=== PATIENT | female | born 1960 | race Caucasian/White ===

== ENCOUNTER 2019-07-12 13:52 | Emergency (ER) | payer MEDICARE, MEDICAID, SELFPAY ==
--- NOTE | ~2019-07-12 | XR_ITS ---
EXAMINATION: XR wrist LT min 3V DATE: 07/12/2019 14:36 INDICATION: Left wrist pain, initial encounter TECHNIQUE: Posteroanterior, ulnar deviation, oblique, and lateral views of the left wrist were obtain ed. COMPARISON: 07/19/2018 FINDINGS: There is no fracture, dislocation, or subluxation. There is advanced osteoarthritis at the triscaphe and first carpometacarpal joints. The soft tissues are normal. IMPRESSION: 1. Osteoarthritis without acute osseous abnormality. Reviewed, dictated and finalized at location A.
[2019-07-12 14:10] VITALS: BP 146/90; PULSE 98; RESP 20; TEMP 36.7; O2SAT 97
--- NOTE | 2019-07-12 14:22 | ED.GENADULT ---
HPI - General Adult General Chief complaint: Extremity Injury, Upper Stated complaint: Wrist pain History of Present Illness HPI narrative: Mercy vance a 59 presented to the ED with pain in her left wrist. She was pulling the starter string on a piece of gardening equipment. After pulling the string back her hand jerked back forward. She had immediate pain at the base of her left thumb and in her wirst. She is not sure if she hit it on anything. She had no other injuries during the incident. Related Data Home Medications Medication Instructions Recorded Confirmed albuterol sulfate 2.5 mg INHALATION PRN PRN ml 03/31/19 07/12/19 fluticasone furoate 200 1 inhalation INHALATION DAILY 03/31/19 07/12/19 mcg-vilanterol 25 mcg/dose inhalation powder tiotropium bromide 2.5 2 puff INHALATION DAILY 03/31/19 07/12/19 mcg/actuation mist for inhalation Allergies Allergy/AdvReac Type Severity Reaction Status Date / Time No Known Allergies Allergy Verified 06/26/19 15:03 Review of Systems Constitutional: Constitutional: Reports no additional constitutional complaints Cardiovascular: Cardiovascular: Reports no additional cardiovascular complaints Respiratory: Respiratory: Reports no additional respiratory complaints Gastrointestinal: Gastrointestinal: Reports no additional gastrointestinal complaints Genitourinary: Genitourinary: Reports no additional female genitourinary complaints Musculoskeletal: Musculoskeletal: Reports no additional musculoskeletal complaints Neurologic: Reports system reviewed and no additional complaints, except as documented [facility] Past Medical History Medical History Tobacco dependence Surgical History Surgical History History of carpal tunnel release History of hysterectomy Hx of cholecystectomy Status post right rotator cuff repair Social History Social History Smoking status: Former smoker Alcohol intake: never Substance use: never Substance use type: does not use Additional occupation/education comments: Disabled Gender identity (if verbalized by the patient): Female Exam Const: General: no acute distress and alert Orientation/consciousness: patient oriented x3 Limitations: No altered mental status HENMT: Other: Normocephalic, atraumatic Eyes: Conjunctivae: conjunctivae normal Neck: Neck: normal visual inspection Resp: Other: Speaks in complete sentences, non-labored respirations Cardio: Rate: regular rate Skin: General skin exam: normal color Rashes: no rashes Neuro: General: patient oriented x3 and moves all extremities Extrem: Other: Left hand has no deformity or discoloration. Sensation intact in all dermatomes and all digits. Radial pulse strong and palpable. Cap refill <1 sec in all digits 5/5 personnel research psychologist strength bilaterally. TTP at the base of the right thumb, anatomic snuff box, and radial side of the left. +Grind test on the left thumb. pain with resisted extension of the left thumb. Psych: Mental Status: mental status grossly normal Course Course Emergency Course: Mercy was seen and evaluated. Given 30mg of Toradol IM for pain. Ordered radiographs of the wrist and scaphoid. EXAMINATION: XR wrist LT min 3V DATE: 07/12/2019 14:36 INDICATION: Left wrist pain, initial encounter TECHNIQUE: Posteroanterior, ulnar deviation, oblique, and lateral views of the left wrist were obtained. COMPARISON: 07/19/2018 FINDINGS: There is no fracture, dislocation, or subluxation. There is advanced osteoarthritis at the triscaphe and first carpometacarpal joints. The soft tissues are normal. IMPRESSION: 1. Osteoarthritis without acute osseous abnormality. Vital Signs Vital signs: Vital Signs Temperature 36.7 C 07/12/19 14:10 Pulse Rate 98 07/12/19 14:10 Respiratory Rate 20 04
[2019-07-12] MEDS: KETOROLAC 30 MG/ML VIAL (*BKC) IM (14:27)
[2019-07-12 15:10] VITALS: RESP 15; O2SAT 100
--- NOTE | 2019-07-12 15:17 | PC.NURSE ---
WRIST SPLINT PLACED ON BY ERP
== END 2019-07-12 15:14 | disposition home or self-care (01) ==
PROVIDERS: Emergency Provider Family Medicine; PCP Family Medicine
DX: M25.532 Pain in left wrist (principal)
CPT/HCPCS: 73110; 96372; 99282; 99283; J1885; L3908

== ENCOUNTER 2019-09-20 08:08 | Emergency (ER) | payer MEDICARE, MEDICAID, SELFPAY ==
--- NOTE | ~2019-09-20 | XR_ITS ---
EXAMINATION: XR abdomen/kub 1V DATE: 09/20/2019 08:59 INDICATION: Abdominal cramping and constipation TECHNIQUE: A supine view of the abdomen on 2 radiographs was obtained. COMPARISON: 08/03/2013 FINDINGS: Small amount of gas and moderate amount of stool scattered throughout the colon. No dilated gas-fille d loops of bowel to suggest obstruction. Cholecystectomy clips in the right upper quadrant. IMPRESSION: 1. Moderate amount of colonic stool consistent with given history of constipation. Reviewed, dictated and finalized at location A. IMPRESSION: 1. Moderate amount of colonic stool consistent with given history of constipati on.
[2019-09-20 08:27] VITALS: BP 135/77; PULSE 86; RESP 20; TEMP 36.6; O2SAT 95
--- NOTE | 2019-09-20 08:27 | ED.ABDPAIN ---
HPI - Abdominal Pain General Chief Complaint: Urogenital-Female Stated Complaint: ABD PAIN Time Seen by Provider: 09/20/19 08:27 Source: patient and RN notes reviewed Mode of arrival: ambulatory Limitations: no limitations History of Present Illness HPI narrative: Patient states she has been having problems since Wednesday now 5 days ago. She has been having problems with constipation. She tried Metamucil Ex-Lax. She began cramping when she took the Ex-Lax last night. She only had a small amount of stool yesterday. She denies any urinary symptoms. She denies any fever chills nausea vomiting. Pain is generalized throughout her entire abdomen. MD elicited complaint: abdominal pain Pertinent past history: constipation Onset (ago): day(s) (5) Pain Consistency: intermittent and colicky Location: diffuse Severity: moderate Quality: cramping Radiation: none Migration to: no migration Exacerbating factors: eating Relieving factors: nothing Associated symptoms: denies other symptoms Treatments prior to arrival: other (Exlax, Metamucil) Related Data Home Medications Medication Instructions Recorded Confirmed albuterol sulfate 2.5 mg INHALATION PRN PRN ml 03/31/19 09/20/19 tiotropium bromide 2.5 2 puff INHALATION DAILY 03/31/19 09/20/19 mcg/actuation mist for inhalation Allergies Allergy/AdvReac Type Severity Reaction Status Date / Time No Known Allergies Allergy Verified 09/04/19 09:35 Review of Systems Review of Systems: All systems reviewed & are unremarkable except as noted in HPI and below PMFSH Past Medical History Medical History Tobacco dependence Surgical History Surgical History History of carpal tunnel release History of hysterectomy Hx of cholecystectomy Status post right rotator cuff repair Social History Social History Smoking status: Current some day smoker Alcohol intake: never Substance use: never Substance use type: does not use Additional occupation/education comments: Disabled Gender identity (if verbalized by the patient): Female Exam Const: General: healthy appearing, no acute distress and alert Nutritional Appearance: well nourished and obese centrally obese Orientation/consciousness: patient oriented x3 HENMT: Head: normal to inspection Ears: external ears normal General nose exam: Normal external nose present Face and sinus: normal facial exam Mouth: Yes lip normal and Yes moist mucous membranes Eyes: Conjunctivae: conjunctivae normal Pupils: Equal, round and reactive pupils present EOM: EOMs intact bilaterally Neck: Neck: normal visual inspection Resp: Effort & Inspection: normal respiratory effort Auscultation: clear to auscultation bilaterally Cardio: Rate: regular rate Rhythm: regular rhythm GI: GI Palp: Yes Soft to palpation, Yes Tenderness to palpation present (GI) (LLQ and difusley ), Yes Guarding due to palpation present (GI) and No Rebound tenderness present Auscultation: normal bowel sounds Back/Spine/Pelvis: Cervical Spine: cervical ROM normal Thoracic/Lumbar Spine: thoraco-lumbar ROM normal Skin: General skin exam: normal color Rashes: no rashes Neuro: General: patient oriented x3, moves all extremities and no focal motor deficits Speech: normal speech Gait exam (Neuro): Normal gait present Extrem: General: normal to inspection and no clubbing, cyanosis or edema Psych: Appearance: grossly normal and well kempt Mental Status: mental status grossly normal Affect: normal affect Attitude: cooperative Thought content: Yes Normal thought content present Course Course Emergency Course: patient had 2 rounds of enemas for her constipation. She feels significantly improved. Advised to use Mag citrate. Follow up with her primary care if significantly improved. Discharge Plan D
--- NOTE | 2019-09-20 08:57 | PC.NURSE ---
pt to xray per wheelchair
--- NOTE | 2019-09-20 09:01 | PC.NURSE ---
pt returned to room
[2019-09-20 09:05] LABS: Add Urine Microscopic? YES; Appearance Urine Clear (Clear); Bilirubin Urine 1+ (Negative); Blood Urine Negative (Negative); Color Urine Yellow (Yellow); Glucose Urine UA Negative (Negative); Ketones Urine Trace (Negative); Leukocyte Esterase Ur Negative (Negative); Nitrate Urine Positive (Negative); Protein Urine 1+ (Negative); Specific Grav Ur >= 1.030 (1.010-1.020)
[2019-09-20 09:09] LABS: Bacteria Urine 1+ /hpf; Mucus Urine Moderate /lpf; RBC Urine 0-2 /hpf (0-2); Squamous Epithelial Cell Urine Few /hpf (Few); WBC Urine 0-3 /hpf (0-3)
--- NOTE | 2019-09-20 09:34 | PC.NURSE ---
pt resting per commode, feels pressure in rectum. no stool noted on tubing when inserted
[2019-09-20 10:10] VITALS: BP 163/96; PULSE 78; RESP 20; TEMP 36.6; O2SAT 98
== END 2019-09-20 10:14 | disposition home or self-care (01) ==
PROVIDERS: Emergency Provider Emergency Medicine; PCP Nurse Practitioner Family
DX: K59.00 Constipation, unspecified (principal); F17.200 Nicotine dependence, unspecified, uncomplicated
CPT/HCPCS: 74018; 81001; 99282; 99283

== ENCOUNTER 2019-10-05 14:14 | Outpatient (CLI) | payer MEDICARE, MEDICAID, SELFPAY ==
--- NOTE | ~2019-10-05 | DEXA_ITS ---
BMD(1) Young-Adult(2) Age-Matched(3) Region (g/cm2) T-score Z-score WHO Classification L1 0.927 -1.7 -1.0 Osteopenia L2 1.022 -1.6 -0.8 Osteopenia L3 0.979 -1.9 -1.2 Osteopenia L4 1.046 -1.3 -0.6 Osteopenia L1-L4 0.996 -1.6 -0.9 Osteopenia Trend: L1-L4 Change vs Change vs Measured Age BMD(1) Baseline Previous Date [age]) (g/cm2) (%) (%) [birth year][age]05[birth year]2019 59.3 0[age]996 0.0 0.0 06/04/2017 57.0 0.996 0.0 6.2* 02/21/2016 55.7 0.938 -5.8* -5.8* 07/21/2013 53.1 0.996 baseline - * - Indicates significant change based on 95% confidence interval. 1 - Statistically 68% of repeat scans fall within 1SD (+- 0.010 g/cm2 for AP Spine L1-L4) 2 - [place] (Combined NHANES (ages 20-30) / Red e App (ages 20-40)) AP Spine Reference Population (v112) 3 - Matched for Age, Weight (females 25-100 kg), Ethnic 11 - World Health Organization - Definition of Osteoporosis and Osteopenia for Women: Normal = T-score at or above -1.0 SD; Osteopenia = T-score between -1.0 and -2.5 SD; Osteoporosis = T-score at or below -2.5 SD; (WHO definitions only apply when a young healthy Women reference database is used to determine T-scores.) Printed: 10/05/2019 2:55:06 PM (13.60)76:3.00:50.00:12.0 0.00:10.44 0.60x1.05 25.7:%Fat=37.8% 0.00:0.00 0.00:0.00 Filename: [id number] Scan Mode: Standard;OneScan 37.0 Bonegrafix [id number] BMD(1) Young-Adult(2,7) Age-Matched(3) Region (g/cm2) T-score Z-score WHO Classification Neck Left 0.985 -0.4 0.6 Normal Right 1.033 0.0 0.9 Normal Mean 1.009 -0.2 0.7 Normal Difference 0.048 0.3 0.3 - Total Left 1.057 0.4 1.0 Normal Right 1.073 0.5 1.1 Normal Mean 1.065 0.5 1.0 Normal Difference 0.016 0.1 0.1 - Hip [place] Length Comparison (mm) (Right = 95.8 mm) (Mean = 102.3 mm) (Left = 93.9 mm) Trend: Total Mean Change vs Change vs Measured Age BMD(1) Baseline Previous Date (years) (g/cm2) (%) (%) [birth year]05/2019 59.3 1.065 1.8 1.8 07/21/2013 53.1 1.046 baseline - 1 - Statistically 68% of repeat scans fall within 1SD (+- 0.010 g/cm2 for DualFemur Total) 2 - [place] (Combined NHANES (ages 20-30) / Red e App (ages 20-40)) Femur Reference Population (v112) 3 - Matched for Age, Weight (females 25-100 kg), Ethnic 7 - DualFemur Total T-score difference is 0.1. Asymmetry is None. 11 - World Health Organization - Definition of Osteoporosis and Osteopenia for Women: Normal = T-score at or above -1.0 SD; Osteopenia = T-score between -1.0 and -2.5 SD; Osteoporosis = T-score at or below -2.5 SD; (WHO definitions only apply when a young healthy Women reference database is used to determine T-scores.) Printed: 10/05/2019 2:55:06 PM (13.60); Filename: [id number]; Right Femur; 19.0:%Fat=38.1%; Neck Angle (deg)= 66; Scan Mode: Standard 37.0 uGy; Left Femur; 19.1:%Fat=36.9%; Neck Angle (deg)= 67; Scan Mode: Standard 37.0 uGy Cintric [id number] Dear Meggan Wang, Your patient Mercy Martinez completed a BMD test on 10/05/2019 using the Cintric DXA System (analysis version: 13.60) manufactured by [employer]. The following summarizes the results of our evaluation. PATIENT BIOGRAPHICAL: Name: Mercy Martinez
== END 2019-10-05 14:15 | disposition home or self-care (01) ==
LOC: CHSIMG 14:16
PROVIDERS: PCP Nurse Practitioner Family; Visit Provider Nurse Practitioner Family
DX: M85.80 Other specified disorders of bone density and structure, unspecified site (principal); Z78.0 Asymptomatic menopausal state; F17.200 Nicotine dependence, unspecified, uncomplicated; Z92.29 Personal history of other drug therapy
CPT/HCPCS: 77080

== ENCOUNTER 2020-02-14 15:12 | Outpatient (CLI) | payer MEDICARE, SELFPAY ==
[2020-02-14 16:13] LABS: SARS-CoV-2 Ag Negative (Negative)
== END 2020-02-14 15:13 | disposition home or self-care (01) ==
LOC: CHSLAB 15:14
PROVIDERS: PCP Nurse Practitioner Family; Visit Provider Nurse Practitioner Family
DX: Z20.828 Contact with and (suspected) exposure to other viral communicable diseases (principal)
CPT/HCPCS: 87426

== ENCOUNTER 2020-04-01 14:14 | Outpatient (CLI) | payer MEDICARE, MEDICAID, SELFPAY ==
[2020-04-01 22:17] LABS: SARS-CoV-2 RNA PCR Positive
== END 2020-04-01 14:15 | disposition home or self-care (01) ==
LOC: CHSLAB 14:21
PROVIDERS: PCP Nurse Practitioner Family; Visit Provider Nurse Practitioner Family
DX: U07.1 COVID-19 (principal); R05 Cough
CPT/HCPCS: C9803; U0003

== ENCOUNTER 2020-05-21 13:39 | Outpatient (CLI) | payer MEDICARE, MEDICAID, SELFPAY ==
--- NOTE | ~2020-05-21 | XR_ITS ---
XR chest 2V DATE: 05/21/2020 14:10 INDICATION: Shortness of breath, right chest pain TECHNIQUE: PA and lateral views COMPARISON: 10/25/2018 2 view chest FINDINGS: Normal heart size. There is aortic tortuosity. The lungs are hyperinflated, suggesting COPD. No pulmonary infiltrate or consolidation, pleural effus ion or pulmonary vascular congestion or pneumothorax is detected. Surgical clips, right upper quadrant, consistent with cholecystectomy. Suture anchors noted at the right humeral head. Diffuse osteopenia. IMPRESSION: Bilateral hyperinflation; no active cardiopulmonary disease Reviewed, dictated and finalized at location A. STANT MANAGER [employer]
[2020-05-21 13:53] LABS: Basophils Absolute Auto 0.04 K/mm3 (0.00-0.10); Basophils Percent Auto 0.8 % (0.0-1.0); Eosinophils Absolute Auto 0.16 K/mm3 (0.02-0.50); Eosinophils Percent Auto 3.2 % (1.0-6.0); Hematocrit 33.2 % (35.0-49.0); Hemoglobin 10.8 g/dL (12.0-15.0); Immature Granulocyte Absolute 0.01 K/mm3 (0.00-0.00); Immature Granulocyte Percent A 0.2 % (0.0-0.0); Lymphocytes Absolute Auto 1.72 K/mm3 (1.10-4.50); Mean Corpuscular HGB Conc 32.5 g/dL (32.0-36.0); Mean Corpuscular Hemoglobin 28.1 pg (27.0-31.0); Mean Corpuscular Volume 86.2 fL (78.0-102.0); Mean Platelet Volume 9.7 fl (9.2-11.8); Monocytes Percent Auto 11.9 % (2.0-11.0); Neutrophils Absolute Auto 2.5 K/mm3 (1.7-7.2); Neutrophils Percent Auto 49.9 % (50.0-70.0); Platelet Count Result 193 K/mm3 (150-420); Red Blood Count 3.85 M/mm3 (4.20-5.40); Red Cell Distribution Width 12.3 % (11.6-14.4); White Blood Count 5.1 K/mm3 (4.8-10.8)
[2020-05-21 15:16] LABS: Alanine Aminotransferase 21 U/L (14-59); Alkaline Phosphatase 53 U/L (46-116); Anion Gap 9 mmol/L (8-16); Aspartate Amino Transferase 16 U/L (15-37); Bilirubin,Total 0.3 mg/dL (0.00-1.00); Blood Urea Nitrogen 18 mg/dL (7-18); Calcium 8.8 mg/dL (8.5-10.1); Carbon Dioxide 27 mmol/L (21-32); Chloride 106 mmol/L (98-108); Cholesterol 117 mg/dL (0-200); Estimated Glomerular Filt Rate > 60; Folic Acid 17.3 ng/mL (8.6->20); Glucose 166 mg/dL (70-99); HDL Direct 49 mg/dL (40-60); LDL Cholesterol Calculated 41 mg/dL (<130); Magnesium 1.8 mg/dL (1.8-2.4); Osmolality Calculated 299 mOsm/kg (285-295); Potassium 3.5 mmol/L (3.5-5.1); Sodium 142 mmol/L (136-145); Total Protein 6.2 g/dL (6.4-8.2); Triglycerides 135 mg/dL (0-150); Vitamin B12 153 pg/mL (193-986)
[2020-05-21 16:11] LABS: Hemoglobin A1C 5.8 % (<5.7)
[2020-05-23 11:55] LABS: Vitamin D 25 Hydroxy 51 ng/mL (30-100)
== END 2020-05-21 13:40 | disposition home or self-care (01) ==
LOC: CHSLAB 13:43
PROVIDERS: PCP Family Medicine; Visit Provider Nurse Practitioner Family
DX: B94.8 Sequelae of other specified infectious and parasitic diseases (principal); R06.02 Shortness of breath; E83.42 Hypomagnesemia; I10 Essential (primary) hypertension; R73.01 Impaired fasting glucose; Z79.899 Other long term (current) drug therapy
CPT/HCPCS: 36415; 71046; 80053; 80061; 82306; 82607; 82746; 83036; 83735; 85025

== ENCOUNTER 2020-06-04 14:03 | Emergency (ER) | payer MEDICARE, MEDICAID, SELFPAY ==
[2020-06-04] VITALS (11 sets, daily range): BP systolic 135–156; BP diastolic 63–94; PULSE 98–123; RESP 20–24; TEMP 36.8; O2SAT 92–100
--- NOTE | ~2020-06-04 | XR_ITS ---
EXAMINATION: XR chest 1V portable EXAM DATE: 06/04/2020 15:02 INDICATION: Cough and shortness of breath. TECHNIQUE: Portable AP frontal chest x-ray was obtained. Comparison is made to prior examination from 05/21/2020. FINDINGS: The lungs are clear. There are no pleural effusions. The cardiomediastinal silhouette is within normal limits. There is no pneumothorax suspected. The bones and soft tissues are unremarkab le. IMPRESSION: No acute cardiopulmonary findings. Reviewed, dictated and finalized at location B. FRAME ARCHITECT
--- NOTE | 2020-06-04 14:21 | ECG_ITS ---
Measurements Intervals [place] Rate: 90 P: 74 MI: 131 QRS: 41 QRSD: 86 T: 63 QT: 366 QTc: 449 Interpretive Statements SINUS RHYTHM VOLTAGE CRITERIA FOR LVH BORDERLINE ECG Electronically Signed On 06-04-2020 16:37:36 HEAD OF ETHICS AND COMPLIANCE by Brandon Weinstein D.O.
[2020-06-04] MEDS: IPRATROPIUM 0.5 MG/ALBUTEROL SULFATE 2.5 MG AMPUL.NEB 3 ML INHALATION (14:39)
[2020-06-04 14:41] LABS: Base Excess ABG 2.3 mmol/L (0-2); Carboxyhemoglobin 0.4 % (0-1.5); Methemoglobin ABG 0 % (0-1.5); Oxygen Content ABG 16.5 %vol (16.0-22.0); Oxygen Saturation ABG 96.7 % (95-97); Oxyhemoglobin 96.3 % (94-100); PCO2 ABG 47.7 mmHg (35-45); PO2 ABG 93.1 mmHg (80-90); Reduced Hemoglobin 3.3 % (0-1.5); Total Hemoglobin 12.1 g/dL; pH ABG 7.39 (7.35-7.45)
[2020-06-04 14:44] LABS: Modified Allen's Test Pass; Site Drawn RIGHT RADIAL
[2020-06-04 14:45] LABS: Device NASAL CANNULA
[2020-06-04 14:48] LABS: Basophils Absolute Auto 0.03 K/mm3 (0.00-0.10); Basophils Percent Auto 0.5 % (0.0-1.0); Eosinophils Absolute Auto 0.21 K/mm3 (0.02-0.50); Eosinophils Percent Auto 3.8 % (1.0-6.0); Hematocrit 35.3 % (35.0-49.0); Hemoglobin 11.4 g/dL (12.0-15.0); Immature Granulocyte Absolute 0.02 K/mm3 (0.00-0.00); Immature Granulocyte Percent A 0.4 % (0.0-0.0); Lymphocytes Absolute Auto 0.59 K/mm3 (1.10-4.50); Lymphocytes Percent Auto 10.6 % (18.0-42.0); Mean Corpuscular HGB Conc 32.3 g/dL (32.0-36.0); Mean Corpuscular Hemoglobin 27.5 pg (27.0-31.0); Mean Corpuscular Volume 85.1 fL (78.0-102.0); Mean Platelet Volume 10.4 fl (9.2-11.8); Monocytes Percent Auto 1.8 % (2.0-11.0); Neutrophils Absolute Auto 4.6 K/mm3 (1.7-7.2); Neutrophils Percent Auto 82.9 % (50.0-70.0); Platelet Count Result 204 K/mm3 (150-420); Red Blood Count 4.15 M/mm3 (4.20-5.40); Red Cell Distribution Width 12.2 % (11.6-14.4); White Blood Count 5.6 K/mm3 (4.8-10.8)
[2020-06-04 14:52] LABS: Anion Gap 9 mmol/L (8-16); Blood Urea Nitrogen 14 mg/dL (7-18); Calcium 9.8 mg/dL (8.5-10.1); Carbon Dioxide 25 mmol/L (21-32); Chloride 104 mmol/L (98-108); Estimated CRCL calculation 69 ml/min; Estimated Glomerular Filt Rate > 60; Glucose 168 mg/dL (70-99); Osmolality Calculated 290 mOsm/kg (285-295); Sodium 138 mmol/L (136-145)
[2020-06-04] MEDS: ALBUTEROL SULFATE NEB 2.5 MG/3 ML INH 10 MG INHALATION (15:00)
[2020-06-04 15:01] LABS: D Dimer 0.55 mg/L (0.19-0.50)
[2020-06-04 15:06] LABS: BNP 546 pg/mL (0-100)
[2020-06-04] MEDS: DEXAMETHASONE SOD PHOS INJ 4 MG/ML VIAL 10 MG IV PUSH (15:06)
--- NOTE | 2020-06-04 15:38 | ED.SOB ---
HPI - SOB/Dyspnea General Chief Complaint: Shortness of Breath/Dyspnea Stated Complaint: cough sob sore throat Source: patient Mode of arrival: EMS Limitations: no limitations History of Present Illness HPI Narrative: Pt was brought to ED with SOB. Had been using her nebulizers at home, but just cant break the SOB. no fevers, but does have nausea and vomiting. MD elicited complaint: shortness of breath Pertinent past history: COPD Onset (ago): hour(s) Timing: constant Severity: moderate Exacerbating factors: exertion Relieving factors: nothing Known history of: COPD Associated symptoms: denies other symptoms, cough, wheezing and nausea/vomiting Treatment prior to arrival: bronchodilator Related Data Home Medications Medication Instructions Recorded Confirmed tiotropium bromide 2.5 2 puff INHALATION DAILY 03/31/19 06/04/20 mcg/actuation mist for inhalation Allergies Allergy/AdvReac Type Severity Reaction Status Date / Time No Known Allergies Allergy Verified 06/04/20 13:24 Review of Systems Constitutional: Constitutional: Denies chills, Reports fatigue, Denies fever(s) and Reports weakness Eyes: Eyes: Reports no additional eye complaints ENT: Denies dysphagia, Denies dizziness, Denies epistaxis, Denies nasal congestion and Reports sore throat Cardiovascular: Cardiovascular: Reports no additional cardiovascular complaints Respiratory: Respiratory: Reports no additional respiratory complaints Gastrointestinal: Gastrointestinal: Denies abdominal pain, Denies bloating, Denies constipation, Reports heartburn, Denies diarrhea, Reports nausea and Reports vomiting Genitourinary: Genitourinary: Reports no additional female genitourinary complaints Musculoskeletal: Musculoskeletal: Reports no additional musculoskeletal complaints Integumentary/Breasts: Skin/Breast: Reports system reviewed and no additional complaints, except as docu Neurologic: Reports system reviewed and no additional complaints, except as documented Psychiatric: Psychiatric: Reports no additional psychiatric complaints Endocrine: Endocrine: Reports no additional endocrine complaints Hematologic/Lymphatic: Hematologic/Lymphatic: Reports no additional hematologic/lymphatic complaints Allergic/Immunologic: Allergic/Immunologic: Reports no additional allergic/immunologic complaints PMFSH Past Medical History Medical History Cough Elevated glucose level Exposure to COVID-19 virus Positive depression screening Shortness of breath Tobacco dependence Surgical History Surgical History History of carpal tunnel release History of hysterectomy Hx of cholecystectomy Status post right rotator cuff repair Social History Social History Smoking status: Current every day smoker Alcohol intake: never Substance use: never Substance use type: does not use Additional occupation/education comments: Disabled Gender identity (if verbalized by the patient): Female Exam Const: General: no acute distress and alert Orientation/consciousness: patient oriented x3 HENMT: Head: normal to inspection Eyes: Conjunctivae: conjunctivae normal Pupils: Equal, round and reactive pupils present Neck: Neck: normal visual inspection Chest: Chest palpation & inspection: normal inspection of the chest Resp: Effort & Inspection: normal respiratory effort and uses accessory muscles Auscultation: diminished lung sounds Cardio: Rate: tachycardic Rhythm: regular rhythm GI: Inspection: non-distended GI Palp: Yes Soft to palpation and No Tenderness to palpation present (GI) Back/Spine/Pelvis: Back: no CVA tenderness Skin: General skin exam: normal color Rashes: no rashes Neuro: General: patient oriented x3, moves all extremities, no focal motor deficits and CN's II-XI
== END 2020-06-04 18:18 | disposition home or self-care (01) ==
PROVIDERS: Nurse Practitioner; Emergency Provider Emergency Medicine; PCP Family Medicine
DX: J44.9 Chronic obstructive pulmonary disease, unspecified (principal); F17.200 Nicotine dependence, unspecified, uncomplicated
CPT/HCPCS: 36415; 36600; 71045; 80048; 82375; 82805; 83050; 83880; 85025; 85380; 93005; 94640; 96374; 99283; 99284; J1100

== ENCOUNTER 2020-08-16 16:38 | Outpatient (NON) | payer MEDICARE, MEDICAID, SELFPAY | END 2020-08-16 16:39 | disposition home or self-care (01) | LOC: CHSLAB 16:42 | PROVIDERS: PCP Nurse Practitioner Family; Visit Provider Nurse Practitioner Family | DX: Z12.4 Encounter for screening for malignant neoplasm of cervix (principal) | CPT/HCPCS: 88175; G0145 ==

== ENCOUNTER 2021-03-13 07:34 | Observation (INO) | payer MEDICARE, MEDICAID, SELFPAY ==
--- NOTE | ~2021-03-13 | XR_ITS ---
EXAMINATION: XR chest 2V EXAM DATE: 03/13/2021 09:26 INDICATION: shortness of breath, pain under RT breast, hx COPD. TECHNIQUE: Frontal and lateral projections of the chest obtained and reviewed. Comparison is made to prior examination from 06/04/2020. FINDINGS: The lungs are clear. There are no pleural effusions. The cardiomediastinal silhouette is within normal limits. There is no pneumothorax suspected. The bones and soft tissues are unremarkab le. There are cholecystectomy clips. Right shoulder rotator cuff repair anchors. IMPRESSION: No acute cardiopulmonary findings. Reviewed, dictated and finalized at location B. RIAL ASSEMBLER
--- NOTE | ~2021-03-13 | CT_ITS ---
EXAMINATION: CT abdomen pelvis w con EXAM DATE: 03/13/2021 09:04 INDICATION: Abdominal pain pain under right breast since 2am with SOB. TECHNIQUE: Spiral CT of the abdomen and pelvis was performed following intravenous injection of 100 m L Omnipaque 350. Axial, coronal and sagittal images of the abdomen and pelvis were reviewed. The do se-length product (DLP) for this examination was 367.55 mGy-cm. The exposure was tailored according to patient size (auto mA exposure control), and iterative reconstruction (ASIR) was used as additiona l dose reduction technique. Correlation is made to CT pelvis from 07/19/2018. FINDINGS: The liver, spleen, adrenal glands and pancreas are unremarkable. There are cholecystectomy clips. Portal and splenic veins are patent. Kidneys enhance symmetrically. There is no hydronephr osis. Atrophic uterus The bladder is unremarkable. There is no retroperitoneal or pelvic lymphade nopathy. There is mild scattered arteriosclerotic disease. There is [place] supraumbilical fat-co ntaining hernia measuring 4 x 7 cm. The appendix is normal. There is moderate sigmoid predominant colonic diverticulosis. There is no ad jacent inflammatory change to suggest diverticulitis. There is a 3 x 4 cm duodenal diverticulum. The re is expected amount of colonic stool. No free intraperitoneal gas. The heart is normal in size. There are no pericardial or pleural effusions. Small amount of basilar atelectasis. There are no acute fractures identified. IMPRESSION: 1. No acute intra-abdominal findings. 2. Moderate sized supraumbilical fat-containing hernia. 3. Colonic, duodenal diverticulosis. Reviewed, dictated and finalized at location B. T MANAGER
[2021-03-13 07:35] VITALS: BP 162/71; PULSE 105; RESP 24; TEMP 36.6; O2SAT 93
--- NOTE | 2021-03-13 07:42 | ECG_ITS ---
Measurements Intervals [place] Rate: 106 P: 67 NM: 126 QRS: 33 QRSD: 92 T: 26 QT: 330 QTc: 439 Interpretive Statements SINUS TACHYCARDIA VOLTAGE CRITERIA FOR LVH MINIMAL Q WAVES- INF/LAT LEADS ABNORMAL ECG Electronically Signed On 03-13-2021 11:00:38 MANAGER [employer]AMP by Brandon Weinstein D.O.
[2021-03-13 08:00] VITALS: BP 128/61; PULSE 103; PULSE 105; RESP 22; RESP 24; TEMP 37.2; O2SAT 93; O2SAT 94
[2021-03-13 08:11] LABS: Basophils Absolute Auto 0.03 K/mm3 (0.00-0.10); Basophils Percent Auto 0.3 % (0.0-1.0); Eosinophils Absolute Auto 0.05 K/mm3 (0.02-0.50); Eosinophils Percent Auto 0.5 % (1.0-6.0); Hematocrit 32.5 % (35.0-49.0); Hemoglobin 10.8 g/dL (12.0-15.0); Immature Granulocyte Absolute 0.02 K/mm3 (0.00-0.00); Immature Granulocyte Percent A 0.2 % (0.0-0.0); Lymphocytes Absolute Auto 3.01 K/mm3 (1.10-4.50); Lymphocytes Percent Auto 30.6 % (18.0-42.0); Mean Corpuscular HGB Conc 33.2 g/dL (32.0-36.0); Mean Corpuscular Hemoglobin 26.9 pg (27.0-31.0); Mean Platelet Volume 10.2 fl (9.2-11.8); Monocytes Absolute Auto 1.47 K/mm3 (0.10-0.90); Monocytes Percent Auto 14.9 % (2.0-11.0); Neutrophils Absolute Auto 5.3 K/mm3 (1.7-7.2); Neutrophils Percent Auto 53.5 % (50.0-70.0); Platelet Count Result 163 K/mm3 (150-420); Red Blood Count 4.01 M/mm3 (4.20-5.40); Red Cell Distribution Width 13.2 % (11.6-14.4); White Blood Count 9.8 K/mm3 (4.8-10.8)
[2021-03-13 08:19] LABS: Add Urine Microscopic? NO; Appearance Urine Clear (Clear); Bilirubin Urine Negative (Negative); Blood Urine Negative (Negative); Color Urine Yellow (Yellow); Glucose Urine UA Negative (Negative); Ketones Urine Negative (Negative); Leukocyte Esterase Ur Negative (Negative); Nitrate Urine Negative (Negative); Protein Urine Negative (Negative); Specific Grav Ur >= 1.030 (1.010-1.020); Urobilinogen Urine 0.2 mg/dL (0.2-1.0)
[2021-03-13] MEDS: SODIUM CHLORIDE 0.9% IV 1,000 ML 999 ML IV CONT (08:22)
[2021-03-13] MEDS: ONDANSETRON INJ 4 MG/2 ML VIAL IV PUSH (08:24)
[2021-03-13] MEDS: MORPHINE SULFATE (*CRX) 4 MG/ML INJ IV PUSH (08:25)
[2021-03-13 08:27] LABS: INR 1.1; Partial Thromboplastin Time 22.9 SEC (23.90-30.70); Prothrombin Time 11.4 Seconds (9.50-12.10)
[2021-03-13 08:31] LABS: Lactic Acid Reflex 2.3 mmol/L (0.4-2.0)
[2021-03-13 08:37] LABS: Alanine Aminotransferase 17 U/L (14-59); Albumin Level 3.1 g/dL (3.4-5.0); Alkaline Phosphatase 91 U/L (46-116); Anion Gap 12 mmol/L (8-16); Aspartate Amino Transferase 22 U/L (15-37); Bilirubin,Total 0.4 mg/dL (0.00-1.00); Blood Urea Nitrogen 18 mg/dL (7-18); Calcium 8.8 mg/dL (8.5-10.1); Carbon Dioxide 25 mmol/L (21-32); Chloride 103 mmol/L (98-108); Estimated CRCL calculation 67 ml/min; Estimated Glomerular Filt Rate > 60; Glucose 146 mg/dL (70-99); Lipase 88 U/L (73-393); Osmolality Calculated 294 mOsm/kg (285-295); Potassium 2.8 mmol/L (3.5-5.1); Sodium 140 mmol/L (136-145); Troponin I 33.2 ng/L (0.00-60.4)
[2021-03-13 08:39] LABS: NT Pro B Type Natriuretic Pept 531 pg/mL (0-125)
[2021-03-13 08:39] LABS: CRP 1.1 mg/dL (0.0-0.9)
[2021-03-13 09:49] VITALS: BP 123/59; PULSE 105; RESP 22; TEMP 37.2; O2SAT 97
--- NOTE | 2021-03-13 09:49 | ED.SOB ---
HPI - SOB/Dyspnea General Chief Complaint: Shortness of Breath/Dyspnea Stated Complaint: pain Source: patient Mode of arrival: ambulatory Limitations: no limitations History of Present Illness HPI Narrative: this is a 60-year-old female that presents with some shortness of breath with some right upper quadrant and epigastric abdominal pain denies any chest pain currently there is no fever chills, with some mild shortness of breath with some no fever chills no cough, patient's main concern is that abdominal pain the epigastric and right upper quadrant started about 1 and 1 in the morning yesterday and has worsened over time. Patient has a history of GERD with history of COPD hypertension and pressure. Patient feels nauseated with no nausea vomiting no dysuria no flank pain and patient is status post cholecystectomy. MD elicited complaint: shortness of breath Pertinent past history: COPD Onset (ago): day(s) Context: anxiety Severity: moderate Related Data Home Medications Medication Instructions Recorded Confirmed tiotropium bromide 2.5 2 puff INHALATION DAILY 03/31/19 03/13/21 mcg/actuation mist for inhalation fluticasone furoate 200 1 ea INHALATION BID 08/09/20 03/13/21 mcg-vilanterol 25 mcg/dose inhalation powder montelukast 10 mg tablet 10 mg PO DAILY tablet 08/09/20 03/13/21 Allergies Allergy/AdvReac Type Severity Reaction Status Date / Time No Known Allergies Allergy Verified 03/07/21 07:02 Review of Systems Review of Systems: All systems reviewed & are unremarkable except as noted in HPI and below PMFSH Past Medical History Medical History Atypical chest pain Cough Elevated glucose level Exposure to COVID-19 virus Family history of other kidney diseases Positive depression screening Shortness of breath Tobacco dependence Surgical History Surgical History History of carpal tunnel release History of hysterectomy Hx of cholecystectomy Status post right rotator cuff repair Family History Family History Father Alcoholic Cancer Mother Asthma Diabetes mellitus Hypertension Depression Thyroid disorder Sibling Asthma Thyroid disorder Other Asthma Thyroid disorder Grandparent Cancer Thyroid disorder Grandparent Cancer Daughter Alports syndrome Social History Social History Smoking status: Current every day smoker Alcohol intake: never Substance use: never Substance use type: does not use Additional occupation/education comments: Disabled Gender identity (if verbalized by the patient): Female Exam Const: General: no acute distress Orientation/consciousness: patient oriented x3 HENMT: Head: normal to inspection Eyes: Conjunctivae: conjunctivae normal Pupils: Equal, round and reactive pupils present EOM: EOMs intact bilaterally Direct Ophthalmoscopy: no photophobia Neck: Neck: normal visual inspection, no lymphadenopathy and no meningeal signs Chest: Chest palpation & inspection: normal inspection of the chest Resp: Effort & Inspection: normal respiratory effort Cardio: Rate: regular rate Rhythm: regular rhythm GI: GI Palp: Yes Soft to palpation and Yes Tenderness to palpation present (GI) ( Tender right upper quadrant epigastric area) Percussion: Yes normal to percussion : General: Yes no CVA tenderness Urinary Catheter: Urinary Catheter: patent and draining Back/Spine/Pelvis: Back: no CVA tenderness Skin: General skin exam: normal color Rashes: no rashes Neuro: General: patient oriented x3 and moves all extremities Extrem: General: normal to inspection and no pedal edema Psych: Mental Status: mental status grossly normal Affect: normal affect Course Course Emergency Course: patient main concern i
[2021-03-13 09:56] VITALS: PULSE 104; RESP 22; O2SAT 94
[2021-03-13 10:53] VITALS: BMI 25.8
--- NOTE | 2021-03-13 11:01 | PC.NURSE ---
Patient admitted to room 204. Oriented to call light. C/O severe pain in R ribs. Frequent dry cough noted.
[2021-03-13 11:06] LABS: Reflex Lactic Acid Yes or No Add Lactic
[2021-03-13 11:25] VITALS: BP 146/67; PULSE 104; RESP 22; TEMP 37.3; O2SAT 94
--- NOTE | 2021-03-13 12:14 | PC.NURSE ---
Patient left AMA at 1205. Patient expressed to nurse that she was upset that MD had ordered her NPO due to nausea, and was upset because she didn't feel that her pain was managed. Patient left without signing AMA form, as she dressed and left without saying anything further.
[2021-03-13 12:22] LABS: SARS-CoV-2 Ag Negative (Negative)
--- NOTE | 2021-03-13 12:31 | PM.SD2 ---
Same Day Admit/Disch: HPI History of Present Illness Chief complaint: pain Narrative: Mercy Martinez is a 60 year old female that presented to our emergency department complaining abdominal pain. Unable to assess patient patient left AMA. I did catch patient while in her car and remove her peripheral IV to her left arm. [facility] Past Medical History Medical History Atypical chest pain Cough Elevated glucose level Exposure to COVID-19 virus Family history of other kidney diseases Positive depression screening Shortness of breath Tobacco dependence Surgical History Surgical History History of carpal tunnel release History of hysterectomy Hx of cholecystectomy Status post right rotator cuff repair Family History Family History Father Alcoholic Cancer Mother Asthma Diabetes mellitus Hypertension Depression Thyroid disorder Sibling Asthma Thyroid disorder Other Asthma Thyroid disorder Grandparent Cancer Thyroid disorder Grandparent Cancer Daughter Alports syndrome Social History Social History Smoking packs per day: 0.3 Smoking cigarettes per day: 6.0 Years smoked: 46 Smoking pack-years: 13.80 Smoking status: Current some day smoker Tobacco type: cigarettes Second hand tobacco smoke exposure: Yes Alcohol intake: former Substance use: former Substance use type: does not use Additional occupation/education comments: Disabled Gender identity (if verbalized by the patient): Female Spiritual care concerns: No Same Day Admit/Disch: Med Pre-admit Medications Home Medications Medication Instructions Recorded Confirmed Type albuterol sulfate 90 mcg/actuation 1 inhalation INHALATION Q4H PRN 03/31/19 03/13/21 Rx aerosol inhaler #8.5 gm tiotropium bromide 2.5 2 puff INHALATION DAILY 03/31/19 03/13/21 History mcg/actuation mist for inhalation albuterol sulfate 2.5 mg INHALATION Q4-6H PRN #15 ml 05/21/20 03/13/21 Rx aspirin 81 mg tablet,delayed 81 mg PO DAILY #90 tablet 08/09/20 03/13/21 Rx release diltiazem HCl 60 mg 60 mg PO BID #60 cap 08/09/20 03/13/21 Rx capsule,extended release 12 hr fluticasone furoate 200 1 ea INHALATION BID 08/09/20 03/13/21 History mcg-vilanterol 25 mcg/dose inhalation powder montelukast 10 mg tablet 10 mg PO DAILY tablet 08/09/20 03/13/21 History pantoprazole 40 mg tablet,delayed 40 mg PO DAILY #90 tablet 08/09/20 03/13/21 Rx release sertraline 50 mg tablet 50 mg PO DAILY #90 tablet 08/09/20 03/13/21 Rx losartan 100 mg tablet See Rx Instructions .ROUTE 03/04/21 03/13/21 Rx .COMPLEX #90 tablet doxycycline monohydrate 100 mg 100 mg PO BID 7 Days #14 tablet 03/07/21 03/13/21 Rx tablet tizanidine 2 mg tablet 2 mg PO TID PRN #20 tablet 03/07/21 03/13/21 Rx Exam Narrative: Unable to complete patient left AMA DS: Data Data Completed and Pending Labs on day of discharge: Labs from last 24 hours 03/13/21 03/13/21 03/13/21 10:51 08:12 08:00 WBC RBC Hgb Hct MCV MCH MCHC RDW Plt Count MPV Immature Gran % (Auto) Neut % (Auto) Lymph % (Auto) Price % (Auto) Eos % (Auto) Baso % (Auto) Lymph # (Auto) Price # (Auto) Eos # (Auto) Baso # (Auto) Abs Immat Gran (auto) Absolute Neuts (auto) Absolute Nucleated RBC Nucleated RBC % PT INR APTT Sodium Potassium Chloride Carbon Dioxide Anion Gap BUN Creatinine Estim Creat Clear Calc Estimated GFR Glucose Calculated Osmolality Lactic Acid Calcium Total Bilirubin AST ALT Alkaline Phosphatase Troponin I C-Reactive Protein 1.1 H NT-Pro-B Natriuret Pep 531 H Total Protein Albumin
--- NOTE | 2021-03-18 14:05 | PC.NURSE ---
Unable to contact for discharge call back.
== END 2021-03-13 12:10 | disposition left against medical advice (07) ==
LOC: CHSED 07:37 → CHS2ND 10:10
PROVIDERS: Nurse Practitioner; Admitting Provider Emergency Medicine; Emergency Provider Emergency Medicine; PCP Nurse Practitioner Family; Visit Provider Emergency Medicine
DX: R10.9 Unspecified abdominal pain (principal); K21.9 Gastro-esophageal reflux disease without esophagitis; K29.70 Gastritis, unspecified, without bleeding; J44.9 Chronic obstructive pulmonary disease, unspecified; I10 Essential (primary) hypertension; E05.90 Thyrotoxicosis, unspecified without thyrotoxic crisis or storm; F17.200 Nicotine dependence, unspecified, uncomplicated; Z90.49 Acquired absence of other specified parts of digestive tract; Z20.822 Contact with and (suspected) exposure to COVID-19; Z90.710 Acquired absence of both cervix and uterus
CPT/HCPCS: 36415; 71046; 74177; 80053; 81003; 83605; 83690; 83880; 84484; 85025; 85610; 85730; 86140; 87040; 87426; 93005; 96361; 96374; 96375; 99283; 99284; A9270; C9803; G0378; J2270; J2405; J7030; Q9967

== ENCOUNTER 2021-06-02 01:24 | Emergency (ER) | payer MEDICARE, MEDICAID, SELFPAY ==
--- NOTE | ~2021-06-02 | XR_ITS ---
EXAMINATION: XR chest 1V portable DATE: 06/02/2021 02:55 INDICATION: Cough. Fall. TECHNIQUE: A single frontal view of the chest was obtained. COMPARISON: Chest 2 views 03/13/2021 FINDINGS: A calcified left lung nodule and calcified left hilar lymph nodes are consistent with old g ranulomatous disease. No pleural effusion or pneumothorax. The heart size is normal. There are suture anchors in right humeral head. IMPRESSION: 1. No acute cardiopulmonary disease. Reviewed, dictated and finalized at location A. T BULB ASSEMBLER
--- NOTE | ~2021-06-02 | CT_ITS ---
EXAMINATION: CT lumbar spine wo con DATE: 06/02/2021 02:52 INDICATION: Back pain. Fall. TECHNIQUE: Computed tomography (CT) of the lumbar spine was performed without intravenous contrast. A utomated exposure control and iterative reconstruction technique were employed. The dose-length produ ct was 235.50 mGy-cm. COMPARISON: CT abdomen and pelvis 03/13/2021 FINDINGS: There are changes of cholecystectomy. There is 4 mm anterolisthesis of L4 on L5. Vertebral body heights are normal. There is mildly decreased disc height from T12-L1 through L5-S1. The followi ng disc levels are specifically discussed: L1-L2: The disc is bulging. There is severe right and moderate left facet joint osteoarthritis. There is no neural foraminal stenosis. There is mild central canal stenosis. L2-L3: The disc is bulging. There is mild left facet joint osteoarthritis. There is mild bilateral ne ural foraminal stenosis. There is mild central canal stenosis. L3-L4: The disc is bulging. There is severe right and mild left facet joint osteoarthritis. There is mild bilateral neural foraminal stenosis. There is mild central canal stenosis. L4-L5: The disc is bulging. There is severe bilateral facet joint osteoarthritis. There is mild bilat eral neural foraminal stenosis. There is mild central canal stenosis. L5-S1: The disc is bulging. There is severe bilateral facet joint osteoarthritis. There is mild bilat eral neural foraminal stenosis. There is mild central canal stenosis. IMPRESSION: 1. No fracture. 2. Mild lumbar spondylosis. Reviewed, dictated and finalized at location A. ER PARENT
--- NOTE | ~2021-06-02 | CT_ITS ---
EXAMINATION: CT brain wo con DATE: 06/02/2021 02:53 INDICATION: Head injury. TECHNIQUE: Computed tomography (CT) of the head was performed without intravenous contrast. The mA wa s adjusted according to patient size. Iterative reconstruction technique was employed. The dose-lengt h product was 529.67 mGy-cm. COMPARISON: Head CT 12/26/2011 FINDINGS: There is mild motion artifact. There is no intracranial hemorrhage, acute infarction, or ab normal intracranial mass lesion. The ventricles are normal in size. The orbits are normal. There is m inimal mucosal thickening in the paranasal sinuses. The mastoid air cells are normal. IMPRESSION: 1. Normal brain. Sensitivity is mildly decreased by motion artifact. Reviewed, dictated and finalized at location A. ER FEEDER DYED RAW STOCK
--- NOTE | ~2021-06-02 | CT_ITS ---
EXAMINATION: CT pelvis wo con DATE: 06/02/2021 02:53 INDICATION: Buttock pain. Fall. TECHNIQUE: Computed tomography (CT) of the pelvis was performed without intravenous contrast. Automat ed exposure control and iterative reconstruction technique were employed. The dose-length product was 248.87 mGy-cm. COMPARISON: CT abdomen and pelvis 03/13/2021 FINDINGS: There is an umbilical hernia containing fat. There is diverticulosis of the colon without e vidence of diverticulitis. There are no dilated loops of bowel. There are no pathologically enlarged lymph nodes. There is no free intraperitoneal fluid. There is mild osteoarthritis of the hips. There is mild lumbar spondylosis. IMPRESSION: 1. Mild osteoarthritis of the hips. 2. Umbilical hernia containing fat. Reviewed, dictated and finalized at location A. S REPRESENTATIVE GROCERIES
--- NOTE | ~2021-06-02 | CT_ITS ---
EXAMINATION: CT cervical spine wo con DATE: 06/02/2021 02:54 INDICATION: Head injury. Neck injury. TECHNIQUE: Computed tomography (CT) of the cervical spine was performed without intravenous contrast. Automated exposure control and iterative reconstruction technique were employed. The dose-length pro duct was 206.01 mGy-cm. COMPARISON: CT cervical spine 12/26/2011 FINDINGS: There is 4 degrees levocurvature of cervical spine. Vertebral body heights are normal. Ther e is mildly decreased disc height at C5-C6 and severely decreased disc height at C6-C7. The following disc levels are specifically discussed: C2-C3: There is no uncovertebral joint osteoarthritis. There is mild right and severe left facet join t osteoarthritis. There is mild left neural foraminal stenosis. There is no central canal stenosis. C3-C4: There is mild right and severe left uncovertebral joint osteoarthritis. There is moderate righ t and severe left facet joint osteoarthritis. There is moderate left neural foraminal stenosis. There is no central canal stenosis. C4-C5: There is mild right uncovertebral joint osteoarthritis. There is severe right and moderate lef t facet joint osteoarthritis. There is mild right neural foraminal stenosis. There is mild central ca nal stenosis. C5-C6: There is mild bilateral uncovertebral joint osteoarthritis. There is severe right and mild lef t facet joint osteoarthritis. There is mild right neural foraminal stenosis. There is mild central ca nal stenosis. C6-C7: There is severe bilateral uncovertebral joint osteoarthritis. There is severe bilateral facet joint osteoarthritis. There is moderate right and mild left neural foraminal stenosis. There is mild central canal stenosis. C7-T1: There is no uncovertebral joint osteoarthritis. There is severe bilateral facet joint osteoart hritis. There is mild right neural foraminal stenosis. There is no central canal stenosis. IMPRESSION: 1. No fracture. 2. Severe cervical spondylosis. Reviewed, dictated and finalized at location A. SH SANDER
--- NOTE | 2021-06-02 01:40 | ECG_ITS ---
Measurements Intervals [place] Rate: 88 P: 66 CT: 126 QRS: 47 QRSD: 90 T: 67 QT: 369 QTc: 447 Interpretive Statements SINUS RHYTHM COMPARED TO ECG 03/13/2021 07:48:05 SINUS RHYTHM NOW PRESENT Electronically Signed On 06-03-2021 12:13:57 FELT WASHING MACHINE TENDER by Henri Becker M.D.
[2021-06-02 01:45] VITALS: BP 132/71; PULSE 91; RESP 21; TEMP 36.7; O2SAT 95
[2021-06-02 02:08] LABS: Basophils Absolute Auto 0.01 K/mm3 (0.00-0.10); Basophils Percent Auto 0.1 % (0.0-1.0); Eosinophils Absolute Auto 0.09 K/mm3 (0.02-0.50); Hemoglobin 10.1 g/dL (12.0-15.0); Immature Granulocyte Absolute 0.07 K/mm3 (0.00-0.00); Immature Granulocyte Percent A 0.8 % (0.0-0.0); Lymphocytes Percent Auto 16.1 % (18.0-42.0); Mean Corpuscular HGB Conc 31.6 g/dL (32.0-36.0); Mean Corpuscular Volume 85.6 fL (78.0-102.0); Mean Platelet Volume 9.5 fl (9.2-11.8); Monocytes Percent Auto 9.7 % (2.0-11.0); Neutrophils Absolute Auto 6.7 K/mm3 (1.7-7.2); Neutrophils Percent Auto 72.3 % (50.0-70.0); Platelet Count Result 186 K/mm3 (150-420); Red Blood Count 3.74 M/mm3 (4.20-5.40); Red Cell Distribution Width 13.6 % (11.6-14.4); White Blood Count 9.3 K/mm3 (4.8-10.8)
[2021-06-02] MEDS: SODIUM CHLORIDE 0.9% IV 1,000 ML 999 ML IV CONT (02:15)
[2021-06-02] MEDS: MORPHINE SULFATE (*CRX) 2 MG/ML INJ IV PUSH (02:16)
[2021-06-02] MEDS: ONDANSETRON INJ 4 MG/2 ML VIAL IV PUSH (02:16)
[2021-06-02 02:23] LABS: Alanine Aminotransferase 30 U/L (14-59); Albumin Level 2.6 g/dL (3.4-5.0); Alkaline Phosphatase 67 U/L (46-116); Anion Gap 11 mmol/L (8-16); Aspartate Amino Transferase 14 U/L (15-37); Bilirubin,Total 0.3 mg/dL (0.00-1.00); Blood Urea Nitrogen 14 mg/dL (7-18); Calcium 8.6 mg/dL (8.5-10.1); Carbon Dioxide 25 mmol/L (21-32); Chloride 105 mmol/L (98-108); Estimated CRCL calculation 67 ml/min; Estimated Glomerular Filt Rate > 60; Glucose 139 mg/dL (70-99); Osmolality Calculated 294 mOsm/kg (285-295); Potassium 3.2 mmol/L (3.5-5.1); Sodium 141 mmol/L (136-145); Total Protein 6.4 g/dL (6.4-8.2); Troponin I 16.3 ng/L (0.00-60.4)
[2021-06-02 02:24] LABS: Ethanol < 3 mg/dL (0-6)
[2021-06-02 02:26] LABS: Lactic Acid Reflex 2.2 mmol/L (0.4-2.0)
[2021-06-02 02:50] VITALS: BP 128/67; PULSE 87; RESP 19; O2SAT 94
[2021-06-02 03:05] LABS: Add Urine Microscopic? NO; Appearance Urine Clear (Clear); Bilirubin Urine Negative (Negative); Blood Urine Negative (Negative); Color Urine Light Yellow (Yellow); Glucose Urine UA Negative (Negative); Ketones Urine Negative (Negative); Leukocyte Esterase Ur Negative (Negative); Nitrate Urine Negative (Negative); Protein Urine Negative (Negative); Specific Grav Ur 1.025 (1.010-1.020); Urobilinogen Urine 0.2 mg/dL (0.2-1.0); pH Urine 5.5 (5.0-8.0)
[2021-06-02 03:12] LABS: Amphetamine Screen Urine Positive (Negative); Barbiturate Screen Urine Negative (Negative); Benzodiazepines Screen Urine Negative (Negative); Cannabinoid Screen Urine Negative (Negative); Cocaine Screen Urine Negative (Negative); Methadone Screen Urine Negative (Negative); Opiate Screen Urine Positive (Negative); Phencyclidine Screen Urine Negative (Negative)
[2021-06-02 03:30] VITALS: BP 136/75; PULSE 88; RESP 18; O2SAT 94
--- NOTE | 2021-06-02 03:47 | ED.FALL ---
HPI - Fall General Chief Complaint: Fall Stated Complaint: PAIN Time Seen by Provider: 06/02/21 01:27 Source: patient and RN notes reviewed Mode of arrival: wheelchair Limitations: no limitations History of Present Illness complaint: fall Onset (ago): day(s) (2) Fall witnessed: yes, by family Place fall occurred: home Loss of consciousness: none Prolonged down time: no Symptoms prior to fall: none Context: tripped/slipped Location of injury: chest and back Severity: mild Severity scale (1-10): 2 Quality: dull and aching Related Data Home Medications Medication Instructions Recorded Confirmed tiotropium bromide 2.5 2 puff INHALATION DAILY 03/31/19 06/02/21 mcg/actuation mist for inhalation Allergies Allergy/AdvReac Type Severity Reaction Status Date / Time No Known Allergies Allergy Verified 06/02/21 01:38 Review of Systems Review of Systems: All systems reviewed & are unremarkable except as noted in HPI and below PMFSH Past Medical History Medical History Atypical chest pain Cough Elevated glucose level Exposure to COVID-19 virus Family history of other kidney diseases Positive depression screening Sciatica, right side Shortness of breath Tobacco dependence Surgical History Surgical History History of carpal tunnel release History of hysterectomy Hx of cholecystectomy Status post right rotator cuff repair Family History Family History Father Alcoholic Cancer Mother Asthma Diabetes mellitus Hypertension Depression Thyroid disorder Sibling Asthma Thyroid disorder Other Asthma Thyroid disorder Grandparent Cancer Thyroid disorder Grandparent Cancer Daughter Alports syndrome Social History Social History Smoking packs per day: 0.3 Smoking cigarettes per day: 6.0 Years smoked: 46 Smoking pack-years: 13.80 Smoking status: Current every day smoker Tobacco type: cigarettes Second hand tobacco smoke exposure: Yes Alcohol intake: former Substance use: former Substance use type: does not use Additional occupation/education comments: Disabled Gender identity (if verbalized by the patient): Female Spiritual care concerns: No Exam Const: General: no acute distress Nutritional Appearance: obese Orientation/consciousness: patient oriented x3 Limitations: no limitations HENMT: Head: normal to inspection Ears: external ears normal, TM's normal bilaterally and EAC's normal General nose exam: Normal external nose present and Normal nares present Mouth: Yes moist mucous membranes Eyes: Conjunctivae: conjunctivae normal Pupils: Equal, round and reactive pupils present EOM: EOMs intact bilaterally Neck: Neck: normal visual inspection and no lymphadenopathy Chest: Chest palpation & inspection: normal inspection of the chest and abnormal inspection of the chest Resp: Effort & Inspection: normal respiratory effort Auscultation: clear to auscultation bilaterally Cardio: Rate: regular rate Rhythm: regular rhythm GI: GI Palp: Yes Soft to palpation and No Tenderness to palpation present (GI) : General: Yes bladder normal to palpation and Yes no CVA tenderness Back/Spine/Pelvis: Back: no CVA tenderness Other: minimal buttock tenderness. Skin: General skin exam: normal color Rashes: no rashes Neuro: General: patient oriented x3, moves all extremities, no meningeal signs, no focal motor deficits and CN's II-XI intact bilaterally Extrem: General: normal to inspection and no pedal edema Psych: Appearance: grossly normal and well kempt Mental Status: mental status grossly normal Affect: normal affect Attitude: cooperative Thought content: Yes Normal thought content present Course Course Emergency Course: gera shi
[2021-06-02] MEDS: POTASSIUM CHLORIDE 20 MEQ TABLET 40 MEQ PO (04:01)
[2021-06-02] MEDS: KETOROLAC (*BKC) 60 MG/2 ML VIAL IM (04:01)
[2021-06-02 04:40] VITALS: BP 129/68; PULSE 90; RESP 17; TEMP 37.6; O2SAT 93
[2021-06-02 05:05] LABS: Reflex Lactic Acid Yes or No Add Lactic
== END 2021-06-02 04:40 | disposition home or self-care (01) ==
PROVIDERS: Emergency Provider Emergency Medicine; PCP Nurse Practitioner Family
DX: S30.0XXA Contusion of lower back and pelvis, initial encounter (principal); M54.50 Low back pain, unspecified; F17.200 Nicotine dependence, unspecified, uncomplicated
CPT/HCPCS: 36415; 70450; 71045; 72125; 72131; 72192; 80053; 80307; 81003; 83605; 84484; 85025; 93005; 96361; 96372; 96374; 96375; 99284; A9270; J1885; J2270; J2405; J7030

== ENCOUNTER 2021-09-12 08:19 | Outpatient (CLI) | payer MEDICARE, MEDICAID, SELFPAY ==
--- NOTE | ~2021-09-12 | CT_ITS ---
EXAMINATION:CT lung screening DATE: 09/12/2021 08:42 INDICATION: Personal history of tobacco dependence. Current smoker. TECHNIQUE: Computed tomography (CT) of the chest was performed without intravenous contrast. Automate d exposure control and iterative reconstruction technique were employed. The dose-length product (DLP ) was 57.88 mGy-cm. COMPARISON: Chest CT 06/04/2017 FINDINGS: There is mild emphysema. There is mild scarring in paraspinal right lower lobe. There is mi ld atelectasis bilaterally. Calcified left lung nodules are consistent with old granulomatous disease . No pleural effusion. There is ectasia of ascending aorta measuring 4.1 cm. The heart size is normal . There are coronary artery calcifications. No pericardial effusion. There are changes of cholecystec fabiana. There is a suture anchor in right humeral head. There is severe thoracic spondylosis. There is a chronic compression fracture of T5. IMPRESSION: 1. Lung-RADS category 2: Benign appearance or behavior. Continue annual screening with noncontrast lo w-dose chest CT in 12 months. Reviewed, dictated and finalized at location D. IMPRESSION: 1. Lung-RADS category 2: Benign appearance or behavior. Continue annual screeni ng with noncontrast low-dose chest CT in 12 months.
[2021-09-12 13:16] VITALS: PULSE 109; O2SAT 95
[2021-09-12 13:18] VITALS: PULSE 112; O2SAT 96
[2021-09-12 13:21] VITALS: PULSE 108; O2SAT 97
[2021-09-12 13:25] VITALS: PULSE 109; O2SAT 97
--- NOTE | 2021-09-12 14:04 | HOMEO2EVAL ---
Evaluation was performed [place] [facility] [place]: Home Oxygen (O2) Evaluation Start: 09/12/21 13:37 Freq: Status: Active Protocol: RPE Activity Type Activity Date Activity User E-sign Co-sign Detail Recorded Client Recorded Date Recorded By Document 09/12/21 13:16 KRM [id number] 09/12/21 14:04 KRM Document 09/12/21 13:18 KRM [id number] 09/12/21 14:04 KRM Document 09/12/21 13:21 KRM [id number] 09/12/21 14:04 KRM Document 09/12/21 13:25 KRM [id number] 09/12/21 14:04 KRM 09/12/21 09/12/21 09/12/21 13:16 13:18 13:21 Home O2 Evaluation Test Phase Resting Exercise Exercise Oxygen Delivery Room Air Room Air Room Air Pulse Oximetry (90-100 %) 95 96 97 Pulse Rate (60-100 beats/min) 109 H 112 H 108 H Activity Tolerance Good Good Rating of Perceived Dyspnea (PD) +2 Mild, Some +2 Mild, Some Difficulty, Difficulty, Noticeable to Noticeable to the Observer the Observer Ambulation Distance (feet) 1,360 Ambulation Distance (meters) 414.50 Home Oxygen Evaluation Comments no supplemental oxygen needed Treatment Charges 09/12/21 13:25 Home O2 Evaluation Test Phase Resting Oxygen Delivery Room Air Pulse Oximetry (90-100 %) 97 Pulse Rate (60-100 beats/min) 109 H Activity Tolerance Excellent Rating of Perceived Dyspnea (PD) Ambulation Distance (feet) Ambulation Distance (meters) Home Oxygen Evaluation Comments Treatment Charges O2 Evaluation - Outpatient
--- NOTE | 2021-09-24 14:49 | P.PCNPFT_ITS ---
PFT Procedure Performed PFT Procedure Performed Spirometry with Pre/Post Bronchodilator Plethysmography (Lung Vol) PFT Interpretation DOS: 09/12/2021 REQUESTING: Salvador Ahn APRN REASON FOR TESTING: COPD PULMONARY FUNCTION TESTS Results are consistent with good effort however the patient could not exhale for 6 seconds and could not hold his breath for 6 seconds so DLCO was not obtained. Flow volume loops are not reproducible. Spirometry: The pre-bronchodilator FEV1 is 1.8 L, 54% predicted, moderately decreased. The pre-bronchodilator FVC is 1.74 L, 64% predicted. The FEV1/FVC ratio is 68%, decreased consistent with airflow obstruction. After bronchodilator administration, there is a 19% increase in FVC, 2.08 L which is 77%. There is a 16% increase in FEV1, 1.37 L, 62% predicted. The FVC increases by more than 200 ml. This is a significant response. Lung volumes: Total lung capacity is normal 98% predicted, 4.40 L. The residual volume is moderately increased 157% predicted, 2 point 6 6 L. RV/TLC ratio is increased to 159% consistent with air trapping. The slow vital cap acity is 64% which is consistent with the forced vital capacity in spirometry. Increased airway resistance 573%. ERV is 0.33 L reduced. Diffusion: DLCO was not obtained because the patient could not hold breath for the required 6 seconds. Flow volume loop: Expiratory limb showed mild scooping however the flow volume loops were not consistently reproducible. IMPRESSION: This spirometry is consistent with moderate obstructive airflow obstruction with good response to bronchodilator and moderate air trapping. Susan Adhikari MD
== END 2021-09-12 08:20 | disposition home or self-care (01) ==
PROVIDERS: PCP Family Medicine; Visit Provider Nurse Practitioner Family
DX: Z12.2 Encounter for screening for malignant neoplasm of respiratory organs (principal); Z87.891 Personal history of nicotine dependence
CPT/HCPCS: 71271; 94060; 94618; 94726; 94729

== ENCOUNTER 2021-09-16 08:03 | Outpatient (CLI) | payer MEDICARE, MEDICAID, SELFPAY ==
--- NOTE | ~2021-09-16 | XR_ITS ---
MODIFIED ESOPHAGRAM HISTORY: Dysphagia. TECHNIQUE: Modified barium esophagram was performed on 09/16/2021. I administered fluoroscopy and perf ormed the exam with speech pathologist. Patient was seated for lateral fluoroscopic imaging for isidro stion of thin liquids, pudding, solids and quantified amounts, followed by thin liquids in uncontroll ed amounts. This was recorded on tape. A single fluoroscopic spot image was also recorded. The DAP fo r this procedure was 2.464 Gycm2. The amount of fluoroscopy time used during this procedure was 3.3 m inutes. FINDINGS: Oral stage: Adequate function. Pharyngeal stage: Reduced laryngeal elevation and tongue base retraction with vallecular residue with all consistencies requiring multiple swallows for clearance. Intermittent laryngeal penetration of s mall amounts of contrast with thin liquids which was not observed with chin tuck. No aspiration. Cervical/esophageal stage: Adequate function. IMPRESSION: Pharyngeal dysphagia as detailed above including intermittent mild laryngeal penetration without aspiration. Please correlate with speech pathologist findings and specific feeding recommend ations. Reviewed, dictated and finalized at location B. IMPRESSION: Pharyngeal dysphagia as detailed above including intermittent mild laryngeal penetration without aspiration. Please correlate with speech patholo gist findings and specific feeding recommendations.
--- NOTE | 2021-09-16 10:47 | STOPEVAL ---
Thank you for referring Mercy Martinez to [facility].? The patient was seen for a modified barium swallow study. Referring Physician Date Admitting Provider: Attending Provider: Salvador Ahn APRN Referring Provider: MODIFIED BARIUM SWALLOW STUDY *ST Outpatient Evaluation Start: 09/16/21 10:11 Freq: Status: Active Protocol: Document 09/16/21 08:30 MJB (Rec: 09/16/21 10:46 MJB [id number]) Therapy Assessment Status Assessment Status Assessment Status Evaluation Outpatient Past Medical History Past Medical History Source of Past Medical History Patient Neurological History Hx Neurological Disorders No Significant History Cardiovascular History Hx Hypertension Yes Respiratory History Hx Chronic Obstructive Pulmonary Disease Yes (COPD) Gastrointestinal History Hx Cholecystectomy Yes Genitourinary History Hx Genitourinary Disorders No Significant History Musculoskeletal History Hx Orthopedic Surgery Yes: right shoulder Hematological History Hx Hematological Disorders No Significant History Endocrine History Hx Endocrine Disorders No Significant History HEENT History Hx Dental Problems Yes: will be getting dentures soon Integumentary History Hx Skin Disorders No Significant History Reproductive History Hx Post Menopausal Yes Psychosocial History Hx Anxiety Yes Hx Depression Yes Pain History History of Any Previous or Ongoing No Significant History Instance of Pain Anesthesia History Hx Anesthesia Reactions No Significant History Evaluation Information Problem Subjective Information Patient reported to recently Query Text:As Reported By Patient/ start having swallowing Family difficulties with solid foods within the past 6 months. She reported that she has a cough/ choke occurrence 1x per week. She was just recently diagnosed with emphysema and has a diagnosis of COPD. Pain Assessment Timing of Pain Assessment Timing of Pain Assessment Assessment Self Report Self Report Pain Level 0 Pain Score Pain Score 0: Self Report Modified Barium Swallow Evaluation Recent Swallowing History Reports Dysphagia Yes Onset of Dysphagia 6 months ago History of Dysphagia No Other Related History COPD, shortness of breath Reported Difficult Consistencies Solids Intake Method Prior to Swallow Oral Evaluation Diet Prior to
== END 2021-09-16 08:04 | disposition home or self-care (01) ==
LOC: CHSIMG 08:04
PROVIDERS: PCP Family Medicine; Visit Provider Nurse Practitioner Family
DX: T17.308A Unspecified foreign body in larynx causing other injury, initial encounter (principal)
CPT/HCPCS: 92611

== ENCOUNTER 2021-10-09 11:33 | Outpatient (CLI) | payer MEDICARE, MEDICAID, SELFPAY ==
--- NOTE | ~2021-10-09 | XR_ITS ---
XR chest 2V 10/09/2021 11:55 Indication: Chronic obstructive pulmonary disease. Procedure: PA and lateral views of the chest Comparison: Comparison to multiple prior studies sequentially, with oldest reviewed study dated 05/21. Findings: Heart size normal. No focal air space disease, pulmonary edema, pleural effusion or suspect ed pneumothorax. Healed right seventh rib fracture. No acute osseous abnormality. Impression: 1: No acute cardiopulmonary disease. Reviewed, dictated and finalized at location A. Impression: 1: No acute cardiopulmonary disease.
[2021-10-09 11:55] LABS: Hematocrit 35.7 % (35.0-49.0); Hemoglobin 11.6 g/dL (12.0-15.0); Mean Corpuscular HGB Conc 32.5 g/dL (32.0-36.0); Mean Corpuscular Volume 83.2 fL (78.0-102.0); Platelet Count Result 149 K/mm3 (150-420); Red Blood Count 4.29 M/mm3 (4.20-5.40); Red Cell Distribution Width 13.1 % (11.6-14.4); White Blood Count 5.9 K/mm3 (4.8-10.8)
[2021-10-09 12:29] LABS: Alanine Aminotransferase 19 U/L (14-59); Albumin Level 3.3 g/dL (3.4-5.0); Alkaline Phosphatase 110 U/L (46-116); Anion Gap 11 mmol/L (8-16); Aspartate Amino Transferase 20 U/L (15-37); Bilirubin,Total 0.5 mg/dL (0.00-1.00); Blood Urea Nitrogen 10 mg/dL (7-18); Calcium 9.3 mg/dL (8.5-10.1); Carbon Dioxide 27 mmol/L (21-32); Chloride 103 mmol/L (98-108); Estimated Glomerular Filt Rate > 60; Glucose 87 mg/dL (70-99); NT Pro B Type Natriuretic Pept 5171 pg/mL (0-125); Osmolality Calculated 290 mOsm/kg (285-295); Potassium 3.7 mmol/L (3.5-5.1); Sodium 141 mmol/L (136-145); Total Protein 7.1 g/dL (6.4-8.2); Troponin I 20.6 ng/L (0.00-60.4)
== END 2021-10-09 11:34 | disposition home or self-care (01) ==
LOC: CHSLAB 11:34
PROVIDERS: PCP Family Medicine; Visit Provider Family Medicine
DX: J44.9 Chronic obstructive pulmonary disease, unspecified (principal); R06.00 Dyspnea, unspecified
CPT/HCPCS: 36415; 71046; 80053; 83880; 84484; 85027

== ENCOUNTER 2021-10-17 14:17 | Outpatient (CLI) | payer MEDICARE, MEDICAID, SELFPAY ==
--- NOTE | 2021-10-17 14:21 | ECHO_ITS ---
Patient Info Name: Mercy Martinez Age: 61 years : 1960 Gender: Female Ht: 62 in Wt: 112 lbs BSA: 1.49 m2 HR: 109 bpm BP: 157 / 73 mmHg Technical Quality: Fair Exam Date: 10/17/2021 2:14 PM Exam Location: [facility] Patient Status: Outpatient Admit Date: 10/17/2021 Staff Ordering Physician: Sunil Grey DO Dewaxer: Kye Edmond RDCS, RT Attending Provider: Sunil Grey DO Referring Physician: Matilda ROBERTSON; Exam Type: CA echo doppler color flow Study Info Indications I10 - Essential (primary) hypertension Complete two-dimensional, color flow and Doppler transthoracic echocardiogram is performed. Strain analysis performed. Summary 1. Complete two-dimensional, color flow and Doppler transthoracic echocardiogram is performed. 2. Left ventricular chamber dimension is normal. 3. Left ventricular systolic function is normal, estimated at 55-60%. 4. The left ventricular diastolic function is grade I diastolic dysfunction. 5. E/e' 8 is minimally elevated. 6. Global longitudinal strain is abnormal at -14.8%. 7. Left atrial chamber dimension is mildly enlarged. 8. Right atrial chamber dimension is mildly enlarged. 9. The mitral valve has moderately calcified annulus. 10. There is mild tricuspid valve regurgitation. 11. Mild pulmonary hypertension, estimated pulmonary arterial systolic pressure is 46 mmHg. Left Ventricle E/e' 8 is minimally elevated. Global longitudinal strain is abnormal at -14.8%. Left ventricular chamber dimension is normal. Left ventricular systolic function is normal, estimated at 55-60%. The left ventricular diastolic function is grade I diastolic dysfunction. Right Ventricle Right ventricular systolic function is normal and with normal TAPSE 2.4 cm. Right ventricular chamber dimension is normal. Left Atria Left atrial chamber dimension is mildly enlarged. Right Atria Right atrial chamber dimension is mildly enlarged. Aortic Valve The aortic valve is trileaflet. There is no aortic valve stenosis. There is no aortic valve regurgitation. Pulmonic Valve There is no pulmonic regurgitation. Mitral Valve The mitral valve has moderately calcified annulus. There is no mitral valve regurgitation. Tricuspid Valve There is mild tricuspid valve regurgitation. Mild pulmonary hypertension, estimated pulmonary arterial systolic pressure is 46 mmHg. Pericardium/Pleural There is no pericardial effusion. Inferior Vena Cava Normal inferior vena cava with >50% collapse upon inspiration consistent with normal right atrial pressure, 5 mmHg. Aorta The aortic root size at the sinus of Valsalva is normal. Left Ventricular Outflow Tract Name Value Normal LVOT 2D LVOT Diameter 2.0 cm LVOT Doppler LVOT Peak Velocity 111 cm/s LVOT Peak Gradient 5 mmHg LVOT Mean Gradient 2 mmHg LVOT VTI 17 cm LVOT VTI/AV VTI Ratio 0.7 LVOT Stroke Volume 52 ml Mitral Valve
== END 2021-10-17 14:18 | disposition home or self-care (01) ==
LOC: CHSIMG 14:18
PROVIDERS: PCP Family Medicine; Visit Provider Family Medicine
DX: R79.89 Other specified abnormal findings of blood chemistry (principal); I10 Essential (primary) hypertension
CPT/HCPCS: 93306

== ENCOUNTER 2021-11-17 16:07 | Outpatient (CLI) | payer MEDICARE, MEDICAID, SELFPAY ==
--- NOTE | ~2021-11-17 | CT_ITS ---
EXAMINATION: CT abdomen pelvis w con DATE: 11/17/2021 17:04 INDICATION: abd pain and left pelvic pain and constipation TECHNIQUE: Computed tomography (CT) of the abdomen and pelvis was performed with 100 mL Omnipaque-350 intravenous contrast. Automated exposure control and iterative reconstruction technique were employe d. The dose-length product was 192.96 mGy-cm. COMPARISON: 03/13/2021. FINDINGS: Lower thorax: Lingular and right posterior atelectasis/scar. Coronary artery calcification. Liver: Normal. Biliary/Gallbladder: Gallbladder is absent. No bile duct dilation. Pancreas: No mass or duct dilation. Spleen: Normal. Adrenals:No mass. Kidneys: Punctate left midpole nonobstructing calculus. Bilateral renal cysts and hypodensities that are too small to characterize but statistically likely represent cysts. No suspicious mass or hydrone phrosis. GI tract: No small or large bowel dilation. Normal appendix. Severe diverticulosis. Short segment wal l thickening in the distal sigmoid, with mild surrounding inflammatory change. Mesentery/Peritoneum: No ascites, mass, or free air. Retroperitoneum: No mass. Atherosclerotic abdominal aortic and/or arterial calcifications. Pelvis: Pelvic organs are within normal limits. Soft Tissues: Uncomplicated fat-containing umbilical hernia. Bones: No acute osseous finding. IMPRESSION: Acute uncomplicated distal sigmoid diverticulitis. Reviewed, dictated and finalized at location K.
[2021-11-17 16:28] LABS: Estimated Glomerular Filt Rate > 60
[2021-11-17 16:45] LABS: Basophils Absolute Auto 0.03 K/mm3 (0.00-0.10); Basophils Percent Auto 0.5 % (0.0-1.0); Eosinophils Absolute Auto 0.09 K/mm3 (0.02-0.50); Eosinophils Percent Auto 1.6 % (1.0-6.0); Hematocrit 33.9 % (35.0-49.0); Hemoglobin 10.7 g/dL (12.0-15.0); Immature Granulocyte Absolute 0.01 K/mm3 (0.00-0.00); Immature Granulocyte Percent A 0.2 % (0.0-0.0); Lymphocytes Percent Auto 32.1 % (18.0-42.0); Mean Corpuscular HGB Conc 31.6 g/dL (32.0-36.0); Mean Corpuscular Hemoglobin 26.8 pg (27.0-31.0); Mean Corpuscular Volume 84.8 fL (78.0-102.0); Mean Platelet Volume 10.4 fl (9.2-11.8); Monocytes Absolute Auto 0.63 K/mm3 (0.10-0.90); Monocytes Percent Auto 11.2 % (2.0-11.0); Neutrophils Absolute Auto 3.1 K/mm3 (1.7-7.2); Neutrophils Percent Auto 54.4 % (50.0-70.0); Platelet Count Result 178 K/mm3 (150-420); Red Cell Distribution Width 13.2 % (11.6-14.4); White Blood Count 5.6 K/mm3 (4.8-10.8)
[2021-11-17 16:55] LABS: Alanine Aminotransferase 17 U/L (14-59); Albumin Level 2.9 g/dL (3.4-5.0); Alkaline Phosphatase 107 U/L (46-116); Amylase 41 U/L (25-115); Anion Gap 8 mmol/L (8-16); Aspartate Amino Transferase 14 U/L (15-37); Bilirubin,Total 0.5 mg/dL (0.00-1.00); Blood Urea Nitrogen 13 mg/dL (7-18); Calcium 9.2 mg/dL (8.5-10.1); Carbon Dioxide 27 mmol/L (21-32); Chloride 103 mmol/L (98-108); Estimated Glomerular Filt Rate > 60; Glucose 165 mg/dL (70-99); Lipase 96 U/L (73-393); Osmolality Calculated 290 mOsm/kg (285-295); Potassium 3.4 mmol/L (3.5-5.1); Sodium 138 mmol/L (136-145); Total Protein 6.9 g/dL (6.4-8.2)
== END 2021-11-17 16:08 | disposition home or self-care (01) ==
LOC: CHSLAB 16:10
PROVIDERS: PCP Nurse Practitioner Family; Visit Provider Nurse Practitioner Family
DX: R10.9 Unspecified abdominal pain (principal); R10.2 Pelvic and perineal pain
CPT/HCPCS: 74177; 80053; 82150; 83690; 85025; Q9967

== ENCOUNTER 2022-01-05 06:46 | Emergency (ER) | payer MEDICARE, MEDICAID, SELFPAY ==
--- NOTE | ~2022-01-05 | CT_ITS ---
EXAMINATION: CT abdomen pelvis wo con DATE: 01/05/2022 07:26 INDICATION: Left flank pain. TECHNIQUE: Computed tomography (CT) of the abdomen and pelvis was performed without intravenous contr ast. Automated exposure control and iterative reconstruction technique were employed. The dose-length product was 193.68 mGy-cm. COMPARISON: CT abdomen and pelvis 11/17/2021 FINDINGS: The visualized portions of the lung bases demonstrate mild atelectasis. No pleural effusion . Cardiomegaly is noted. There are coronary artery calcifications. No pericardial effusion. The liver is normal. There are changes of cholecystectomy. The spleen, pancreas, adrenal glands, and right kid renée are normal. There is mild left hydronephrosis and hydroureter. There is a 2 mm stone at left uret erovesicular junction. There is a 2.7 cm cyst in left kidney. There is diverticulosis of the colon wi thout evidence of diverticulitis. There are no dilated loops of bowel. The appendix is normal. There are no pathologically enlarged lymph nodes. There is no free intraperitoneal fluid. There is a suprau mbilical ventral hernia containing fat. There is mild lumbar spondylosis. IMPRESSION: 1. 2 mm stone at left ureterovesicular junction with mild left hydronephrosis and hydroureter. 2. Supraumbilical ventral hernia containing fat. Reviewed, dictated and finalized at location A. IMPRESSION: 1. 2 mm stone at left ureterovesicular junction with mild left hydronephrosis a nd hydroureter. 2. Supraumbilical ventral hernia containing fat.
[2022-01-05 06:50] VITALS: BP 188/90; PULSE 88; RESP 22; TEMP 36.7; O2SAT 96
--- NOTE | 2022-01-05 06:59 | ED.ABDPAIN ---
HPI - Abdominal Pain General Chief Complaint: Abdominal Pain Stated Complaint: Lower back pain Time Seen by Provider: 01/05/22 06:53 Source: patient Mode of arrival: ambulatory History of Present Illness HPI narrative: 61-year-old female with a history of hypertension, COPD, GERD, chronic low back pain with sciatica on the right side, presents to the ER with a 3 hour history of -- left flank pain. no radiation of the pain. No exacerbating or relieving factors. -- multiple episodes of nausea and vomiting no fever MD elicited complaint: flank pain Pertinent past history: constipation Onset (ago): hour(s) ( Started 3 hours ago) Pain Consistency: constant Location: L flank Severity: severe Pain scale (0-10): 10 Quality: aching Radiation: none Migration to: no migration Exacerbating factors: nothing Relieving factors: nothing Associated symptoms: nausea and vomiting Related Data Allergies Allergy/AdvReac Type Severity Reaction Status Date / Time No Known Allergies Allergy Verified 11/17/21 13:59 Review of Systems Review of Systems: All systems reviewed & are unremarkable except as noted in HPI and below Constitutional: Constitutional: Reports as per HPI and Reports no additional constitutional complaints Eyes: Eyes: Reports as per HPI and Reports no additional eye complaints ENT: Reports system reviewed and no additional complaints, except as documented and Reports as per HPI Cardiovascular: Cardiovascular: Reports as per HPI and Reports no additional cardiovascular complaints Respiratory: Respiratory: Reports as per HPI and Reports no additional respiratory complaints Gastrointestinal: Gastrointestinal: Reports as per HPI, Reports no additional gastrointestinal complaints, Reports abdominal pain, Reports nausea and Reports vomiting Genitourinary: Genitourinary: Reports no additional female genitourinary complaints and Reports as per HPI Musculoskeletal: Musculoskeletal: Reports no additional musculoskeletal complaints and Reports as per HPI Comments: chronic low back pain Integumentary/Breasts: Skin/Breast: Reports system reviewed and no additional complaints, except as docu Neurologic: Reports system reviewed and no additional complaints, except as documented and Reports as per HPI Psychiatric: Psychiatric: Reports no additional psychiatric complaints and Reports as per HPI Endocrine: Endocrine: Reports no additional endocrine complaints and Reports as per HPI Hematologic/Lymphatic: Hematologic/Lymphatic: Reports no additional hematologic/lymphatic complaints and Reports as per HPI Allergic/Immunologic: Allergic/Immunologic: Reports no additional allergic/immunologic complaints and Reports as per HPI PMF Past Medical History Medical History Atypical chest pain Cough Elevated glucose level Exposure to COVID-19 virus Family history of other kidney diseases Positive depression screening Sciatica, right side Shortness of breath Tobacco dependence Surgical History Surgical History History of carpal tunnel release History of hysterectomy Hx of cholecystectomy Status post right rotator cuff repair Family History Family History Father Alcoholic Cancer Mother Asthma Diabetes mellitus Hypertension Depression Thyroid disorder Sibling Asthma Thyroid disorder Other Asthma Thyroid disorder Grandparent Cancer Thyroid disorder Grandparent Cancer Daughter Alports syndrome Social History Social History Smoking packs per day: 0.3 Smoking cigarettes per day: 6.0 Years smoked: 46 Smoking pack-years: 13.80 Smoking status: Current every day smoker Tobacco type: cigarettes Second hand tobacco smoke exposure: Yes Alcohol intake: former Substance use:
[2022-01-05] MEDS: SODIUM CHLORIDE 0.9% IV 1,000 ML 999 ML IV CONT (07:02)
[2022-01-05] MEDS: ONDANSETRON INJ 4 MG/2 ML VIAL IV PUSH (07:04)
[2022-01-05] MEDS: MORPHINE SULFATE (*CRX) 4 MG/ML INJ 2 MG IV PUSH (07:05)
[2022-01-05] MEDS: PANTOPRAZOLE SODIUM IV 40 MG VIAL IV PUSH (07:07)
[2022-01-05 07:10] LABS: Basophils Absolute Auto 0.04 K/mm3 (0.00-0.10); Basophils Percent Auto 0.6 % (0.0-1.0); Eosinophils Absolute Auto 0.16 K/mm3 (0.02-0.50); Eosinophils Percent Auto 2.3 % (1.0-6.0); Hematocrit 33.9 % (35.0-49.0); Hemoglobin 10.8 g/dL (12.0-15.0); Immature Granulocyte Absolute 0.02 K/mm3 (0.00-0.00); Immature Granulocyte Percent A 0.3 % (0.0-0.0); Lymphocytes Absolute Auto 2.31 K/mm3 (1.10-4.50); Lymphocytes Percent Auto 33.3 % (18.0-42.0); Mean Corpuscular HGB Conc 31.9 g/dL (32.0-36.0); Mean Corpuscular Hemoglobin 26.4 pg (27.0-31.0); Mean Corpuscular Volume 82.9 fL (78.0-102.0); Mean Platelet Volume 10.3 fl (9.2-11.8); Monocytes Absolute Auto 0.77 K/mm3 (0.10-0.90); Monocytes Percent Auto 11.1 % (2.0-11.0); Neutrophils Absolute Auto 3.6 K/mm3 (1.7-7.2); Neutrophils Percent Auto 52.4 % (50.0-70.0); Platelet Count Result 158 K/mm3 (150-420); Red Blood Count 4.09 M/mm3 (4.20-5.40); White Blood Count 6.9 K/mm3 (4.8-10.8)
[2022-01-05 07:24] LABS: Alanine Aminotransferase 17 U/L (14-59); Albumin Level 3.1 g/dL (3.4-5.0); Alkaline Phosphatase 102 U/L (46-116); Anion Gap 8 mmol/L (8-16); Aspartate Amino Transferase 10 U/L (15-37); Bilirubin,Total 0.3 mg/dL (0.00-1.00); Blood Urea Nitrogen 13 mg/dL (7-18); Calcium 9.1 mg/dL (8.5-10.1); Carbon Dioxide 27 mmol/L (21-32); Chloride 105 mmol/L (98-108); Estimated CRCL calculation 79 ml/min; Estimated Glomerular Filt Rate > 60; Glucose 130 mg/dL (70-99); Lipase 166 U/L (73-393); Osmolality Calculated 292 mOsm/kg (285-295); Potassium 3.4 mmol/L (3.5-5.1); Sodium 140 mmol/L (136-145); Total Protein 6.7 g/dL (6.4-8.2)
[2022-01-05] MEDS: KETOROLAC 15 MG/ML VIAL (*BKC) IV PUSH (07:26)
[2022-01-05 07:30] LABS: Lactic Acid Reflex 1.1 mmol/L (0.4-2.0)
[2022-01-05 08:28] LABS: Appearance Urine Clear (Clear); Bilirubin Urine Negative (Negative); Blood Urine 3+ (Negative); Glucose Urine UA Trace (Negative); Ketones Urine Negative (Negative); Leukocyte Esterase Ur Trace LEU/UL (Negative); Nitrate Urine Positive (Negative); Protein Urine 1+ (Negative)
--- NOTE | 2022-01-05 08:29 | PC.NURSE ---
rn called pharmacy to cancel prescriptions, pharmacy is not open at this time, left message.
[2022-01-05 08:34] VITALS: BP 136/74; PULSE 82; RESP 16; TEMP 37.4; O2SAT 91
[2022-01-05 08:35] LABS: Add Urine Microscopic? YES; Color Urine Dark Orange (Yellow); RBC Urine 21-50 /hpf (0-2); WBC Urine 0-3 /hpf (0-3)
[2022-01-05 08:36] LABS: Bacteria Urine Trace /hpf; Squamous Epithelial Cell Urine Few /hpf (Few)
--- NOTE | 2022-01-07 12:17 | PC.NURSE ---
URINE CULTURE FINAL RESULT, NO GROWTH
== END 2022-01-05 08:41 | disposition home or self-care (01) ==
PROVIDERS: Emergency Medicine; Emergency Provider Internal Medicine Critical Care Medicine; PCP Nurse Practitioner Family
DX: N20.0 Calculus of kidney (principal); F17.200 Nicotine dependence, unspecified, uncomplicated
CPT/HCPCS: 36415; 74176; 80053; 81001; 82365; 83605; 83690; 85025; 87086; 88300; 96361; 96374; 96375; 99284; C9113; J1885; J2270; J2405; J7030

== ENCOUNTER 2022-03-17 15:05 | Outpatient (CLI) | payer MEDICARE, MEDICAID, SELFPAY ==
[2022-03-17 15:23] LABS: Hematocrit 36.5 % (35.0-49.0); Hemoglobin 11.6 g/dL (12.0-15.0); Mean Corpuscular HGB Conc 31.8 g/dL (32.0-36.0); Mean Corpuscular Hemoglobin 26.2 pg (27.0-31.0); Mean Corpuscular Volume 82.6 fL (78.0-102.0); Platelet Count Result 189 K/mm3 (150-420); Red Blood Count 4.42 M/mm3 (4.20-5.40); Red Cell Distribution Width 12.9 % (11.6-14.4); White Blood Count 6.2 K/mm3 (4.8-10.8)
[2022-03-17 16:28] LABS: Alanine Aminotransferase 17 U/L (14-59); Albumin Level 3.2 g/dL (3.4-5.0); Alkaline Phosphatase 118 U/L (46-116); Anion Gap 6 mmol/L (8-16); Aspartate Amino Transferase 15 U/L (15-37); Bilirubin,Total 0.4 mg/dL (0.00-1.00); Blood Urea Nitrogen 11 mg/dL (7-18); Calcium 8.7 mg/dL (8.5-10.1); Carbon Dioxide 30 mmol/L (21-32); Chloride 103 mmol/L (98-108); Estimated Glomerular Filt Rate > 60; Ferritin 152 ng/mL (8-252); Folic Acid 12.1 ng/mL (8.6->20); Glucose 110 mg/dL (70-99); Osmolality Calculated 288 mOsm/kg (285-295); Potassium 4.1 mmol/L (3.5-5.1); Sodium 139 mmol/L (136-145); Vitamin B12 293 pg/mL (193-986)
[2022-03-17 16:32] LABS: Thyroid Stimulating Hormone < 0.01 uIU/mL (0.36-3.74)
[2022-03-18 13:10] LABS: Iron 66 ug/dL (50-170); Percent Iron Saturation 27 % (12-57)
== END 2022-03-17 15:06 | disposition home or self-care (01) ==
LOC: CHSLAB 15:08
PROVIDERS: PCP Nurse Practitioner Family; Visit Provider Nurse Practitioner Family
DX: D64.9 Anemia, unspecified (principal)
CPT/HCPCS: 36415; 80053; 82607; 82728; 82746; 83540; 83550; 84443; 85027

== ENCOUNTER 2022-03-25 12:17 | Outpatient (CLI) | payer MEDICARE, MEDICAID, SELFPAY ==
[2022-03-25 13:39] LABS: Free T4 Free Thyroxine 4.31 ng/dL (0.76-1.46)
[2022-03-25 13:44] LABS: Thyroid Stimulating Hormone < 0.01 uIU/mL (0.36-3.74)
[2022-03-25 13:55] LABS: HIV 1 P24 AG Negative (Negative); HIV 1/2 AB Negative (Negative)
[2022-03-27 13:00] LABS: Hepatitis C Signal to Cutoff 0.04 ratio (<1.00); Hepatitis C Virus Antibody Nonreactive (Nonreactive)
[2022-03-27 16:33] LABS: RPR Screen Non-Reactive (Non-Reactive)
[2022-03-28 21:10] LABS: HSV 1 IgM Screen Negative (Negative); HSV 2 IgM Screen Negative (Negative)
== END 2022-03-25 12:18 | disposition home or self-care (01) ==
LOC: CHSLAB 12:19
PROVIDERS: PCP Family Medicine; Visit Provider Nurse Practitioner Family
DX: E05.90 Thyrotoxicosis, unspecified without thyrotoxic crisis or storm (principal); E03.9 Hypothyroidism, unspecified; Z11.4 Encounter for screening for human immunodeficiency virus [HIV]; Z20.2 Contact with and (suspected) exposure to infections with a predominantly sexual mode of transmission
CPT/HCPCS: 36415; 84439; 84443; 84480; 86592; 86695; 86696; 86703; 86803; 87491; 87591; 87661

== ENCOUNTER 2022-03-27 20:49 | Emergency (ER) | payer MEDICARE, MEDICAID, SELFPAY ==
[2022-03-27 20:55] VITALS: BP 157/91; PULSE 114; RESP 20; TEMP 36.4; O2SAT 100
--- NOTE | 2022-03-27 20:59 | ED.ABDPAIN ---
HPI - Abdominal Pain General Chief Complaint: Abdominal Pain Stated Complaint: vomiting, weak, dry mouth Time Seen by Provider: 03/27/22 20:55 Source: patient Mode of arrival: ambulatory Limitations: no limitations History of Present Illness HPI narrative: 61-year-old female, smoker with a history of hypertension, arthritis, anxiety, coronary artery disease, kidney stone, GERD, COPD presents to the ER an 18 hour history of -- nausea with multiple episodes vomiting. vomitus is clear. patient states that she had 20-30 episodes of vomiting -- multiple episodes of diarrhea. multiple episodes of diarrhea. -- abdominal pain no fever. No recent antibiotic use. MD elicited complaint: abdominal pain Pertinent past history: gastritis and kidney stones Onset (ago): hour(s) ( Started at 3:00 a.m. this morning) Pain Consistency: constant Location: diffuse Severity: severe Quality: cramping Radiation: none Migration to: no migration Exacerbating factors: nothing Relieving factors: nothing Associated symptoms: nausea, vomiting and diarrhea Related Data Allergies Allergy/AdvReac Type Severity Reaction Status Date / Time No Known Allergies Allergy Verified 03/25/22 11:52 Review of Systems Review of Systems: All systems reviewed & are unremarkable except as noted in HPI and below Constitutional: Constitutional: Reports as per HPI and Reports no additional constitutional complaints Eyes: Eyes: Reports as per HPI and Reports no additional eye complaints ENT: Reports system reviewed and no additional complaints, except as documented and Reports as per HPI Cardiovascular: Cardiovascular: Reports as per HPI and Reports no additional cardiovascular complaints Respiratory: Respiratory: Reports as per HPI, Reports no additional respiratory complaints, Reports cough, Reports dyspnea and Reports wheezing Comments: chronic cough, wheezing and shortness of breath. Gastrointestinal: Gastrointestinal: Reports abdominal pain, Reports diarrhea, Reports nausea and Reports vomiting Genitourinary: Genitourinary: Reports no additional female genitourinary complaints and Reports as per HPI Comments: Decreased urine output Musculoskeletal: Musculoskeletal: Reports no additional musculoskeletal complaints Integumentary/Breasts: Skin/Breast: Reports system reviewed and no additional complaints, except as docu and Reports as per HPI Neurologic: Reports system reviewed and no additional complaints, except as documented and Reports as per HPI Psychiatric: Psychiatric: Reports no additional psychiatric complaints and Reports as per HPI Endocrine: Endocrine: Reports no additional endocrine complaints and Reports as per HPI Hematologic/Lymphatic: Hematologic/Lymphatic: Reports no additional hematologic/lymphatic complaints and Reports as per HPI Allergic/Immunologic: Allergic/Immunologic: Reports no additional allergic/immunologic complaints and Reports as per HPI [facility] Past Medical History Medical History Anemia Atypical chest pain Cough Elevated glucose level Exposure to COVID-19 virus Family history of other kidney diseases Positive depression screening Sciatica, right side Shortness of breath Tobacco dependence Surgical History Surgical History History of carpal tunnel release History of hysterectomy Hx of cholecystectomy Status post right rotator cuff repair Family History Family History Father Alcoholic Cancer Mother Asthma Diabetes mellitus Hypertension Depression Thyroid disorder Sibling Asthma Thyroid disorder Other Asthma Thyroid disorder Grandparent Cancer Thyroid disorder Grandparent Cancer Daughter Alports syndrome Social History Social History Smoking packs per day: 0
[2022-03-27 21:17] LABS: Basophils Absolute Auto 0.02 K/mm3 (0.00-0.10); Basophils Percent Auto 0.2 % (0.0-1.0); Eosinophils Percent Auto 1.1 % (1.0-6.0); Hematocrit 36.7 % (35.0-49.0); Hemoglobin 11.7 g/dL (12.0-15.0); Immature Granulocyte Absolute 0.02 K/mm3 (0.00-0.00); Immature Granulocyte Percent A 0.2 % (0.0-0.0); Lymphocytes Absolute Auto 1.55 K/mm3 (1.10-4.50); Lymphocytes Percent Auto 16.6 % (18.0-42.0); Mean Corpuscular HGB Conc 31.9 g/dL (32.0-36.0); Mean Corpuscular Hemoglobin 26.7 pg (27.0-31.0); Mean Corpuscular Volume 83.8 fL (78.0-102.0); Mean Platelet Volume 10.2 fl (9.2-11.8); Monocytes Absolute Auto 0.74 K/mm3 (0.10-0.90); Monocytes Percent Auto 7.9 % (2.0-11.0); Neutrophils Absolute Auto 6.9 K/mm3 (1.7-7.2); Platelet Count Result 160 K/mm3 (150-420); Red Blood Count 4.38 M/mm3 (4.20-5.40); Red Cell Distribution Width 13.3 % (11.6-14.4); White Blood Count 9.3 K/mm3 (4.8-10.8)
[2022-03-27] MEDS: LACTATED RINGERS 1,000 ML 999 ML IV CONT ×2 (21:17→21:51)
[2022-03-27] MEDS: ONDANSETRON INJ 4 MG/2 ML VIAL IV PUSH (21:17)
[2022-03-27 21:25] LABS: Add Urine Microscopic? YES; Appearance Urine Clear (Clear); Bilirubin Urine Negative (Negative); Blood Urine Trace-Intact (Negative); Color Urine Yellow (Yellow); Glucose Urine UA Negative (Negative); Ketones Urine Negative (Negative); Leukocyte Esterase Ur 1+ LEU/UL (Negative); Nitrate Urine Negative (Negative); Protein Urine Negative (Negative); Specific Grav Ur >= 1.030 (1.010-1.020); Urobilinogen Urine 0.2 mg/dL (0.2-1.0)
[2022-03-27 21:27] LABS: INR 1.1; Prothrombin Time 12.2 Seconds (9.50-12.10)
[2022-03-27 21:30] LABS: Alanine Aminotransferase 17 U/L (14-59); Albumin Level 3.2 g/dL (3.4-5.0); Alkaline Phosphatase 109 U/L (46-116); Anion Gap 7 mmol/L (8-16); Aspartate Amino Transferase 17 U/L (15-37); Bilirubin,Total 0.8 mg/dL (0.00-1.00); Blood Urea Nitrogen 16 mg/dL (7-18); Carbon Dioxide 26 mmol/L (21-32); Chloride 104 mmol/L (98-108); Estimated CRCL calculation 74 ml/min; Estimated Glomerular Filt Rate > 60; Glucose 107 mg/dL (70-99); Lipase 50 U/L (16-77); Osmolality Calculated 285 mOsm/kg (285-295); Potassium 3.8 mmol/L (3.5-5.1); Sodium 137 mmol/L (136-145); Total Protein 7.5 g/dL (6.4-8.2)
[2022-03-27 21:30] LABS: RBC Urine 0-2 /hpf (0-2); Squamous Epithelial Cell Urine Few /hpf (Few)
[2022-03-27 21:31] LABS: Bacteria Urine 1+ /hpf; Mucus Urine Few /lpf
[2022-03-27 21:35] LABS: Lactic Acid Reflex 0.9 mmol/L (0.4-2.0)
[2022-03-27 21:52] VITALS: BP 159/83; PULSE 110; RESP 20; TEMP 36.4; O2SAT 92
== END 2022-03-27 22:16 | disposition home or self-care (01) ==
PROVIDERS: Emergency Provider Internal Medicine Critical Care Medicine
DX: K52.9 Noninfective gastroenteritis and colitis, unspecified (principal); J44.9 Chronic obstructive pulmonary disease, unspecified; E86.0 Dehydration; F17.210 Nicotine dependence, cigarettes, uncomplicated; Z79.82 Long term (current) use of aspirin
CPT/HCPCS: 36415; 80053; 81001; 83605; 83690; 85025; 85610; 87077; 87086; 87088; 87186; 96374; 99284; J2405; J7120

== ENCOUNTER 2022-04-10 13:50 | Outpatient (CLI) | payer MEDICARE, MEDICAID, SELFPAY ==
--- NOTE | ~2022-04-10 | XR_ITS ---
EXAMINATION: XR chest 2V DATE: 04/10/2022 14:09 INDICATION: Cough, unspecified. TECHNIQUE: Frontal and lateral views of the chest were obtained. COMPARISON: Chest 2 views 10/09/2021 FINDINGS: A calcified left lung nodule is consistent with old granulomatous disease. No pleural effus ion or pneumothorax. The heart size is normal. Surgical clips in the right upper quadrant are likely from cholecystectomy. There are suture anchors in right humeral head. There is an old healed right ri b fracture. IMPRESSION: 1. No acute cardiopulmonary disease. Reviewed, dictated and finalized at location A. 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
== END 2022-04-10 13:51 | disposition home or self-care (01) ==
LOC: CHSIMG 13:52
PROVIDERS: PCP Family Medicine; Visit Provider Nurse Practitioner Family
DX: R05.9 Cough, unspecified (principal)
CPT/HCPCS: 71046

== ENCOUNTER 2022-04-17 02:01 | Day surgery (SDC) | payer MEDICARE, MEDICAID, SELFPAY ==
[2022-04-13 10:13] VITALS: BMI 19.7
[2022-04-17 12:20] VITALS: BP 146/75; PULSE 108; RESP 17; TEMP 36.5; O2SAT 97; BMI 18.8
[2022-04-17] MEDS: LACTATED RINGERS 1,000 ML 150 ML IV CONT (12:34)
--- NOTE | 2022-04-17 12:47 | WPDANESEPPF ---
Anes - Initial Pre Proc Eval Procedure: Operation Date: 04/17/22 13:30 Proposed Procedures p Colonoscopy - Lucas Ovalles MD Date/Time: 04/17/22 12:47 Surgeon: Lucas Ovalles MD Pre Op Diagnosis: abdominal pain, diverticulitis Patient Data Age: 61 Gender: F Height: 1.55 m Weight: 45.1 kg Last Vital Signs Temp 97.7 F 04/17/22 12:20 Pulse 108 H 04/17/22 12:20 Resp 17 04/17/22 12:20 BP 146/75 H 04/17/22 12:20 Pulse Ox 97 04/17/22 12:20 O2 Del Method Room Air 04/17/22 12:20 Allergies Allergy/AdvReac Type Severity Reaction Status Date / Time No Known Allergies Allergy Verified 04/17/22 12:18 Home Medications Medication Instructions Recorded Confirmed Type aspirin 81 mg tablet,delayed 81 mg PO DAILY #90 tabs 08/09/20 04/17/22 Rx release losartan 100 mg tablet See Rx Instructions .Route 03/25/22 04/17/22 Rx .COMPLEX #90 tabs ondansetron 4 mg disintegrating 4 mg PO QID PRN nausea and 03/27/22 04/17/22 Rx tablet vomiting #10 tabs valacyclovir 1 gram tablet 1,000 mg PO DAILY #90 tabs 04/03/22 04/17/22 Rx Breztri Aerosphere 160 2 inh inhalation BID #10.7 grams 04/10/22 04/17/22 Rx mcg-9mcg-4.8mcg/actuation HFA aerosol inhaler (zszcwmhpaj-puynhrdf-vawjsojahq) albuterol sulfate 2.5 mg/3 mL 2.5 mg (3 mL) inhalation Q6H PRN 04/10/22 04/17/22 Rx (0.083 %) solution for nebulization shortness of breath or wheezing #360 mL albuterol sulfate 90 mcg/actuation 1 - 2 inh inhalation Q4-6H PRN 04/10/22 04/17/22 Rx aerosol inhaler shortness of breath or wheezing #8.5 grams Patient hx anesthesia problems: none Family hx anesthesia problems: none Results Review: All pre-operative results and documents have been reviewed as part of the pre-operative evaluation. PMFSH Past Medical History Medical History Anemia Atypical chest pain Cough Elevated glucose level Exposure to COVID-19 virus Family history of other kidney diseases Positive depression screening Sciatica, right side Shortness of breath Tobacco dependence Surgical History Surgical History History of carpal tunnel release History of hysterectomy Hx of cholecystectomy Status post right rotator cuff repair Family History Family History Father Alcoholic Cancer Mother Asthma Diabetes mellitus Hypertension Depression Thyroid disorder Sibling Asthma Thyroid disorder Other Asthma Thyroid disorder Grandparent Cancer Thyroid disorder Grandparent Cancer Daughter Alports syndrome Social History Social History Smoking packs per day: 0.5 Smoking cigarettes per day: 10.0 Years smoked: 45 Smoking pack-years: 22.50 Smoking status: Current every day smoker Tobacco type: cigarettes Second hand tobacco smoke exposure: Yes Additional smoking assessment comments: Smoking 1/4-1/2ppd now. Alcohol intake: former Substance use: former Substance use type: does not use Lack of Transportation: No Lack of Food: Never True Current Housing: I Have Housing Concerned About Future Housing: No Difficulty Paying Gas/Electric Bills: No Difficulty Paying for Meds: No Currently Unemployed: No Education: High School Diploma/GED Difficulty w/ Childcare or Family Care: No Living arrangements: alone Occupation/Education: other Additional occupation/education comments: Disabled Gender identity (if verbalized by the patient): Female Spiritual care concerns: No Anes - Eval Final PreProcedure Day of Procedure 04/17/22 12:47 Patient weight: normal Heart: regular rate and rhythm Lungs: clear to auscultation Airway: Mallampati scale class II Neurological: alert and oriented Last oral intake: >/= 8 hours ASA c
--- NOTE | 2022-04-17 12:51 | WPDHPUPDATE1 ---
History and Physical Update Update Date/Time: 04/17/22 12:51 History and Physical has been reviewed, including an updated exam of the patient. There are NO changes in the patient's condition. Risks, benefits, and alternatives have been discussed and questions answered. Patient agrees to proceed with procedure.
[2022-04-17 13:18] VITALS: BP 133/70; PULSE 114; RESP 24; O2SAT 98
[2022-04-17 13:28] VITALS: BP 141/64; PULSE 92; RESP 22; O2SAT 97
[2022-04-17 13:38] VITALS: BP 136/62; PULSE 91; RESP 26; O2SAT 99
== END 2022-04-17 13:50 | disposition home or self-care (01) ==
PROVIDERS: PCP Family Medicine; Visit Provider Internal Medicine Gastroenterology
PROC: 0DJD8ZZ Inspection of Lower Intestinal Tract, Via Natural or Artificial Opening Endoscopic (ICD-10-PCS; CPT 45378; principal; 2022-04-17 13:30)
DX: Z12.11 Encounter for screening for malignant neoplasm of colon (principal); K57.30 Diverticulosis of large intestine without perforation or abscess without bleeding; Z87.19 Personal history of other diseases of the digestive system; Z53.8 Procedure and treatment not carried out for other reasons; Z79.51 Long term (current) use of inhaled steroids; Z79.82 Long term (current) use of aspirin; F17.210 Nicotine dependence, cigarettes, uncomplicated
CPT/HCPCS: G0121; J2704; J7120

== ENCOUNTER 2022-05-20 10:15 | Outpatient (CLI) | payer MEDICARE, MEDICAID, SELFPAY ==
[2022-05-20 11:03] LABS: Free T4 Free Thyroxine 3.93 ng/dL (0.76-1.46)
[2022-05-20 11:04] LABS: Thyroid Stimulating Hormone < 0.01 uIU/mL (0.36-3.74)
[2022-05-22 18:36] LABS: Thyrotropin Receptor Antibody 8.92 IU/L (<=2.00)
[2022-05-23 04:22] LABS: Thyroid Peroxidase Antibodies 296 IU/mL (<9)
[2022-05-25 14:02] LABS: Thyroid Stimulating Immunoglob 537 % baseline (<140)
== END 2022-05-20 10:16 | disposition home or self-care (01) ==
LOC: CHSLAB 10:16
PROVIDERS: PCP Family Medicine; Visit Provider Internal Medicine
DX: E05.90 Thyrotoxicosis, unspecified without thyrotoxic crisis or storm (principal)
CPT/HCPCS: 36415; 83519; 84439; 84443; 84445; 84481; 86376

== ENCOUNTER 2022-06-24 10:38 | Outpatient (CLI) | payer MEDICARE, SELFPAY ==
[2022-06-24 11:52] LABS: Alanine Aminotransferase 20 U/L (14-59); Alkaline Phosphatase 143 U/L (46-116); Anion Gap 9 mmol/L (8-16); Aspartate Amino Transferase 15 U/L (15-37); Bilirubin,Total 0.3 mg/dL (0.00-1.00); Blood Urea Nitrogen 15 mg/dL (7-18); Calcium 8.1 mg/dL (8.5-10.1); Carbon Dioxide 29 mmol/L (21-32); Chloride 106 mmol/L (98-108); Estimated Glomerular Filt Rate > 60; Free T4 Free Thyroxine 1.42 ng/dL (0.76-1.46); Glucose 121 mg/dL (70-99); Osmolality Calculated 299 mOsm/kg (285-295); Potassium 3.5 mmol/L (3.5-5.1); Sodium 144 mmol/L (136-145); Total Protein 6.8 g/dL (6.4-8.2)
[2022-06-28 16:56] LABS: Total Triiodothyronine (T3) 179.5 ng/dL (76-181)
== END 2022-06-24 10:39 | disposition home or self-care (01) ==
LOC: CHSLAB 10:40
PROVIDERS: PCP Family Medicine; Visit Provider Internal Medicine
DX: E05.90 Thyrotoxicosis, unspecified without thyrotoxic crisis or storm (principal)
CPT/HCPCS: 36415; 80053; 84439; 84480

== ENCOUNTER 2022-09-14 09:52 | Outpatient (CLI) | payer MEDICARE, SELFPAY ==
--- NOTE | ~2022-09-14 | CT_ITS ---
CT Scan of the Chest without Contrast: Clinical Indication: Lung cancer screening, smoking history Technique: Contiguous sections were acquired throughout the chest without intravenous contrast. Dose reduction technique was used on this scan by utilizing automated exposure control and iterative recon struction technique. The dose-length product (DLP) was 56.01 mGy-cm. COMPARISON: 09/12/2021 Findings: There is no evidence of any significant mediastinal, hilar or axillary lymphadenopathy. Coronary edwin ry calcifications are present. There is no evidence of pleural or pericardial effusion. There is calcified left basilar granuloma and linear left basilar scarring. Images through the upper abdomen reveal no abnormalities. Impression: Lung RADS 2: Benign appearance. 12 month follow-up screening CT advised. Reviewed, dictated and finalized at location . Impression: Lung RADS 2: Benign appearance. 12 month follow-up screening CT advised.
[2022-09-14 10:42] LABS: Free T3 10.08 pg/mL (2.18-3.98); Free T4 Free Thyroxine 2.29 ng/dL (0.76-1.46)
== END 2022-09-14 09:53 | disposition home or self-care (01) ==
LOC: CHSIMG 09:57
PROVIDERS: PCP Family Medicine; Visit Provider Nurse Practitioner Family
DX: E05.90 Thyrotoxicosis, unspecified without thyrotoxic crisis or storm (principal); Z12.2 Encounter for screening for malignant neoplasm of respiratory organs; Z87.891 Personal history of nicotine dependence
CPT/HCPCS: 36415; 71271; 84439; 84481

== ENCOUNTER 2022-10-23 11:42 | Outpatient (CLI) | payer MEDICARE, MEDICAID, SELFPAY ==
[2022-10-23 12:30] LABS: Free T3 5.35 pg/mL (2.18-3.98); Free T4 Free Thyroxine 1.45 ng/dL (0.76-1.46); Thyroid Stimulating Hormone < 0.01 uIU/mL (0.36-3.74)
== END 2022-10-23 11:43 | disposition home or self-care (01) ==
LOC: CHSLAB 11:44
PROVIDERS: PCP Family Medicine; Visit Provider Internal Medicine
DX: E05.90 Thyrotoxicosis, unspecified without thyrotoxic crisis or storm (principal)
CPT/HCPCS: 36415; 84439; 84443; 84481

== ENCOUNTER 2022-12-04 12:00 | Outpatient (CLI) | payer MEDICARE, SELFPAY ==
[2022-12-04 13:04] LABS: Free T4 Free Thyroxine 1.12 ng/dL (0.76-1.46)
== END 2022-12-04 12:01 | disposition home or self-care (01) ==
LOC: CHSLAB 12:02
PROVIDERS: PCP Family Medicine; Visit Provider Internal Medicine
DX: E05.90 Thyrotoxicosis, unspecified without thyrotoxic crisis or storm (principal)
CPT/HCPCS: 36415; 84439; 84481

== ENCOUNTER 2023-01-06 09:38 | Outpatient (CLI) | payer MEDICARE, MEDICAID, SELFPAY ==
--- NOTE | ~2023-01-06 | XR_ITS ---
[id number] 01/06/2023 09:56 Indication: Radiculopathy Procedure: 3 views cervical spine Comparison: No prior studies for comparison. Findings: There is degenerative anterolisthesis at C5-6. No prevertebral soft tissue swelling. Verteb ral body heights are maintained. There is disc narrowing at C5-6 and C6-7. No prevertebral soft tissue swelling. No acute fracture or traumatic malalignment. Moderate multileve l uncinate and facet hypertrophy. Impression: 1: Moderate cervical spondylosis. Reviewed, dictated and finalized at location B. Impression: 1: Moderate cervical spondylosis.
== END 2023-01-06 09:39 | disposition home or self-care (01) ==
LOC: CHSIMG 09:39
PROVIDERS: PCP Family Medicine; Visit Provider Family Medicine
DX: M54.12 Radiculopathy, cervical region (principal); M43.02 Spondylolysis, cervical region
CPT/HCPCS: 72040

== ENCOUNTER 2023-01-11 13:45 | Outpatient (RCR) | payer MEDICARE, MEDICAID, SELFPAY ==
--- NOTE | 2023-01-11 15:00 | PTOPEVAL1 ---
Assessment and note entered by Dayday Hernandez Evaluation Information Assessment Status Evaluation Diagnosis cervical radiculopathy Onset 01/05/23 Subjective Information Pt. reports that she woke with pain shooting down the left arm on 01/05. She reports that she could not move the neck initially but that has improved. She continues to notices weakness, numbbness and tingling and pain shooting into the left arm. Pt. is right hand dominant. She reports that her pain is constant. She reports her sleep is disrupted due to pain. 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 She states that she returns to work tomorrow. She reports that her goal is to be able to decrease her neck and arm pain. Reported Pain Level Pain Score 8: Self Report Assessment PT Clinical Summary Pt. is a 62 year old female who enters the clinic with neck pain. She presents with impaired postural awareness, impaired proximal u.e. strength and ball sorter strength, impaired c-spine ROM and pain on this date. Continued skilled PT is indicated in order to improve these areas to allow the pt. to achieve improved comfort with all IADL 's. Plan of Care Interventions Electrical Stimulation,Hot Pack/Cold Pack,Manual Therapy,Mechanical Traction,Neuro Re-education, Patient/Caregiver Educati,Therapeutic Activities, Therapeutic Exercise PT Services Indicated Yes Treatment Frequency and 2x/week x 10 visits Duration These treatments will address the objective and functional deficits as defined above. The patient will be advanced safely and appropriately in order for the patient to progress towards his/her prior level of function. Additional exercises will be introduced and as well as a comprehensive home exercise program upon discharge, if needed, ?to ensure carryover of functional gains achieved in the clinic. This treatment plan has been reviewed and agreement upon by the patient.
--- NOTE | 2023-01-11 15:01 | OPREHPOC ---
Outpatient Therapy Plan of Care This is a Multidisciplinary Plan of Care that may contain components documented by all disciplines (PT, OT, and ST.) PT Problem 1 PT Problem #1 Knowledge Deficit PT Goal 1 Goal Independent with a HEP addressing strength and postural awareness Target Visit 2 PT Problem 2 PT Problem #2 Impaired Range of Motion PT Goal 1 Goal Pt. will demonstrates 60 degrees or greater left c -spine rotation to improve her visual field Target Visit 10 PT Problem 3 PT Problem #3 Impaired Strength PT Goal 1 Goal Pt. will increase proximal u.e. strength and middle traepzius strength to 4+/5 or greater Target Visit 10 PT Problem 4 PT Problem #4 Impaired Functional Mobil PT Goal 1 Goal Pt. will present with 20% limitaiton or less with the NDI.
== END 2023-01-11 23:59 | disposition home or self-care (01) ==
LOC: CHSPT 13:45
PROVIDERS: PCP Family Medicine; Visit Provider Family Medicine
DX: M54.12 Radiculopathy, cervical region (principal)
CPT/HCPCS: 97014; 97110; 97161; G0283

== ENCOUNTER 2023-01-25 13:13 | Outpatient (CLI) | payer MEDICARE, MEDICAID, SELFPAY | END 2023-01-25 13:14 | disposition home or self-care (01) | LOC: CHSLAB 13:16 | PROVIDERS: PCP Nurse Practitioner Family; Visit Provider Nurse Practitioner Family | DX: N76.4 Abscess of vulva (principal) | CPT/HCPCS: 87070; 87147; 87186 ==

== ENCOUNTER 2023-05-18 13:39 | Observation (INO) | payer MEDICARE, MEDICAID, SELFPAY ==
[2023-05-18] VITALS (19 sets, daily range): BP systolic 124–152; BP diastolic 67–90; PULSE 99–120; RESP 20–36; TEMP 36.9; O2SAT 91–98; BMI 23.1
--- NOTE | ~2023-05-18 | XR_ITS ---
Portable chest x-ray Comparison: 04/10/2022 Clinical History: Cough Findings: Lungs are clear, without focal consolidation or pleural effusion. Cardiomediastinal silho uette is stable. Bones and soft tissues are unremarkable. Impression: Clear lungs. Reviewed, dictated and finalized at location . TING ESTIMATOR Impression: Clear lungs.
--- NOTE | 2023-05-18 13:49 | ECG_ITS ---
Measurements Intervals [place] Rate: 116 P: 73 CO: 128 QRS: 34 QRSD: 88 T: 61 QT: 313 QTc: 435 Interpretive Statements SINUS TACHYCARDIA MODERATE VOLTAGE CRITERIA FOR LVH, CONSIDER NORMAL VARIANT [MEETS CRITERIA IN ONE OF: R(aVL), S(V1), R(V5), R(V5/V6)+S(V1)] MINIMAL ST DEPRESSION [0.025+ mV ST DEPRESSION] ABNORMAL RHYTHM ECG COMPARED TO ECG 06/02/2021 01:56:45 SINUS TACHYCARDIA NOW PRESENT ST (T WAVE) DEVIATION NOW PRESENT Electronically Signed On 05-18-2023 15:17:08 SUPERVISOR BONDING by Elijah Palomo M.D.
--- NOTE | 2023-05-18 13:49 | ED.GENADULT ---
HPI - General Adult General Chief complaint: Upper Respiratory Infection Stated complaint: SHORTNESS OF BREATH Time Seen by Provider: 05/18/23 13:43 History of Present Illness HPI narrative: Mercy is a 62F with a PMH of hypothyroidism, anemia, chronic back pain, osteoporosis and COPD that presented to the ED with 3 days of worsening cough, congestion and dyspnea as well as pain in her upper back. It is not improved with breathing treatments at home. No chest pain, vomiting or lightheadedness reported. Related Data Allergies Allergy/AdvReac Type Severity Reaction Status Date / Time No Known Allergies Allergy Verified 05/18/23 13:44 Review of Systems Review of Systems: All systems reviewed & are unremarkable except as noted in HPI and below PMFSH Past Medical History Medical History Anemia Atypical chest pain Colon, diverticulosis Cough Elevated glucose level Exposure to COVID-19 virus Family history of other kidney diseases Positive depression screening Sciatica, right side Shortness of breath Tobacco dependence Surgical History Surgical History History of carpal tunnel release History of hysterectomy Hx of cholecystectomy Status post right rotator cuff repair Family History Family History Father Alcoholic Cancer Mother Asthma Diabetes mellitus Hypertension Depression Thyroid disorder Sibling Asthma Thyroid disorder Other Asthma Thyroid disorder Grandparent Cancer Thyroid disorder Grandparent Cancer Daughter Alports syndrome Social History Social History Smoking packs per day: 0.5 Smoking cigarettes per day: 10.0 Years smoked: 45 Smoking pack-years: 22.50 Smoking status: Current every day smoker Tobacco type: cigarettes Second hand tobacco smoke exposure: Yes Additional smoking assessment comments: Smoking 1/4-1/2ppd now. Alcohol intake: former Substance use: former Substance use type: does not use Lack of Transportation: No Lack of Food: Never True Current Housing: I Have Housing Concerned About Future Housing: No Difficulty Paying Gas/Electric Bills: No Difficulty Paying for Meds: No Currently Unemployed: No Education: High School Diploma/GED Difficulty w/ Childcare or Family Care: No Living arrangements: alone Occupation/Education: other Additional occupation/education comments: Disabled Gender identity (if verbalized by the patient): Female Spiritual care concerns: No Exam Const: General: cooperative, comfortable, no acute distress, well developed, alert, awake and Physically active Orientation/consciousness: oriented to person, oriented to place and oriented to time HENMT: Head: normal to inspection, normocephalic and atraumatic Ears: hearing grossly normal bilaterally and external ears normal Face/Nose/Sinus: Normal external nose present Eyes: General: appearance normal, both eyes and all related structures Periorbital: periorbital findings normal Sclera: sclerae normal Pupils: Equal, round and reactive pupils present Neck: Neck: normal visual inspection Chest: Chest palpation & inspection: normal inspection of the chest Resp: Effort & Inspection: able to speak in complete sentences, labored, no respiratory distress and tachypneic Other: diffuse wheezing with poor air movement. Frequent cough on exam Cardio: Jugular venous distension: no JVD Rate: regular rate Rhythm: regular rhythm GI: Inspection: normal to inspection GI Palp: Yes Soft to palpation Auscultation: normal bowel sounds Skin: General skin exam: normal color and no rashes or lesions noted Neuro: General: oriented to person, oriented to place and oriented to time Cranial nerves: Yes Equal, round and reactiv
[2023-05-18 14:02] LABS: Base Excess ABG -0.6 mmol/L (0-2); HCO3 ABG 23.4 mmol/L (23-29); Oxygen Content ABG 17.6 %vol (16.0-22.0); Oxygen Saturation ABG 93.9 % (95-97); Oxyhemoglobin 93.2 % (94-100); PCO2 ABG 36.6 mmHg (35-45); Total Hemoglobin 13.4 g/dL (12.0-18.0); pH ABG 7.42 (7.35-7.45)
[2023-05-18 14:03] LABS: Site Drawn LEFT RADIAL
[2023-05-18] MEDS: AZITHROMYCIN 250 MG TABLET 500 MG PO (14:03)
[2023-05-18 14:04] LABS: Basophils Absolute Auto 0.03 K/mm3 (0.00-0.10); Basophils Percent Auto 0.4 % (0.0-1.0); Device ROOM AIR; Eosinophils Absolute Auto 0.02 K/mm3 (0.02-0.50); Eosinophils Percent Auto 0.3 % (1.0-6.0); Hematocrit 37.6 % (35.0-49.0); Hemoglobin 12.5 g/dL (12.0-15.0); Immature Granulocyte Absolute 0.01 K/mm3 (0.00-0.00); Immature Granulocyte Percent A 0.1 % (0.0-0.0); Mean Corpuscular HGB Conc 33.2 g/dL (32.0-36.0); Mean Corpuscular Hemoglobin 27.3 pg (27.0-31.0); Mean Corpuscular Volume 82.1 fL (78.0-102.0); Mean Platelet Volume 9.6 fl (9.2-11.8); Modified Allen's Test Pass; Monocytes Absolute Auto 1.07 K/mm3 (0.10-0.90); Monocytes Percent Auto 13.4 % (2.0-11.0); Neutrophils Absolute Auto 5.7 K/mm3 (1.7-7.2); Neutrophils Percent Auto 70.8 % (50.0-70.0); Platelet Count Result 161 K/mm3 (150-420); Red Blood Count 4.58 M/mm3 (4.20-5.40); Red Cell Distribution Width 11.8 % (11.6-14.4)
[2023-05-18] MEDS: IPRATROPIUM 0.5 MG/ALBUTEROL SULFATE 2.5 MG AMPUL.NEB 3 ML INHALATION (14:05)
[2023-05-18] MEDS: SODIUM CHLORIDE 0.9% IV 1,000 ML 999 ML IV CONT (14:11)
[2023-05-18] MEDS: methylPREDNISolone SOD SUCC 125 MG VIAL IV PUSH (14:11)
--- NOTE | 2023-05-18 14:24 | PC.NURSE ---
PT COMPLETED NEB TX WITHOUT DIFFICULTY. PT IS COUGHING UP THICK YELLOW SPUTUM. PT HAS LIGHTS OFF AND IS LYING ON STRETCHER REQUESTED. PT REMAINS TACHYPNEIC, WITH LABORED RESPIRATIONS. WILL CONTINUE TO MONITOR.
[2023-05-18 14:29] LABS: Alanine Aminotransferase 11 U/L (14-59); Alkaline Phosphatase 100 U/L (46-116); Anion Gap 12 mmol/L (8-16); Aspartate Amino Transferase 13 U/L (15-37); Bilirubin,Total 0.6 mg/dL (0.00-1.00); Blood Urea Nitrogen 11 mg/dL (7-18); Calcium 8.6 mg/dL (8.5-10.1); Carbon Dioxide 24 mmol/L (21-32); Chloride 101 mmol/L (98-108); Estimated CRCL calculation 61 ml/min; Estimated Glomerular Filt Rate > 60; Glucose 143 mg/dL (70-99); Osmolality Calculated 285 mOsm/kg (285-295); Potassium 3.3 mmol/L (3.5-5.1); Sodium 137 mmol/L (136-145); Total Protein 7.4 g/dL (6.4-8.2)
[2023-05-18 14:32] LABS: Influenza A QL RT-PCR Negative (Negative); Influenza B QL RT-PCR Negative (Negative); RSV RNA, RT-PCR Negative (Negative); SARS-CoV-2 RNA PCR Negative (Negative)
[2023-05-18 14:33] LABS: Troponin I 13.1 ng/L (0.00-60.4)
[2023-05-18 14:34] LABS: NT Pro B Type Natriuretic Pept 1172 pg/mL (0-125)
[2023-05-18] MEDS: MAGNESIUM SULF 2 GM/WATER 50ML 2 GM/50 ML BAG IVPB (15:10)
[2023-05-18] MEDS: KCL 20 MEQ/SW 100 ML 100 ML 50 MEQ IVPB (15:10)
--- NOTE | 2023-05-18 16:08 | PC.NURSE ---
PT WAS ABLE TO TAKE A SMALL NAP WITHOUT COUGHING. SOON PT AWAKES, SHE CONTINUES TO HACK AND COUGH UP THICK YELLOW SPUTUM. PT BREATHES IN LOW 20'S WHILE ASLEEP, SOON SHE WAKES, TALKS, OR MOVES HER RESPIRATIONS ELEVATE INTO THE 30 RANGE. PT IS TO BE ADMITTED TO [facility], PT IS AGREEABLE TO PLAN OF CARE. WILL CONTINUE TO MONITOR.
--- NOTE | 2023-05-18 16:30 | ADMGEN ---
This patient, Mercy Martinez, was admitted to 2nd Floor Room 201-1. Patient/family oriented to hospital policies and general routines including ID bracelet, bed and alarms, visiting hours, pain management, procedures, bathroom and other care routines, personal items, smoking policy, room service/diet, and visiting hours. Information on how to activate the Rapid Response Team has been discussed. Patient/Family are encouraged to report perceived risks to care and to ask questions if they do not understand what they are told or what they should do.
[2023-05-19 00:15] VITALS: BP 162/88; PULSE 104; RESP 18; TEMP 35.9; O2SAT 95
[2023-05-19 05:17] LABS: Hemoglobin 11.4 g/dL (12.0-15.0); Immature Granulocyte Absolute 0.03 K/mm3 (0.00-0.00); Immature Granulocyte Percent A 0.5 % (0.0-0.0); Lymphocytes Absolute Auto 0.59 K/mm3 (1.10-4.50); Lymphocytes Percent Auto 10.5 % (18.0-42.0); Mean Corpuscular HGB Conc 32.6 g/dL (32.0-36.0); Mean Corpuscular Hemoglobin 26.8 pg (27.0-31.0); Mean Corpuscular Volume 82.4 fL (78.0-102.0); Mean Platelet Volume 10.3 fl (9.2-11.8); Monocytes Absolute Auto 0.12 K/mm3 (0.10-0.90); Monocytes Percent Auto 2.1 % (2.0-11.0); Neutrophils Absolute Auto 4.9 K/mm3 (1.7-7.2); Neutrophils Percent Auto 86.9 % (50.0-70.0); Platelet Count Result 155 K/mm3 (150-420); Red Blood Count 4.25 M/mm3 (4.20-5.40); Red Cell Distribution Width 11.9 % (11.6-14.4); White Blood Count 5.6 K/mm3 (4.8-10.8)
[2023-05-19 05:39] LABS: Albumin Level 2.7 g/dL (3.4-5.0); Alkaline Phosphatase 91 U/L (46-116); Anion Gap 7 mmol/L (8-16); Aspartate Amino Transferase 10 U/L (15-37); Bilirubin,Total 0.4 mg/dL (0.00-1.00); Blood Urea Nitrogen 15 mg/dL (7-18); Calcium 8.7 mg/dL (8.5-10.1); Carbon Dioxide 27 mmol/L (21-32); Chloride 105 mmol/L (98-108); Estimated CRCL calculation 84 ml/min; Estimated Glomerular Filt Rate > 60; Glucose 141 mg/dL (70-99); Osmolality Calculated 290 mOsm/kg (285-295); Potassium 4.2 mmol/L (3.5-5.1); Sodium 139 mmol/L (136-145)
[2023-05-19 05:40] LABS: Alanine Aminotransferase < 6 U/L (14-59)
[2023-05-19 08:00] VITALS: BP 180/84; PULSE 114; RESP 22; TEMP 36.3; O2SAT 93
[2023-05-19] MEDS: methiMAzole 10 MG TAB 20 MG PO (08:52)
[2023-05-19] MEDS: LOSARTAN POTASSIUM 50 MG TABLET 100 MG PO (08:53)
[2023-05-19] MEDS: ASPIRIN 81 MG ENTERIC TABLET PO (08:53)
[2023-05-19] MEDS: methylPREDNISolone SOD SUCC 40 MG VIAL IV PUSH (08:53)
--- NOTE | 2023-05-19 11:23 | PM.IMHP ---
H&P: HPI History of Present Illness Date/Time: 05/18/23 4789 Chief Complaint: shortness breath Narrative: This is a very pleasant 62-year-old female with a significant past medical history COPD, history of smoking, hypertension, hyperthyroidism , and cataracts who presented to the hospital with shortness of breath. She states that her shortness of breath and cough started about 3-4 days ago. She had family that visited that had an upper respiratory infection prior to that. She denies any fever, chills, chest pain, nausea, vomiting, diarrhea, abdominal pain, lightheadedness, or dizziness. She does endorse headache, shortness of breath, and persistent cough. She states that she has tried a breathing treatment at home which did not give her much relief and that is why she presented for further evaluation. Workup in the hospital included a chest x-ray will which was negative for any cardiopulmonary disease, consolidation, or pleural effusion. Initial labs revealed a normal white blood cell count, oxy hemoglobin 93.2, potassium 3.3, normal kidney function, normal liver function, troponin was 13.1, proBNP was 11 72, albumin 3.0, hemoglobin A1c was 5.5. Respiratory panel was also obtained and was negative for influenza a and B, RSV, and COVID. EKG was performed and showed sinus tachycardia with a rate of 116, QTC 435. She was given a DuoNeb, loading dose of Solu-Medrol 125 mg IV push, a dose of azithromycin, 1 L normal saline, 2 g of Mag, 20 mEq of potassium while in the ED. We were asked to admit for observation due to her respiratory rate being in the 30s and she still appears to be in acute respiratory distress. Review of Systems Review of Systems: All systems reviewed & are unremarkable except as noted in HPI and below Constitutional: Constitutional: Reports as per HPI and Reports no additional constitutional complaints Eyes: Eyes: Reports as per HPI and Reports no additional eye complaints ENT: Reports system reviewed and no additional complaints, except as documented and Reports as per HPI Cardiovascular: Cardiovascular: Reports as per HPI and Reports no additional cardiovascular complaints Respiratory: Respiratory: Reports as per HPI and Reports no additional respiratory complaints Gastrointestinal: Gastrointestinal: Reports as per HPI and Reports no additional gastrointestinal complaints Genitourinary: Genitourinary: Reports no additional female genitourinary complaints and Reports as per HPI Musculoskeletal: Musculoskeletal: Reports no additional musculoskeletal complaints and Reports as per HPI Integumentary/Breasts: Skin/Breast: Reports system reviewed and no additional complaints, except as docu and Reports as per HPI Neurologic: Reports system reviewed and no additional complaints, except as documented and Reports as per HPI Psychiatric: Psychiatric: Reports no additional psychiatric complaints and Reports as per HPI [facility] Past Medical History Medical History Anemia Atypical chest pain Colon, diverticulosis COPD (chronic obstructive pulmonary disease) Cough Elevated glucose level Essential (primary) hypertension Exposure to COVID-19 virus Family history of other kidney diseases GERD (gastroesophageal reflux disease) Hyperthyroidism Positive depression screening Sciatica, right side Shortness of breath Tobacco dependence Surgical History Surgical History History of carpal tunnel release History of hysterectomy Hx of cholecystectomy Status post right rotator cuff repair Family History Family History Father Alcoholic Cancer Mother Asthma Diabetes mellitus Hypertension Depression Thyroid disorder Sibling Asthma Thyroid disorder Other Asthma Thyroid disorder Grandparent Cancer Thyroid disorder Grandparent Cancer Daught
--- NOTE | 2023-05-19 13:00 | PC.NURSE ---
pt transported via wheelchair to front of hospital and ambulated self to personal vehicle.
[2023-05-19 13:22] LABS: Hemoglobin A1C 5.5 % (<5.7)
--- NOTE | 2023-05-19 14:26 | PM.DS ---
DS: Admitting Diagnosis Discharge Date 05/19/23 Admitting Diagnosis acute respiratory failure COPD exacerbation hyperthyroidism hypertension DS: Discharge Diagnosis Discharge Diagnosis (1) Acute respiratory failure: Code(s): J96.00 - Acute respiratory failure, unspecified whether with hypoxia or hypercapnia Status: Acute (2) COPD with exacerbation: Code(s): J44.1 - Chronic obstructive pulmonary disease with (acute) exacerbation Status: Acute (3) Hyperthyroidism: Code(s): E05.90 - Thyrotoxicosis, unspecified without thyrotoxic crisis or storm Status: Acute (4) Essential (primary) hypertension: Code(s): I10 - Essential (primary) hypertension Status: Chronic DS: Summary Hospital Course Reason for hospitalization: acute respiratory failure COPD exacerbation hyperthyroidism hypertension Hospital Course: ?This is a very pleasant 62-year-old female with a significant past medical history COPD, history of smoking, hypertension,? hyperthyroidism , and cataracts who presented to the hospital with shortness of breath.? She states that her shortness of breath and cough started about 3-4 days ago.? She had family that visited that had an upper respiratory infection prior to that.? She denies any fever, chills, chest pain,? nausea, vomiting, diarrhea, abdominal pain, lightheadedness, or dizziness.? She does endorse headache, shortness of breath, and persistent cough.? She states that she has tried a breathing treatment at home which did not give her much relief and that is why she presented for further evaluation.? Workup in the hospital included a chest x-ray will which was negative for any cardiopulmonary disease, consolidation, or pleural effusion.? Initial labs revealed a normal white blood cell count, oxy hemoglobin 93.2, potassium 3.3, normal kidney function, normal liver function, troponin was 13.1, proBNP was 11 72, albumin 3.0, hemoglobin A1c was 5.5.? Respiratory panel was also obtained and was negative for influenza a and B, RSV, and COVID.? EKG was performed and showed sinus tachycardia with a rate of 116, QTC 435.? She was given a DuoNeb, loading dose of Solu-Medrol 125 mg IV push, a dose of azithromycin, 1 L normal saline, 2 g of Mag, 20 mEq of potassium while in the ED. We were asked to admit for observation due to her respiratory rate being in the 30s and she still appears to be in acute respiratory distress. on examination today patient is alert oriented x4, lying in the bed. She states she is feeling much better today And is ready to go home. Labs today were essentially unremarkable. patient is currently on room air, she is afebrile, her blood pressure is elevated and ranging between 152/84 to 180/84 otherwise her vital signs are normal. Patient is stable for discharge today. She will be sent home with a Solu-Medrol Dosepak and azithromycin. She will need to follow up with her primary care physician for follow-up on her COPD exacerbation and her hypertension which is not been controlled with her regular medication. I discussed that her blood pressure has been ranging very high and they may need to make adjustments on her medication. Final diagnosis: acute respiratory failure due to COPD exacerbation, hypertension Status at Discharge Cognitive/behavioral status at discharge: alert oriented x4 Functional status at discharge: independent ambulation Overall status at discharge: patient is progressing back to baseline Time Spent with Patient Time attestation: Total time spent providing and/or coordinating discharge services: Time spent: Greater than 30 minutes Exam Narrative: General: In no acute distress, well nourished Head: atraumatic, no encephalopathy Eyes: EOMI, PERRLA, sclera clear ENT: moist mucous membranes, nasal passages clear Neck: supple, no JVD, no adenopathy, trachea midline Cardiac: Normal S1 and S2. sinus tachycardia, No murmur, gallops or fri
--- NOTE | 2023-05-20 13:43 | PC.NURSE ---
Discharge call back completed, is having some diarrhea, maybe from antibiotic, advised to check in with PMD if need to change if gets worse, understood all instructions
== END 2023-05-19 13:00 | disposition home or self-care (01) ==
LOC: CHSED 14:17 → CHS2ND 16:03
PROVIDERS: Nurse Practitioner Acute Care; Admitting Provider Internal Medicine; Emergency Provider Family Medicine; PCP Family Medicine; Visit Provider Internal Medicine
DX: J96.00 Acute respiratory failure, unspecified whether with hypoxia or hypercapnia (principal); J44.1 Chronic obstructive pulmonary disease with (acute) exacerbation; I10 Essential (primary) hypertension; E05.90 Thyrotoxicosis, unspecified without thyrotoxic crisis or storm; D64.9 Anemia, unspecified; G89.29 Other chronic pain; M54.9 Dorsalgia, unspecified; M81.0 Age-related osteoporosis without current pathological fracture; Z20.822 Contact with and (suspected) exposure to COVID-19; R94.31 Abnormal electrocardiogram [ECG] [EKG]; F17.210 Nicotine dependence, cigarettes, uncomplicated; Z79.82 Long term (current) use of aspirin; Z79.2 Long term (current) use of antibiotics; Z79.51 Long term (current) use of inhaled steroids; Z79.52 Long term (current) use of systemic steroids; Z79.899 Other long term (current) drug therapy
CPT/HCPCS: 36415; 36600; 71045; 80053; 82805; 83036; 83735; 83880; 84484; 85025; 87637; 93005; 96361; 96365; 96366; 96368; 96375; 96376; 99285; A9270; G0378; J2920; J2930; J3475; J3480; J7030

== ENCOUNTER 2023-09-16 08:32 | Outpatient (CLI) | payer MEDICARE, MEDICAID, SELFPAY ==
--- NOTE | ~2023-09-16 | CT_ITS ---
EXAMINATION:CT lung screening DATE: 09/16/2023 08:59 INDICATION: Personal history of nicotine dependence. Current smoker with 45 pack-year history. TECHNIQUE: Computed tomography (CT) of the chest was performed without intravenous contrast. Automate d exposure control and iterative reconstruction technique were employed. The dose-length product (DLP ) was 59.72 mGy-cm. COMPARISON: Chest CT 09/14/2022 FINDINGS: There is mild atelectasis bilaterally. There is mild scarring in paraspinal right lower lob e. A calcified left lung nodule is consistent with old granulomatous disease. No pleural effusion. Th e heart size is normal. There are coronary artery calcifications. No pericardial effusion. There are changes of cholecystectomy. IMPRESSION: 1. Lung-RADS category 2: Benign appearance or behavior. Continue annual screening with noncontrast lo w-dose chest CT in 12 months. Reviewed, dictated and finalized at location A. IMPRESSION: 1. Lung-RADS category 2: Benign appearance or behavior. Continue annual screeni ng with noncontrast low-dose chest CT in 12 months.
== END 2023-09-16 08:33 | disposition home or self-care (01) ==
PROVIDERS: PCP Family Medicine; Visit Provider Nurse Practitioner Family
DX: Z12.2 Encounter for screening for malignant neoplasm of respiratory organs (principal); Z87.891 Personal history of nicotine dependence
CPT/HCPCS: 71271

== ENCOUNTER 2023-11-01 11:38 | Outpatient (CLI) | payer MEDICARE, MEDICAID, SELFPAY ==
--- NOTE | 2023-11-01 11:57 | ECG_ITS ---
Test Date: 2023-11-01 12:04:21 Measurements Intervals [place] Rate: 124 P: 0 OK: 0 QRS: 79 QRSD: 84 T: 64 QT: 303 QTc: 436 Interpretive Statements ATRIAL FIBRILLATION WITH RAPID VENTRICULAR RESPONSE VOLTAGE CRITERIA FOR LVH [MEETS CRITERIA IN ONE OF: R(aVL), S(V1), R(V5), R(V5/V6)+S(V1)] No previous ECG available for comparison Electronically Signed On 11-02-2023 14:33:27 CDT by Elijah Palomo M.D.
[2023-11-01 12:00] LABS: Basophils Absolute Auto 0.03 K/mm3 (0.00-0.10); Basophils Percent Auto 0.6 % (0.0-1.0); Eosinophils Absolute Auto 0.08 K/mm3 (0.02-0.50); Eosinophils Percent Auto 1.7 % (1.0-6.0); Hematocrit 34.6 % (35.0-49.0); Immature Granulocyte Absolute 0.01 K/mm3 (0.00-0.00); Immature Granulocyte Percent A 0.2 % (0.0-0.0); Lymphocytes Absolute Auto 1.42 K/mm3 (1.10-4.50); Lymphocytes Percent Auto 29.8 % (18.0-42.0); Mean Corpuscular HGB Conc 31.8 g/dL (32-36); Mean Corpuscular Hemoglobin 26.8 pg (27.0-31.0); Mean Corpuscular Volume 84.2 fL (78.0-102.0); Mean Platelet Volume 10.4 fl (9.2-11.8); Monocytes Absolute Auto 0.63 K/mm3 (0.10-0.90); Monocytes Percent Auto 13.2 % (2.0-11.0); Neutrophils Absolute Auto 2.59 K/mm3 (1.70-7.20); Neutrophils Percent Auto 54.5 % (50.0-70.0); Platelet Count Result 161 K/mm3 (150-420); Red Blood Count 4.11 M/mm3 (4.20-5.40); Red Cell Distribution Width 13.2 % (11.6-14.4); White Blood Count 4.8 K/mm3 (4.8-10.8)
[2023-11-01 12:41] LABS: Influenza A QL RT-PCR Negative (Negative); Influenza B QL RT-PCR Negative (Negative); RSV RNA, RT-PCR Negative (Negative); SARS-CoV-2 RNA PCR Negative (Negative)
[2023-11-02 18:31] LABS: Alanine Aminotransferase 28 U/L (14-59); Albumin Level 3.1 g/dL (3.4-5.0); Alkaline Phosphatase 97 U/L (46-116); Aspartate Amino Transferase 18 U/L (15-37); Bilirubin,Total 0.6 mg/dL (0.00-1.00); Blood Urea Nitrogen 11 mg/dL (7-18); Calcium 8.5 mg/dL (8.5-10.1); Chloride 105 mmol/L (98-108); Cholesterol 105 mg/dL (0-200); Estimated Glomerular Filt Rate > 60; Glucose 85 mg/dL (70-99); HDL Direct 49 mg/dL (40-60); LDL Cholesterol Calculated 41 mg/dL (<130); Osmolality Calculated 292 mOsm/kg (285-295); Potassium 3.5 mmol/L (3.5-5.1); Sodium 142 mmol/L (136-145); Total Protein 6.6 g/dL (6.4-8.2); Triglycerides 73 mg/dL (0-150); Troponin I 12.1 ng/L (0.00-60.4)
[2023-11-02 19:33] LABS: Anion Gap 11 mmol/L (4-12); Carbon Dioxide 26 mmol/L (21-32)
[2023-11-02 19:35] LABS: Thyroid Stimulating Hormone Reflex < 0.01 u/IU/mL (0.36-3.74)
[2023-11-02 20:04] LABS: Free T4 Free Thyroxine Reflex 3.93 ng/dL (0.76-1.46)
[2023-11-04 17:18] LABS: Adenovirus DNA Not Detected (Not Detected); Chlamydophila pneumoniae Not Detected (Not Detected); Coronavirus 229E Not Detected (Not Detected); Coronavirus HKU1 Not Detected (Not Detected); Coronavirus NL63 Not Detected (Not Detected); Coronavirus OC43 Not Detected (Not Detected); Human Metapneumovirus Not Detected (Not Detected); Human Parainfluenza Virus 1 Not Detected (Not Detected); Human Parainfluenza Virus 2 Not Detected (Not Detected); Human Parainfluenza Virus 3 Not Detected (Not Detected); Human Parainfluenza Virus 4 Not Detected (Not Detected); Human RSV B Not Detected (Not Detected); Influenza A Not Detected (Not Detected); Influenza B Not Detected (Not Detected); Mycoplasma pneumoniae Not Detected (Not Detected); Rhinovirus/Enterovirus Not Detected (Not Detected)
== END 2023-11-01 11:39 | disposition home or self-care (01) ==
LOC: CHSLAB 11:41
PROVIDERS: PCP Nurse Practitioner Family; Visit Provider Nurse Practitioner Family
DX: J44.1 Chronic obstructive pulmonary disease with (acute) exacerbation (principal); E05.90 Thyrotoxicosis, unspecified without thyrotoxic crisis or storm; I10 Essential (primary) hypertension; R07.9 Chest pain, unspecified; I49.9 Cardiac arrhythmia, unspecified; I48.91 Unspecified atrial fibrillation; R94.31 Abnormal electrocardiogram [ECG] [EKG]
CPT/HCPCS: 36415; 80053; 80061; 84439; 84443; 84484; 85025; 87633; 87637; 93005

== ENCOUNTER 2023-11-01 13:48 | Emergency (ER) | payer MEDICARE, MEDICAID, SELFPAY ==
[2023-11-01] VITALS (47 sets, daily range): BP systolic 110–161; BP diastolic 65–97; PULSE 75–149; RESP 14–34; TEMP 36.6; O2SAT 82–96
--- NOTE | ~2023-11-01 | XR_ITS ---
XR chest 1V portable Ordering provider: Reggie Nielsen MD History: 63 years Female with . a fib, sob, cough, wheezing X 1 week . Comparison: May 18, 2023 FINDINGS: MEDIASTINUM: The cardiac silhouette is slightly enlarged. LUNGS: No infiltrates, effusions or pneumothorax. OTHER: No free air under the diaphragm. Degenerative changes of the spine. IMPRESSION: No acute cardiopulmonary pathology. Reviewed, dictated and finalized at location A.
--- NOTE | 2023-11-01 13:55 | ECG_ITS ---
Test Date: 2023-11-01 16:11:52 Measurements Intervals [place] Rate: 97 P: 0 TN: 0 QRS: 70 QRSD: 86 T: 64 QT: 359 QTc: 457 Interpretive Statements ATRIAL FIBRILLATION VOLTAGE CRITERIA FOR LVH [MEETS CRITERIA IN ONE OF: R(aVL), S(V1), R(V5), R(V5/V6)+S(V1)] NONSPECIFIC T-WAVE ABNORMALITY Compared to ECG 11/01/2023 12:04:21 NO LONGER IN RAPID VENTRICULAR RESPONSE Electronically Signed On 11-02-2023 14:34:29 CDT by Elijah Palomo M.D.
--- NOTE | 2023-11-01 13:55 | ED.GENADULT ---
HPI - General Adult General Chief complaint: Arrhythmia/Palpitations Stated complaint: A-fib Time Seen by Provider: 11/01/23 13:51 Source: patient History of Present Illness HPI narrative: 63 years old white female referred to the emergency room by her family physician office because of new onset AFib with RVR. Patient is telling me that she been having productive cough of colored sputum for the last 7 days, history of COPD. Not on oxygen. Lives alone. Disabled. History of hypertension, hypothyroidism and COPD and tobacco dependent. She denies alcohol or marijuana use. Patient reported that shortness of breath has been steady and getting worse on exertion lately. She denies any fever or chills. Related Data Home Medications Medication Instructions Recorded Confirmed methimazole 10 mg tablet 5 mg PO DAILY 11/01/23 11/01/23 Allergies Allergy/AdvReac Type Severity Reaction Status Date / Time No Known Allergies Allergy Verified 11/01/23 13:59 Review of Systems Review of Systems: All systems reviewed & are unremarkable except as noted in HPI and below PMFSH Past Medical History Medical History Anemia Atypical chest pain Colon, diverticulosis COPD (chronic obstructive pulmonary disease) Cough Elevated glucose level Essential (primary) hypertension Exposure to COVID-19 virus Family history of other kidney diseases GERD (gastroesophageal reflux disease) Hyperthyroidism Positive depression screening Sciatica, right side Shortness of breath Tobacco dependence Surgical History Surgical History History of carpal tunnel release History of hysterectomy Hx of cholecystectomy Status post right rotator cuff repair Family History Family History Father Alcoholic Cancer Mother Asthma Diabetes mellitus Hypertension Depression Thyroid disorder Sibling Asthma Thyroid disorder Other Asthma Thyroid disorder Grandparent Cancer Thyroid disorder Grandparent Cancer Daughter Alports syndrome Social History Social History Smoking packs per day: 0.25 Smoking cigarettes per day: 5.0 Years smoked: 45 Smoking pack-years: 11.25 Smoking status: Current every day smoker Tobacco type: cigarettes Second hand tobacco smoke exposure: Yes Additional smoking assessment comments: Smoking 1/4-1/2ppd now. Alcohol intake: former Substance use: former Substance use type: former substance user Do You Feel Safe in your Home?: Yes Lack of Transportation: No Lack of Food: Never True Current Housing: I Have Housing Concerned About Future Housing: No Difficulty Paying Gas/Electric Bills: No Difficulty Paying for Meds: No Currently Unemployed: No Education: High School Diploma/GED Difficulty w/ Childcare or Family Care: No Living arrangements: alone Occupation/Education: other Additional occupation/education comments: Disabled Gender identity (if verbalized by the patient): Female Spiritual care concerns: No Exam Narrative: General appearance: Well-developed, well-nourished Skin: Normal color Head: Normocephalic, nontraumatic Eyes: Clear conjunctiva ENT: Oropharynx normal, ears normal, nose normal Neck: Supple, nontender Chest and respiratory: Airway patent, no respiratory distress, no accessory muscle use Heart: Tachycardia, irregular irregularity Abdomen: Soft, nontender, no organomegaly, quiet bowel sounds Vascular: Normal peripheral pulses, normal capillary refill. Musculoskeletal: Normal range of motion, nontender back Neurologic: Alert and oriented ?3, GENETIC COORDINATOR is normal as tested, no gross motor deficit
[2023-11-01 14:09] LABS: Basophils Absolute Auto 0.03 K/mm3 (0.00-0.10); Basophils Percent Auto 0.6 % (0.0-1.0); Eosinophils Absolute Auto 0.09 K/mm3 (0.02-0.50); Eosinophils Percent Auto 1.9 % (1.0-6.0); Hematocrit 33.2 % (35.0-49.0); Hemoglobin 10.6 g/dL (12.0-15.0); Immature Granulocyte Absolute 0.01 K/mm3 (0.00-0.00); Immature Granulocyte Percent A 0.2 % (0.0-0.0); Lymphocytes Absolute Auto 1.55 K/mm3 (1.10-4.50); Mean Corpuscular HGB Conc 31.9 g/dL (32-36); Mean Corpuscular Hemoglobin 26.4 pg (27.0-31.0); Mean Corpuscular Volume 82.6 fL (78.0-102.0); Mean Platelet Volume 10.4 fl (9.2-11.8); Monocytes Percent Auto 12.4 % (2.0-11.0); Neutrophils Absolute Auto 2.57 K/mm3 (1.70-7.20); Neutrophils Percent Auto 52.9 % (50.0-70.0); Platelet Count Result 159 K/mm3 (150-420); Red Blood Count 4.02 M/mm3 (4.20-5.40); Red Cell Distribution Width 13.2 % (11.6-14.4); White Blood Count 4.9 K/mm3 (4.8-10.8)
[2023-11-01 14:23] LABS: Partial Thromboplastin Time 22.9 Sec (23.9-30.70); Prothrombin Time 11.3 Seconds (9.50-12.1)
[2023-11-01] MEDS: dilTIAZem HCl INJ 25 MG/5 ML VIAL 10 MG IV PUSH (14:24)
[2023-11-01] MEDS: ENOXAPARIN 60 MG/0.6 ML SYRINGE SUB-Q (14:27)
[2023-11-01] MEDS: dilTIAZem 100 MG/100 ML 100 MG/100 ML BAG IV CONT (14:28)
--- NOTE | 2023-11-01 14:52 | PC.NURSE ---
Pt aware of potential transfer due to new onset A-fib. SCOTT Trevino to room to inquire where Pt would like to be transferred. Pt will not answer until she is able to speak with her family. Hector called twice per Pt request with no answer. Message left. Pt requested her daugher be contacted, but there is no contact information in EMR and Pt does not know phone number.
--- NOTE | 2023-11-01 15:09 | PC.NURSE ---
Pt given bedside commode to use restroom. Pt still has not made decision regarding transfer. Pt informed that we did not have any contact information for her daughter and Hector has not returned phone call at this time.
[2023-11-01 15:28] LABS: Alanine Aminotransferase 20 U/L (6-35); Albumin Level 3.5 g/dL (3.5-5.1); Alkaline Phosphatase 80 U/L (38-126); Anion Gap 6 mmol/L (4-12); Aspartate Amino Transferase 27 U/L (14-36); Bilirubin,Total 0.5 mg/dL (0.2-1.3); Blood Urea Nitrogen 12 mg/dL (7-17); Calcium 8.8 mg/dL (8.4-10.2); Carbon Dioxide 30 mmol/L (22-30); Chloride 101 mmol/L (98-107); Estimated CRCL calculation 72 ml/min; Estimated Glomerular Filt Rate > 60; Glucose 130 mg/dL (65-110); Osmolality Calculated 285 mOsm/kg (285-295); Potassium 3.4 mmol/L (3.4-5.0); Sodium 137 mmol/L (137-145)
[2023-11-01 15:40] LABS: NT Pro B Type Natriuretic Pept 2600 pg/mL (19.9-100); Troponin I < 0.012 ng/mL (0.000-0.034)
--- NOTE | 2023-11-01 15:58 | PC.NURSE ---
RN able to contact pt's daughter, Elizabeth, at her place of employment. Elizabeth updated about Pt's condition and plan to transfer.
[2023-11-01 15:59] LABS: Thyroid Stimulating Hormone < 0.015 uIU/mL (0.465-4.680)
--- NOTE | 2023-11-01 16:33 | PC.NURSE ---
Pt becoming agitated about wait times and asking if she can leave and just see a agriculture laboratory technician outpatient. RN explained that the recommendation from ERP is to be admitted for cardiology consult. RN explained that if Pt wished to leave she would have to sign out AMA and explained risks of leaving vs. benefits of staying. Daughter at bedside and is encouraging Pt to wait for transfer. RN explained that we have called multiple different facilities and will transfer to the first available bed. Pt agrees to stay at this time.
--- NOTE | 2023-11-01 16:57 | PC.NURSE ---
[facility] transfer center called back. Pt has been accepted, but no room has been assigned yet. Also waiting on room assignment at [facility]. Will transfer Pt to whichever facility provides a room number first.
--- NOTE | 2023-11-01 17:04 | PC.NURSE ---
Pt's daughter to desk saying that she has just spoken to her aunt, who wants Pt to go to [place] because that is where her corner brace block machine operator is at. RN explained to daughter that both [facility] stated that they were at capacity and could not take Pt's at this time. Daughter aware that Pt can sign out AMA and drive herself to one of the ER's in [place] if she wishes, but there are serious risks to Pt stopping the cardizem drip. Daughter also informed that Pt has been accepted to [facility] too, and we will transfer her to whatever facility gives us a room assignment first. Daughter verbalized understanding and will speak with Pt to try and get her to wait here for transfer.
--- NOTE | 2023-11-01 17:50 | PC.NURSE ---
Pt has been accepted at [facility]. Awaiting callback with room assignment. Pt updated. RN called [facility] and [facility] transfer lines to update them that Pt would no longer need to be transferred to their facilities.
--- NOTE | 2023-11-01 18:18 | PC.NURSE ---
Pt aware of room assignment at [facility]. EMS paged for transfer. Pt updating her daughter via phone.
[2023-11-01 18:33] LABS: Troponin I < 0.012 ng/mL (0.000-0.034)
== END 2023-11-01 19:10 | disposition short-term general hospital (02) ==
PROVIDERS: Emergency Provider Emergency Medicine; PCP Nurse Practitioner Family
DX: I48.20 Chronic atrial fibrillation, unspecified (principal); J44.9 Chronic obstructive pulmonary disease, unspecified; E03.9 Hypothyroidism, unspecified; I10 Essential (primary) hypertension; F17.210 Nicotine dependence, cigarettes, uncomplicated
CPT/HCPCS: 36415; 71045; 80053; 83880; 84443; 84484; 85025; 85610; 85730; 93005; 96365; 96372; 99285; J1650

== ENCOUNTER 2023-11-10 12:54 | Outpatient (NON) | payer MEDICARE, SELFPAY ==
[2023-11-10 13:21] LABS: Add Urine Microscopic? YES; Appearance Urine Clear (Clear); Bilirubin Urine Negative (Negative); Blood Urine Negative (Negative); Color Urine Yellow (Yellow); Glucose Urine UA Negative (Negative); Ketones Urine Negative (Negative); Leukocyte Esterase Ur Negative LEU/UL (Negative); Nitrate Urine Negative (Negative); Protein Urine Trace (Negative)
[2023-11-10 13:30] LABS: Bacteria Urine Rare /hpf; Mucus Urine Few /lpf; RBC Urine None seen /hpf (0-2); Squamous Epithelial Cell Urine Rare /hpf (Few); WBC Urine None seen /hpf (0-3)
== END 2023-11-10 12:55 | disposition home or self-care (01) ==
LOC: CHSLAB 12:55
PROVIDERS: Visit Provider Nurse Practitioner Family
DX: R35.0 Frequency of micturition (principal)
CPT/HCPCS: 81001

== ENCOUNTER 2023-11-18 10:18 | Outpatient (CLI) | payer MEDICARE, SELFPAY ==
[2023-11-18 11:42] LABS: Thyroid Stimulating Hormone Reflex < 0.01 u/IU/mL (0.36-3.74)
[2023-11-18 11:58] LABS: Free T4 Free Thyroxine Reflex 1.62 ng/dL (0.76-1.46)
[2023-11-22 13:58] LABS: Total Triiodothyronine (T3) 235 ng/dL (76-181)
== END 2023-11-18 10:19 | disposition home or self-care (01) ==
LOC: CHSLAB 10:19
PROVIDERS: PCP Nurse Practitioner Family; Visit Provider Nurse Practitioner Family
DX: E05.00 Thyrotoxicosis with diffuse goiter without thyrotoxic crisis or storm (principal)
CPT/HCPCS: 36415; 84439; 84443; 84480

== ENCOUNTER 2023-12-25 13:02 | Outpatient (CLI) | payer MEDICARE, SELFPAY ==
[2023-12-25 14:34] LABS: Free T4 Free Thyroxine 0.51 ng/dL (0.76-1.46)
[2023-12-25 14:51] LABS: Thyroid Stimulating Hormone < 0.01 uIU/mL (0.36-3.74)
[2023-12-27 15:18] LABS: Total Triiodothyronine (T3) 74 ng/dL (76-181)
== END 2023-12-25 13:03 | disposition home or self-care (01) ==
LOC: CHSLAB 13:03
PROVIDERS: PCP Nurse Practitioner Family; Visit Provider Nurse Practitioner Family
DX: E05.90 Thyrotoxicosis, unspecified without thyrotoxic crisis or storm (principal)
CPT/HCPCS: 36415; 84439; 84443; 84480

== ENCOUNTER 2024-02-15 17:34 | Outpatient (CLI) | payer MEDICARE, SELFPAY ==
[2024-02-15 18:20] LABS: Creatinine Urine 222.31 mg/dL (40-278); MALB Creatinine Ratio 36.5 mg/g (0-30); Microalbumin Urine Random 81.3 mg/L
[2024-02-15 18:34] LABS: Alanine Aminotransferase 22 U/L (14-59); Alkaline Phosphatase 187 U/L (46-116); Anion Gap 9 mmol/L (4-12); Aspartate Amino Transferase 16 U/L (15-37); Bilirubin,Total 0.5 mg/dL (0.00-1.00); Blood Urea Nitrogen 30 mg/dL (7-18); Calcium 9.2 mg/dL (8.5-10.1); Carbon Dioxide 29 mmol/L (21-32); Chloride 103 mmol/L (98-108); Estimated Glomerular Filt Rate > 60; Free T4 Free Thyroxine 0.55 ng/dL (0.76-1.46); Glucose 86 mg/dL (70-99); Osmolality Calculated 297 mOsm/kg (285-295); Potassium 4.2 mmol/L (3.5-5.1); Sodium 141 mmol/L (136-145); Thyroid Stimulating Hormone 11.05 uIU/mL (0.36-3.74); Total Protein 7.9 g/dL (6.4-8.2)
[2024-02-17 06:54] LABS: Total Triiodothyronine (T3) 101 ng/dL (76-181)
== END 2024-02-15 17:35 | disposition home or self-care (01) ==
LOC: CHSLAB 17:35
PROVIDERS: PCP Nurse Practitioner Family; Visit Provider Nurse Practitioner Family
DX: R80.9 Proteinuria, unspecified (principal); E05.00 Thyrotoxicosis with diffuse goiter without thyrotoxic crisis or storm
CPT/HCPCS: 36415; 80053; 82043; 84439; 84443; 84480

== ENCOUNTER 2024-03-17 09:33 | Outpatient (CLI) | payer MEDICARE, SELFPAY ==
[2024-03-17 10:59] LABS: Free T4 Free Thyroxine 0.78 ng/dL (0.76-1.46); Thyroid Stimulating Hormone 2.83 uIU/mL (0.36-3.74)
[2024-03-18 06:59] LABS: Total Triiodothyronine (T3) 102 ng/dL (76-181)
== END 2024-03-17 09:34 | disposition home or self-care (01) ==
LOC: CHSLAB 09:34
PROVIDERS: PCP Nurse Practitioner Family; Visit Provider Internal Medicine
DX: E05.00 Thyrotoxicosis with diffuse goiter without thyrotoxic crisis or storm (principal); I48.0 Paroxysmal atrial fibrillation; R80.9 Proteinuria, unspecified
CPT/HCPCS: 36415; 84439; 84443; 84480

== ENCOUNTER 2024-05-18 15:45 | Outpatient (CLI) | payer MEDICARE, SELFPAY ==
--- OUTSIDE RECORDS SUMMARY | 2024-05-18 15:49 | XMS_ITS | Encounter Summary ---
Author Organization [facility] Address [address] [facility] [address] [place] [address] Care Team Providers Care Line Erector Apprentice Name Role Phone Unavailable Primary Care Provider Unavailabl e Encounter Details Date Type Department Care Team (Late st Contact Info) Description 11/01/2023 Hospital Encounter [facility] BED PLANN[facility] [address] [place] [address] Madisyn Cook MD [address] [place] [address] Cardiology Social History Tobacco Use Types Packs/Day Years Used Date Smoking Tobacco: Never Assessed Sex and Gender Information Value Date Recorded Sex Assigned at Not on file Gender Identity Not on file Sexual Orientation Not on file documented as of this encounter Plan of Treatment Not on file documented as of this encounter Visit Diagnoses Diagnosis New onset a-fib (HCC)- Primary Atrial fibrillation New onset a-fib (HCC) Atrial fibrillation Atrial fibrillation with RVR (HCC) Atrial fibrillation Atrial fibrillation with RVR (HCC) Atrial fibrillation documented in this encounter
--- OUTSIDE RECORDS SUMMARY | 2024-05-18 15:49 | XMS_ITS | Referral Summary ---
Author Organization [facility] Address [address] [place] [address] Care Team Providers Care Fur Cutter Name Role Phone Unavailable Primary Care Provider Unavailabl e Source Comments [facility],non-owned Affiliates and Associated Physician Practices is amultiple site organization consisting of ambulatory clinics and hospital sitesin [place], [place], [place] and [place]. This disclosure is being madepursuant to the Care Everywhere program and may not contain all information available regarding this patient. Last updated 17.[facility] Active Problems Problem Noted Date Diagnosed Date New onset a-fib 11/01/2023 Atrial fibrillation with RVR 11/01/2023 Social History Tobacco Use Types Packs/Day Years Used Date Smoking Tobacco: Never Assessed Sex and Gender Information Value Date Recorded Sex Assigned at Not on file Gender Identity Not on file Sexual Orientation Not on file Plan of Treatment Not on file
--- OUTSIDE RECORDS SUMMARY | 2024-05-18 15:49 | XMS_ITS | Patient Health Summary ---
Author Organization [facility] Address [address] [place] [address] Care Team Providers Care Tester Semiconductor Packages Name Role Phone Unavailable Primary Care Provider Unavailabl e Note from [facility],non-owned Affiliates and Associated Physician Practices is amultiple site organization consisting of ambulatory clinics and hospital sitesin [place], [place], [place] and [place]. This disclosure is being madepursuant to the Care Everywhere program and may not contain all information available regarding this patient. Last updated 17.[facility] Active Problems Problem Noted Date Diagnosed Date New onset a-fib 11/01/2023 Atrial fibrillation with RVR 11/01/2023 Social History Tobacco Use Types Packs/Day Years Used Date Smoking Tobacco: Never Assessed Sex and Gender Information Value Date Recorded Sex Assigned at Not on file Gender Identity Not on file Sexual Orientation Not on file
--- OUTSIDE RECORDS SUMMARY | 2024-05-18 15:49 | XMS_ITS | Encounter Summary ---
Author Organization [facility] Address [address] [place] [address] Care Team Providers Care Florist Helper Name Role Phone Chapo Muniz MD Unavailable Unavailab le Nikita Campa MD Primary Care Provider [phone] Encounter Details Date Type Department Care Team (Late st Contact Info) Description 09/03/2018 Abstract SFL CONVERSION [address] [place] [address] , Generic Conversion, Social History Tobacco Use Types Packs/Day Years Used Date Smoking Tobacco: Every Day Cigarettes 0.5 42 Smokeless Tobacco: Never Comments:Pt states she has s moked off and on. Comments Unknown Sex and Gender Information Value Date Recorded Sex Assigned at Not on file Legal Sex Female 5:09 PM CDT Gender Identity Not on file Sexual Orientation Not on file documented as of this encounter Plan of Treatment Not on file documented as of this encounter Visit Diagnoses Not on filedocumented in this encounter Additional Health Concerns Infection Onset Date Last Indicated Resolved Time COVID-19 Rule Out 05/20/2021 05/20/2021 05/20/2021 12:02 PM CHILD STUDY TEAM DIRECTOR documented as of this encounter Care Teams Florist Helper Relationship Specialty Start Date End Date Nikita Campa MD [address] [place] [address] PCP - General FAMILY PRACTICE 04/05/17 Chapo Muniz MD CARDIOVASCULAR DISEASE 04/05/17 documented as of this encounter
--- OUTSIDE RECORDS SUMMARY | 2024-05-18 15:49 | XMS_ITS | Clinical Summary ---
Author Organization [facility] Address [address] [place] [address] Care Team Providers Care Software Product Specialist Name Role Phone Chapo Muniz MD Unavailable Unavailab Nikita Nicole MD Primary Care Provider [phone] Allergies No known active allergies Medications albuterol 1.25 MG/3ML nebulizer solution Inhale 1 ampule into the lungs 2 (two) times daily as needed. 11/23/2016 Active albuterol sulfate HFA (PROAIR HFA) 108 (90 Base) MCG/ACT inhaler Inhale 2 puffs into the lungs 4 (four) times daily as needed. 11/23/2016 Active fluticasone furoate-vilante rol (BREO ELLIPTA) 200-25 MCG/INH inhaler Inhale 1 puff into the lungs daily. 07/27/2017 Active tiotropium (SPIRIVA HANDIHALER) [address] 1 capsule into inhaler and inhale daily. 06/01/2017 Active hydrOXYzine 25 MG tablet Take 1 tablet by mouth 2 (two) times daily. Active losartan 100 MG tablet Take 1 tablet (100 mg total) by mouth daily. Active traZODone 100 MG tablet Take 100 mg by mouth nightly at bedtime. Active diclofenac EC 50 MG tablet Take 1 tablet (50 mg total) by mouth 3 (three) times daily. Active methIMAzole (TAPAZOLE) 5 MG tablet Take 2 mg by mouth daily. Active Active Problems Problem Noted Date Diagnosed Date Non-traumatic rotator cuff tear, right 0 Rotator cuff tendinitis, right 10/31/2019 Family History Medical History Relation Comments No Known Problems Brother Cancer Father Heart Disease Maternal Grandfather Arthritis Maternal Grandmother Heart Disease Maternal Grandmother Diabetes Maternal Uncle Diabetes Mother Hypertension Mother No Known Problems Paternal Grandfather No Known Problems Paternal Grandmother No Known Problems Sister Relation Status Comments Brother Alive Father Maternal Grandfather Maternal Grandmother Maternal Uncle Alive Mother Paternal Grandfather Paternal Grandmother Sister Alive Social History Tobacco Use Types Packs/Day Years Used Date Smoking Tobacco: Every Day Cigarettes 0.5 42 Smokeless Tobacco: Never Tobacco Cessation:Ready to Q uit: Not Asked; Counseling Given: Not Answered Comments:Pt states she has smoked off and on. Alcohol Use Standard Drinks/Week Comments Never 0 (1 standard drink = 0.6 oz pur e alcohol) Comments No Sex and Gender Information Value Date Recorded Sex Assigned at Not on file Legal Sex Female 5:09 PM CDT Gender Identity Not on file Sexual Orientation Not on file Last Filed Vital Signs Vital Sign Reading Time Taken Comments Blood Pressure 145/93 05/24/2023 10:54 AM MANAGER EQUITY Pulse 91 05/24/2023 10:54 AM MANAGER EQUITY Temperature 36.2 C (97.2 F) 05/24/2023 9:06 AM MANAGER EQUITY Respiratory Rate 18 05/24/2023 9:06 AM MANAGER EQUITY Oxygen Saturation 92% 05/24/2023 10:54 AM MANAGER EQUITY Inhaled Oxygen Concentration - - Weight 58.1 kg (128 lb) 05/14/2023 1:23 PM MANAGER EQUITY Height 157.5 cm (5' 2 ) 05/14/2023 1:23 PM MANAGER EQUITY Body Mass Index 23.41 05/14/2023 1:23 PM MANAGER EQUITY Plan of Treatment Health Maintenance Due Date Last Done Comments Cervical Cancer Screening Pa p Smear (Age 30 to 64) Every 3 Years 1960 Colorectal Cancer Screening Colonoscopy (10 Years) 1960 Annual Physical 1963 Pneumococcal Vaccine: Pediatrics (0 to 5 Years) and At-Risk Patients (6 to 64 Years) (1 of 2 - PCV) 1966 Hepatitis C 1978 DTaP, Tdap and Td Vaccines ( 1 - Tdap) 1979 Cervical Cancer Screening Pa p with HPV Testing (Age 30 to 64) Every 5 Years 1990 Cervical Cancer Screening wi th HPV 1990 Mammogram Screening 2000 Lung Cancer Screening 2010 Zoster Vaccines (1 of 2) 2010 COVID-19 Vaccine (2023-2 5 season) 2023 Influenza Adult (#1) 2023 04/16/2021, 04/14/2017 RSV Immunization or 60+ Years (1 - 1-dose 75+ series) 2035 Meningococcal B Vaccine Aged Out No l onger eligible based on patient's age to complete this topic Meningococcal Vaccine Aged Out No rubén arpit eligible based on patient's age to complete this topic RSV Immunizations Under 20 Months Aged Out No longer eligible b ased on patient's age to complete this topic Medical Devices Implanted Type Area Motor Block Mechanic Device Identifier Shelf Expiration Date Model / Serial / Lot 1-Piece Iol With Tecnis Simplicity Delivery System Implanted:Qty: 1 on 05/24/2023 by Waylon Kim MD at [facility] Left: Eye 10/18/2025 / [id number] / [id number] Insurance MEDICAID MEDICAID [facility] Care Teams Software Product Specialist Relationship Specialty Start Date End Date Nikita Campa MD [address] [place] [address] PCP - General FAMILY PRACTICE 04/05/17 Chapo Muniz MD CARDIOVASCULAR DISEASE 04/05/17
--- OUTSIDE RECORDS SUMMARY | 2024-05-18 15:49 | XMS_ITS | Clinical Summary ---
Author Organization [facility] Address [address] [place] [address] Care Team Providers Care Night Order Selector Name Role Phone Unavailable Primary Care Provider Unavailabl e Source Comments [facility],non-owned Affiliates and Associated Physician Practices is amultiple site organization consisting of ambulatory clinics and hospital sitesin [place], [place], [place] and [place]. This disclosure is being madepursuant to the Care Everywhere program and may not contain all information available regarding this patient. Last updated 17.[facility] [employer] Active Problems Problem Noted Date Diagnosed Date New onset a-fib 11/01/2023 Atrial fibrillation with RVR 11/01/2023 Social History Tobacco Use Types Packs/Day Years Used Date Smoking Tobacco: Never Assessed Sex and Gender Information Value Date Recorded Sex Assigned at Not on file Gender Identity Not on file Sexual Orientation Not on file Plan of Treatment Health Maintenance Due Date Last Done Comments COLOGUARD (AGES 45-75) - COL ON CA SCREENING 1960 COLON MONITORING 1960 COLONOSCOPY - COLON CA SCREENING 1960 CT COLONOGRAPHY - COLON CA SCREENING 1960 Colorectal Cancer Screening 1960 FIT - COLON CA SCREENING 1960 FLEX SIG - COLON CA SCREENING 1960 LIPID TESTING 1960 MAMMOGRAM 1960 PAP SMEAR 1960 HIV SCREENING 1975 HEPATITIS C SCREENING 05/18/1978 DTAP/TDAP/TD VACCINES (1 - Tdap) 1979 PNEUMOCOCCAL VACCINE 50+ (1 of 1 - PCV) 2010 ZOSTER VACCINE (1 of 2) 2010 COVID-19 VACCINE (1 - 2023-2 5 season) 2023 INFLUENZA VACCINE (#1) 2023 DEPRESSION SCREENING 03/29/2024 Respiratory Syncytial Virus (RSV) Vaccine Pt: or over 60 yrs (1 - 1-dose 75+ series) 2035 HEPATITIS B VACCINE Aged Out No longe r eligible based on patient's age to complete this topic HIB VACCINE Aged Out No longer eligi ble based on patient's age to complete this topic HPV VACCINE Aged Out No longer eligi ble based on patient's age to complete this topic MENINGOCOCCAL (Group B) VACCINE Aged Out No longer eligible based on patient's age to complete this topic MENINGOCOCCAL VACCINE Aged Out No rubén arpit eligible based on patient's age to complete this topic PNEUMOCOCCAL VACCINE Aged Out No long er eligible based on patient's age to complete this topic
[2024-05-18 16:29] LABS: Creatinine Urine 137.19 mg/dL (40-278); MALB Creatinine Ratio 31.6 mg/g (0-30); Microalbumin Urine Random 43.4 mg/L
[2024-05-18 17:25] LABS: Free T4 Free Thyroxine 0.87 ng/dL (0.76-1.46); Thyroid Stimulating Hormone 2.06 uIU/mL (0.36-3.74)
[2024-05-20 03:23] LABS: Total Triiodothyronine (T3) 131 ng/dL (76-181)
== END 2024-05-18 15:46 | disposition home or self-care (01) ==
LOC: CHSLAB 15:46
PROVIDERS: PCP Nurse Practitioner Family; Visit Provider Nurse Practitioner Family
DX: R80.9 Proteinuria, unspecified (principal); E05.90 Thyrotoxicosis, unspecified without thyrotoxic crisis or storm
CPT/HCPCS: 36415; 82043; 84439; 84443; 84480

== ENCOUNTER 2024-07-13 10:59 | Emergency (ER) | payer MEDICARE, MEDICAID, SELFPAY ==
[2024-07-13] VITALS (21 sets, daily range): BP systolic 71–105; BP diastolic 47–66; PULSE 72–85; RESP 12–28; TEMP 36.8–36.9; O2SAT 90–100
--- NOTE | ~2024-07-13 | XR_ITS ---
Portable chest x-ray Comparison: 11/01/2023 Clinical History: Dyspnea Findings: Suspected mild hazy airspace disease right middle lobe. Left lung clear. Cardiomediastinal silhouette is stable. Bones and soft tissues are unremarkable. Impression: Suspected subtle right middle lobe pneumonia. Reviewed, dictated and finalized at location . Impression: Suspected subtle right middle lobe pneumonia.
--- NOTE | 2024-07-13 11:13 | ECG_ITS ---
Test Date: 2024-07-13 11:50:02 Measurements Intervals [place] Rate: 80 P: -1 SD: 125 QRS: 24 QRSD: 99 T: 58 QT: 374 QTc: 432 Interpretive Statements SINUS RHYTHM DELAYED PRECORDIAL R/S TRANSITION CONSIDER INFERIOR INFARCT, AGE INDETERMINATE ABNORMAL ECG Compared to ECG 11/01/2023 16:11:52 ATRIAL FIBRILLATION NO LONGER PRESENT Electronically Signed On 07-13-2024 11:59:05 CDT by Brandon Weinstein D.O.
[2024-07-13] MEDS: IPRATROPIUM 0.5 MG/ALBUTEROL SULFATE 2.5 MG AMPUL.NEB 3 ML INHALATION (11:33)
--- NOTE | 2024-07-13 11:45 | PC.NURSE ---
ERP notified of patient's decreased BP
[2024-07-13 11:51] LABS: Hematocrit 40.4 % (35.0-49.0); Mean Corpuscular HGB Conc 32.2 g/dL (32-36); Mean Corpuscular Hemoglobin 29.5 pg (27.0-31.0); Mean Corpuscular Volume 91.6 fL (78.0-102.0); Mean Platelet Volume 9.8 fl (9.2-11.8); Platelet Count Result 190 K/mm3 (150-420); Red Blood Count 4.41 M/mm3 (4.20-5.40); Red Cell Distribution Width 12.2 % (11.6-14.4)
[2024-07-13] MEDS: methylPREDNISolone SOD SUCC 125 MG VIAL IV PUSH (11:51)
[2024-07-13 11:53] LABS: White Blood Count 21.1 K/mm3 (4.8-10.8)
--- OUTSIDE RECORDS SUMMARY | 2024-07-13 11:55 | XMS_ITS | Encounter Summary ---
Author Organization [facility] Address [address] [place] [address] Care Team Providers Care Monument Setter Name Role Phone Chapo Muniz MD Unavailable Unavailab le Nikita Campa MD Primary Care Provider [phone] Encounter Details Date Type Department Care Team (Late st Contact Info) Description 09/03/2018 Abstract SFL CONVERSION [address] [place] [address] , Generic Conversion, Social History Tobacco Use [...] Rule Out 05/20/2021 05/20/2021 05/20/2021 12:02 PM HUMAN RESOURCES GENERALIST documented as of this encounter Care Teams Monument Setter Relationship Specialty Start Date End Date Nikita Campa MD [address] [place] [address] PCP - General FAMILY PRACTICE 04/05/17 Chapo Muniz MD CARDIOVASCULAR DISEASE 04/05/17 documented as of this encounter
--- OUTSIDE RECORDS SUMMARY | 2024-07-13 11:55 | XMS_ITS | Clinical Summary ---
Author Organization [facility] Address [address] [place] [address] Care Team Providers Care Accounting Practice Manager Name Role Phone Unavailable Primary Care Provider Unavailabl e Source Comments [facility],non-owned Affiliates and Associated Physician Practices is amultiple site organization consisting of ambulatory clinics and hospital sitesin [place], [place], [place] and [place]. This disclosure is being madepursuant to the Care Everywhere program and may not contain all information available regarding this patient. Last updated 17.[facility] [employer] Active Problems Problem Noted Date Diagnosed Date New onset a-fib 11/01/2023 Atrial fibrillation with RVR 11/01/2023 Social History Tobacco Use Types Packs/Day Years Used Date Smoking Tobacco: Never Assessed Comments Unknown Sex and Gender Information Value Date Recorded Sex Assigned at Not on file Legal Sex Female 7:10 AM CDT Gender Identity Not on file Sexual [...] VACCINE (1 - 2023-2 5 season) 2023 DEPRESSION SCREENING 03/29/2024 INFLUENZA VACCINE (Season Ended) 2024 Respiratory Syncytial Virus (RSV) Vaccine Pt: or [...] to complete this topic MENINGOCOCCAL (Group B) VACC INE SHARED DECISION-MAKING Aged Out No longer eligibl e based on patient's age to complete this topic MENINGOCOCCAL GROUPS A/C/Y/W VACCINE Aged Out No longer eligible b ased on patient's age to complete this topic Insurance
--- OUTSIDE RECORDS SUMMARY | 2024-07-13 11:55 | XMS_ITS | Clinical Summary ---
Author Organization [facility] Address [address] [place] [address] Care Team Providers Care Mica Builder Name Role Phone Chapo Muniz MD Unavailable Unavailab Nikita Nicole MD Primary Care Provider [phone] Allergies No known active allergies Medications albuterol [...] Comments Blood Pressure 145/93 05/24/2023 10:54 AM ARCHIVIST POLITICAL HISTORY Pulse 91 05/24/2023 10:54 AM ARCHIVIST POLITICAL HISTORY Temperature 36.2 C (97.2 F) 05/24/2023 9:06 AM ARCHIVIST POLITICAL HISTORY Respiratory Rate 18 05/24/2023 9:06 AM ARCHIVIST POLITICAL HISTORY Oxygen Saturation 92% 05/24/2023 10:54 AM ARCHIVIST POLITICAL HISTORY Inhaled Oxygen Concentration - - Weight 58.1 kg (128 lb) 05/14/2023 1:23 PM ARCHIVIST POLITICAL HISTORY Height 157.5 cm (5' 2 ) 05/14/2023 1:23 PM ARCHIVIST POLITICAL HISTORY Body Mass Index 23.41 05/14/2023 1:23 PM ARCHIVIST POLITICAL HISTORY Plan of Treatment Health Maintenance Due Date Last Done Comments Cervical Cancer Screening Pa p Smear (Age 30 to 64) Every 3 Years 1960 Colorectal Cancer Screening Colonoscopy (10 Years) 1960 Annual Physical 1963 Hepatitis C 1978 DTaP, Tdap and Td Vaccines ( 1 - Tdap) 1979 Pneumococcal Vaccine: 50+ Ye ars (1 of 2 - PCV) 1979 Cervical Cancer Screening Pa p with HPV Testing (Age 30 to 64) Every 5 Years 1990 Cervical Cancer Screening with HPV 1990 Mammogram Screening 2000 Zoster Vaccines (1 of 2) 2010 COVID-19 Vaccine (2023-2 5 season) 2023 RSV Immunization or 60+ Years (1 - 1-dose 75+ series) 2035 Meningococcal B Vaccine Aged Out No l onger eligible based on patient's age to complete this topic Meningococcal Vaccine Aged Out No rubén arpit eligible based on patient's age to complete this topic RSV Immunizations Under 20 Months Aged Out No longer eligible based on patient's age to complete this topic Medical Devices Implanted Type Area Fish Filleter Device Identifier Shelf Expiration Date Model / Serial / Lot 1-Piece Iol With Tecnis Simplicity Delivery System Implanted:Qty: 1 on 05/24/2023 by Waylon Kim MD at [facility] Left: Eye 10/18/2025 / [id number] / [id number] Insurance MEDICAID MEDICAID Member Subscriber Plan / Payer (Ef fective 2017-Present) Name:Mercy Pereira Relation to Subscriber:Self Name:MERCY PEREIRA Payer ID:Not on file Group ID:Not on file Type:Not on file Address: [address] Care Teams Mica Builder Relationship Specialty Start Date End Date Nikita Campa MD [address] [place] [address] PCP - General FAMILY PRACTICE 04/05/17 Chapo Muniz MD CARDIOVASCULAR DISEASE 04/05/17
--- OUTSIDE RECORDS SUMMARY | 2024-07-13 11:55 | XMS_ITS | Encounter Summary ---
Author Organization [facility] Address [address] [place] [address] Care Team Providers Care Charging Machine Operator Name Role Phone Unavailable Primary Care Provider Unavailabl e Encounter Details Date Type Department Care Team (Late st Contact Info) Description 11/01/2023 Hospital Encounter [facility] BED [facility] [address] [place] [address] Madisyn Cook MD [address] [place] [address] Cardiology Social History Tobacco Use Types Packs/Day [...]
[2024-07-13 11:58] LABS: Band Neutrophils Percent 7 % (0-6); Lymphocytes Absolute Manual 1.89 K/mm3 (1.1-4.5); Lymphocytes Percent Manual 9 % (18-44); Monocytes Absolute Manual 1.68 K/mm3 (0.1-0.90); Monocytes Percent Manual 8 % (3-9); Neutrophils Absolute Manual 17.51 K/mm3 (1.7-7.2); Neutrophils Percent Manual 76 % (46-73); Total Cells Counted 100
[2024-07-13 11:59] LABS: Platelet Estimate Adequate (Adequate)
[2024-07-13] MEDS: SODIUM CHLORIDE 0.9% IV 1,000 ML 999 ML IV CONT ×2 (12:01→12:02)
[2024-07-13 12:03] LABS: D Dimer 0.43 mg/L (0.19-0.50); INR 1.4; Partial Thromboplastin Time 34.7 Sec (23.9-30.70); Prothrombin Time 14.6 Seconds (9.50-12.1)
--- NOTE | 2024-07-13 12:04 | PC.NURSE ---
per ERP hold magnesium IV until pressure comes back up.
[2024-07-13 12:12] LABS: Lactic Acid Reflex 3.4 mmol/L (0.4-2.0)
[2024-07-13 12:13] LABS: Alanine Aminotransferase 9 U/L (14-59); Albumin Level 3.4 g/dL (3.4-5.0); Alkaline Phosphatase 98 U/L (46-116); Anion Gap 10 mmol/L (4-12); Aspartate Amino Transferase < 10 U/L (15-37); Bilirubin,Total 2.1 mg/dL (0.00-1.00); Blood Urea Nitrogen 26 mg/dL (7-18); Calcium 8.1 mg/dL (8.5-10.1); Carbon Dioxide 27 mmol/L (21-32); Chloride 98 mmol/L (98-108); Estimated CRCL calculation 32 ml/min; Estimated Glomerular Filt Rate 35; Glucose 151 mg/dL (70-99); Magnesium 1.5 mg/dL (1.8-2.4); NT Pro B Type Natriuretic Pept 7427 pg/mL (0-125); Osmolality Calculated 287 mOsm/kg (285-295); Potassium 3.2 mmol/L (3.5-5.1); Sodium 135 mmol/L (136-145); Total Protein 8.3 g/dL (6.4-8.2); Troponin I 7.2 ng/L (0.00-60.4)
--- OUTSIDE RECORDS SUMMARY | 2024-07-13 12:38 | XMS_ITS | Clinical Summary ---
Author Organization [facility] Address [address] [place] [address] Care Team Providers Care Server Engineer Name Role Phone Chapo Muniz MD Unavailable Unavailab Nikita Nicole MD Primary Care Provider [phone] Allergies No known active allergies Medications albuterol [...] Comments Blood Pressure 145/93 05/24/2023 10:54 AM SPECIAL SYSTEMS TECHNICIAN Pulse 91 05/24/2023 10:54 AM SPECIAL SYSTEMS TECHNICIAN Temperature 36.2 C (97.2 F) 05/24/2023 9:06 AM SPECIAL SYSTEMS TECHNICIAN Respiratory Rate 18 05/24/2023 9:06 AM SPECIAL SYSTEMS TECHNICIAN Oxygen Saturation 92% 05/24/2023 10:54 AM SPECIAL SYSTEMS TECHNICIAN Inhaled Oxygen Concentration - - Weight 58.1 kg (128 lb) 05/14/2023 1:23 PM SPECIAL SYSTEMS TECHNICIAN Height 157.5 cm (5' 2 ) 05/14/2023 1:23 PM SPECIAL SYSTEMS TECHNICIAN Body Mass Index 23.41 05/14/2023 1:23 PM SPECIAL SYSTEMS TECHNICIAN Plan of Treatment Health Maintenance Due Date [...] this topic Medical Devices Implanted Type Area X Ray Service Engineer Device Identifier Shelf Expiration Date Model / Serial / Lot 1-Piece Iol With Tecnis Simplicity Delivery System Implanted:Qty: 1 on 05/24/2023 by Waylon Kim MD at [facility] Left: Eye 10/18/2025 / [id number] / [id number] Insurance MEDICAID MEDICAID Member Subscriber Plan / Payer (Ef fective 2017-Present) Name:Mercy Pereira Relation to Subscriber:Self Name:MERCY PEREIRA Payer ID:Not on file Group ID:Not on file Type:Not on file Address: [address] [place] [address] Care Teams Server Engineer Relationship Specialty Start Date End Date Nikita Campa MD [address] [place] [address] PCP - General FAMILY PRACTICE 04/05/17 Chapo Muniz MD CARDIOVASCULAR DISEASE 04/05/17
--- OUTSIDE RECORDS SUMMARY | 2024-07-13 12:38 | XMS_ITS | Encounter Summary ---
Author Organization [facility] Address [address] [place] [address] Care Team Providers Care Branch Account Manager Name Role Phone Unavailable Primary Care Provider Unavailabl e Encounter Details Date Type Department Care Team (Late st Contact Info) Description 11/01/2023 Hospital Encounter [facility] BED [facility]ANN[facility] [address] [place] [address] Madisyn Cook MD [address] [place] [address] Cardiology Social History Tobacco Use Types Packs/Day [...]
--- OUTSIDE RECORDS SUMMARY | 2024-07-13 12:38 | XMS_ITS | Clinical Summary ---
Author Organization [facility] Address [address] [address] Care Team Providers Care Fixed Wing Aircraft Crew Chief Name Role Phone Unavailable Primary Care Provider Unavailabl e Source Comments [facility],non-owned Affiliates and Associated Physician Practices is amultiple site organization consisting of ambulatory clinics and hospital sitesin [place], [place], [place] and [place]. This disclosure is being madepursuant to the Care Everywhere program and may not contain all information available regarding this patient. Last updated 17.[facility] [employer] Active Problems Problem Noted Date Diagnosed Date [...]
--- OUTSIDE RECORDS SUMMARY | 2024-07-13 12:38 | XMS_ITS | Encounter Summary ---
Author Organization [facility] Address [address] [place] [address] Care Team Providers Care Fishing Boat Mate Name Role Phone Chapo Muniz MD Unavailable Unavailab le Nikita Campa MD Primary Care Provider [phone] Encounter Details Date Type Department Care Team (Late st Contact Info) Description 09/03/2018 Abstract SFL CONVERSION [address] [place] [address] , Generic Conversion, Social History Tobacco Use [...] Rule Out 05/20/2021 05/20/2021 05/20/2021 12:02 PM BOILERMAKER APPRENTICE documented as of this encounter Care Teams Fishing Boat Mate Relationship Specialty Start Date End Date Nikita Campa MD [address] [place] [address] PCP - General FAMILY PRACTICE 04/05/17 Chapo Muniz MD CARDIOVASCULAR DISEASE 04/05/17 documented as of this encounter
[2024-07-13 12:54] LABS: Add Urine Microscopic? YES; Appearance Urine Clear (Clear); Bilirubin Urine Negative (Negative); Blood Urine Negative (Negative); Color Urine Light Yellow (Yellow); Glucose Urine UA Negative (Negative); Ketones Urine Negative (Negative); Leukocyte Esterase Ur Trace LEU/UL (Negative); Nitrate Urine Negative (Negative); Protein Urine Negative (Negative); Specific Grav Ur <= 1.005 (1.010-1.020); Urobilinogen Urine 0.2 mg/dL (0.2-1.0); pH Urine 5.5 (5.0-8.0)
[2024-07-13 12:59] LABS: Bacteria Urine Rare /hpf; RBC Urine None seen /hpf (0-2); Squamous Epithelial Cell Urine Occasional /hpf (Few); WBC Urine 0-3 /hpf (0-3)
[2024-07-13] MEDS: AZITHROMYCIN 500 MG/NS 250 ML 500 MG/250 ML BAG 250 MG IVPB (13:13)
--- NOTE | 2024-07-13 13:20 | ED_ITS ---
HPI - SOB/Dyspnea General Chief Complaint: Shortness of Breath/Dyspnea Stated Complaint: chest pain Time Seen by Provider: 07/13/24 11:12 Source: patient Mode of arrival: ambulatory Limitations: no limitations History of Present Illness HPI Narrative: this is a 64-year-old female with history of COPD, hypertension and history of hyperthyroidism presents with a 2 day history of cough congestion with shortness of breath or audible wheezing her shortness of breath had progressively worse over the last couple of hours they brought her into the emergency department. There was a mild cough with audible wheezing with some patient afebrile with no chest pain denies pain no dysuria no nausea vomiting no diarrhea constipation. MD elicited complaint: shortness of breath and cough Pertinent past history: COPD Onset (ago): day(s) Context: recent illness Severity: moderate Known history of: COPD Related Data Allergies Allergy/AdvReac Type Severity Reaction Status Date / Time No Known Allergies Allergy Verified 07/13/24 12:10 Review of Systems 2 Review of Systems: All systems reviewed & are unremarkable except as noted in HPI and below PMFSH Past Medical History Medical History Atrial fibrillation with rapid ventricular response Hyperthyroidism Colon, diverticulosis Anemia Sciatica, right side COPD (chronic obstructive pulmonary disease) Atypical chest pain Family history of other kidney diseases GERD (gastroesophageal reflux disease) Elevated glucose level Shortness of breath Cough Exposure to COVID-19 virus Positive depression screening Tobacco dependence Essential (primary) hypertension Surgical History Surgical History Hx of cholecystectomy History of hysterectomy History of carpal tunnel release Status post right rotator cuff repair Family History Family History Father Alcoholic Cancer Mother Asthma Diabetes mellitus Hypertension Depression Thyroid disorder Sibling Asthma Thyroid disorder Other Asthma Thyroid disorder Grandparent Cancer Thyroid disorder Grandparent Cancer Daughter Alports syndrome Social History Social History Smoking packs per day: 0.25 Smoking cigarettes per day: 5.0 Years smoked: 45 Smoking pack-years: 11.25 Smoking status: Current every day smoker Tobacco type: cigarettes Second hand tobacco smoke exposure: Yes Additional smoking assessment comments: Smoking 1/4-1/2ppd now. Alcohol intake: former Substance use: former Substance use type: former substance user Do You Feel Safe in your Home?: Yes Lack of Transportation: No Lack of Food: Never True Current Housing: I Have Housing Concerned About Future Housing: No Difficulty Paying Gas/Electric Bills: No Difficulty Paying for Meds: No Currently Unemployed: No Education: High School Diploma/GED Difficulty w/ Childcare or Family Care: No Living arrangements: alone Occupation/Education: other Additional occupation/education comments: Disabled Gender identity (if verbalized by the patient): Female Spiritual care concerns: No Exam 2 Const: General: healthy appearing and no acute distress Nutritional Appearance: well nourished Orientation/consciousness: patient oriented x3 Limitations: no limitations HENMT: Head: normal to inspection Eyes: Conjunctivae: conjunctivae normal EOM: EOMs intact bilaterally D irect Ophthalmoscopy: no photophobia Neck: Neck: normal visual inspection Chest: Chest palpation & inspection: normal inspection of the chest Resp: Effort & Inspection: normal respiratory effort Auscultation: wheezes Cardio: Rate: regular rate Rhythm: regular rhythm GI: GI Palp: Yes Soft to palpation Auscultation: normal bowel sounds : General: Yes bladder normal to palpation Urinary Catheter: Urinary Catheter: patent and draining Skin: General skin exam: normal color Rashes: no rashes Neuro: General: patient oriented x3 Extrem: General: normal to inspection Psych: Mental Status: mental status grossly normal Course Course Emergency Course: Patient with history of COPD had chest x-ray performed which shows that she has pneumonia left lower with a white count 21686 lactic acid of 3.4, the patient had a BNP of over 7000, blood pressure initially 96 over 65 has received IV fluids and started on ceftriaxone along with azithromycin. Patient received a breathing treatment with DuoNebs and started on Solu-Medrol. Vital Signs Vital signs: Vital Signs Temperature 36.9 C 07/13/24 10:59 Pulse Rate 85 07/13/24 10:59 Respiratory Rate 12 07/13/24 10:59 Blood Pressure 96/65 L 07/13/24 10:59 Pulse Oximetry 93 07/13/24 10:59 Oxygen Delivery Room Air 07/13/24 10:59 Temperature 36.9 C 07/13/24 10:59 Pulse Rate 82 07/13/24 13:16 Respiratory Rate 20 07/13/24 13:16 Blood Pressure 99/54 L 07/13/24 13:15 Pulse Oximetry 97 07/13/24 13:16 Oxygen Delivery Nasal Cannula 07/13/24 13:15 Oxygen Flow Rate 2 07/13/24 13:15 MDM - SOB/Dyspnea Lab Data 07/13/24 11:45 07/13/24 11:45 Labs: Lab Results 07/13/24 07/13/24 Range/Units 11:45 12:49 WBC 21.1 H* (4.8-10.8) K/mm3 RBC 4.41 (4.20-5.40) M/mm3 Hgb 13.0 (12.0-15.0) g/dL Hct 40.4 (35.0-49.0) % MCV 91.6 (78.0-102.0) fL MCH 29.5 (27.0-31.0) pg MCHC 32.2 (32-36) g/dL RDW 12.2 (11.6-14.4) % Plt Count 190 (150-420) K/mm3 MPV 9.8 (9.2-11.8) fl Immature Gran % (Auto) Not Reportable Neut % (Auto) Not Reportable Lymph % (Auto) Not Reportable Coke % (Auto) Not Reportable Eos % (Auto) Not Reportable Baso % (Auto) Not Reportable Lymph # (Auto) Not Reportable Coke # (Auto) Not Reportable Eos # (Auto) Not Reportable Baso # (Auto) Not Reportable Abs Immat Gran (auto) Not Reportable Absolute Neuts (auto) Not Reportable Absolute Nucleated RBC Not Reportable Total Counted 100 Neutrophils % (Manual) 76 H (46-73) % Band Neutrophils % 7 H (0-6) % Lymphocytes % (Manual) 9 L (18-44) % Monocytes % (Manual) 8 (3-9) % Nucleated RBC % Not Reportable Abs Neuts (Manual) 17.51 H (1.7-7.2) K/mm3 Abs Lymphs (Manual) 1.89 (1.1-4.5) K/mm3 Abs Monocytes (Manual) 1.68 H (0.1-0.90) K/mm3 Platelet Estimate Adequate (Adequate) Schistocytes Not Reportable PT 14.6 H (9.50-12.1) Seconds INR 1.4 APTT 34.7 H (23.9-30.70) Sec D-Dimer 0.43 (0.19-0.50) mg/L Sodium 135 L (136-145) mmol/L Potassium 3.2 L (3.5-5.1) mmol/L Chloride 98 (98-108) mmol/L Carbon Dioxide 27 (21-32) mmol/L Anion Gap 10 (4-12) mmol/L BUN 26 H (7-18) mg/dL Creatinine 1.49 H (0.55-1.02) mg/dL Estim Creat Clear Calc 32 ml/min Estimated GFR 35 L (59 - ) Glucose 151 H (70-99) mg/dL Calculated Osmolality 287 (285-295) mOsm/kg Lactic Acid 3.4 H (0.4-2.0) mmol/L Calcium 8.1 L (8.5-10.1) mg/dL Magnesium 1.5 L (1.8-2.4) mg/dL Total Bilirubin 2.1 H (0.00-1.00) mg/dL AST < 10 L (15-37) U/L ALT 9 L (14-59) U/L Alkaline Phosphatase 98 (46-116) U/L Troponin I 7.2 (0.00-60.4) ng/L NT-Pro-B Natriuret Pep 7427 H (0-125) pg/mL Total Protein 8.3 H (6.4-8.2) g/dL Albumin 3.4 (3.4-5.0) g/dL Urine Color Light yellow (Yellow) Urine Appearance Clear (Clear) Urine pH 5.5 (5.0-8.0) Ur Specific Taylors <= 1.005 L (1.010-1.020) Urine Protein Negative (Negative) Urine Glucose (UA) Negative (Negative) Urine Ketones Negative (Negative) Ur Blood (Man) Negative (Negative) Urine Nitrate Negative (Negative) Urine Bilirubin Negative (Negative) Urine Urobilinogen 0.2 (0.2-1.0) mg/dL Leukocyte Esterase Rfl Trace H (Negative) HUNG/UL Urine RBC None seen (0-2) /hpf Urine WBC 0-3 (0-3) /hpf Ur Squamous Epith Cells Occasional (Few) /hpf Urine Bacteria Rare (None) /hpf Critical Care Time Critical Care Time Critical Care Time: No Discharge Plan Discharge Clinical Impression: COPD (chronic obstructive pulmonary disease) Qualifiers: COPD type: unspecified COPD Qualified Code(s): J44.9 - Chronic obstructive pulmonary disease, unspecified Pneumonia Qualifiers: Pneumonia type: due to unspecified organism Laterality: right Lung location: m iddle lobe of lung Qualified Code(s): J18.9 - Pneumonia, unspecified organism Patient Disposition: Acute Care Hospital Condition: Stable Patient Language: Citizen Of [place] Prescriptions: No Action ipratropium bromide 0.02 % solution 2.5 ml inhalation Q6H PRN (Reason: shortness of breath or wheezing) Qty: 300 5RF albuterol sulfate 2.5 mg /3 mL (0.083 %) solution for nebulization 2.5 mg inhalation BID PRN (Reason: shortness of breath or wheezing) Qty: 180 5RF formoterol fumarate [Perforomist] 20 mcg/2 mL solution for nebulization 2 ml inhalation BID Qty: 120 5RF albuterol sulfate 90 mcg/actuation HFA aerosol inhaler 1 - 2 inh inhalation Q4-6H PRN (Reason: shortness of breath or wheezing) Qty: 8.5 2RF methimazole 5 mg tablet 5 mg PO DAILY Qty: 240 2RF losartan 100 mg tablet See Rx Instructions .ROUTE .COMPLEX Qty: 100 2RF Dose Instruction: TAKE 1 TABLET BY MOUTH ONCE DAILY Rx Instructions: TAKE 1 TABLET BY MOUTH ONCE DAILY metoprolol tartrate 75 mg tablet See Rx Instructions .ROUTE .COMPLEX Qty: 180 1RF Dose Instruction: Take 1 tablet by mouth twice daily Rx Instructions: Take 1 tablet by mouth twice daily Eliquis 5 mg tablet See Rx Instructions .ROUTE .COMPLEX Qty: 60 0RF Dose Instruction: Take 1 tablet by mouth twice daily Rx Instructions: Take 1 tablet by mouth twice daily Follow-up/Referrals: Francie Pa APRN [Primary Care Provider] - Time of Disposition: 13:56
--- NOTE | 2024-07-13 13:29 | PC.NURSE ---
ERP states patient's breathing has improved, no need for magnesium infusion.
[2024-07-13 14:12] LABS: Reflex Lactic Acid Yes or No Add Lactic
[2024-07-13] MEDS: ACETAMINOPHEN 500 MG TABLET 1000 MG PO (14:34)
[2024-07-13 14:51] LABS: Lactic Acid 2.2 mmol/L (0.4-2.0)
--- NOTE | 2024-07-14 10:41 | PC.NURSE ---
preliminary report of gram positive cocci in chains with blood culture reported to SCOTT Blakely at [facility] . via phone .
--- NOTE | 2024-07-15 13:36 | PC.NURSE ---
preliminary blood cultures x2 reviewed. gram positive cocci isolated. this report was faxed to [facility] yesterday, pt was transferred to [place] from this er.
== END 2024-07-13 14:38 | disposition short-term general hospital (02) ==
PROVIDERS: Emergency Provider Emergency Medicine; PCP Nurse Practitioner Family
DX: J18.9 Pneumonia, unspecified organism (principal); J44.9 Chronic obstructive pulmonary disease, unspecified; I10 Essential (primary) hypertension; I48.91 Unspecified atrial fibrillation; F17.210 Nicotine dependence, cigarettes, uncomplicated
CPT/HCPCS: 36415; 71045; 80053; 81001; 83605; 83735; 83880; 84484; 85025; 85380; 85610; 85730; 87040; 93005; 94640; 96361; 96365; 96368; 96375; 99285; A9270; J0456; J0696; J2919; J7030

== ENCOUNTER 2024-07-13 16:17 | Inpatient (IN) | payer MEDICARE, MEDICAID, SELFPAY ==
[2024-07-13] VITALS (13 sets, daily range): BP systolic 82–110; BP diastolic 49–62; PULSE 58–75; RESP 18–24; TEMP 36.3–36.8; O2SAT 94–100; BMI 30.1
--- NOTE | ~2024-07-13 | XR_ITS ---
Portable chest x-ray Comparison: 07/13/2024 Clinical History: Shortness of breath Findings: Probable hazy airspace disease right perihilar region. Left lung clear. Cardiomediastinal silhouette is stable. Bones and soft tissues are unremarkable. Impression: Suggestion of mild haziness right perihilar region. Correlate for subtle/early pneumonia. Reviewed, dictated and finalized at location . Impression: Suggestion of mild haziness right perihilar region. Correlate for subtle/early pneumonia.
--- OUTSIDE RECORDS SUMMARY | 2024-07-13 15:27 | XMS_ITS | Clinical Summary ---
Author Organization [facility] Address [address] [place] [address] Care Team Providers Care Green Building Design Specialist Name Role Phone Unavailable Primary Care Provider Unavailabl e Source Comments [facility],non-owned Affiliates and Associated Physician Practices is amultiple site organization consisting of ambulatory clinics and hospital sitesin [place], [place], [place] and [place]. This disclosure is being madepursuant to the Care Everywhere program and may not contain all information available regarding this patient. Last updated 17.[facility] Active Problems Problem Noted Date Diagnosed Date [...]
--- OUTSIDE RECORDS SUMMARY | 2024-07-13 15:27 | XMS_ITS | Encounter Summary ---
Author Organization [facility] Address [address] [place] [address] Care Team Providers Care Music Industry Intern Name Role Phone Unavailable Primary Care Provider Unavailabl e Encounter Details Date Type Department Care Team (Late st Contact Info) Description 11/01/2023 Hospital Encounter [facility] [address] [place] [address] Madisyn Cook MD [address] [place] [address] Cardiology Social History Tobacco Use Types Packs/Day [...]
--- OUTSIDE RECORDS SUMMARY | 2024-07-13 15:27 | XMS_ITS | Clinical Summary ---
Author Organization [facility] Address [address] [place] [address] Care Team Providers Care Seafood Clerk Name Role Phone Chapo Muniz MD Unavailable Unavailab Nikita Nicole MD Primary Care Provider [phone] Allergies No known active allergies Medications albuterol [...] Comments Blood Pressure 145/93 05/24/2023 10:54 AM COMPLAINT INVESTIGATOR Pulse 91 05/24/2023 10:54 AM COMPLAINT INVESTIGATOR Temperature 36.2 C (97.2 F) 05/24/2023 9:06 AM COMPLAINT INVESTIGATOR Respiratory Rate 18 05/24/2023 9:06 AM COMPLAINT INVESTIGATOR Oxygen Saturation 92% 05/24/2023 10:54 AM COMPLAINT INVESTIGATOR Inhaled Oxygen Concentration - - Weight 58.1 kg (128 lb) 05/14/2023 1:23 PM COMPLAINT INVESTIGATOR Height 157.5 cm (5' 2 ) 05/14/2023 1:23 PM COMPLAINT INVESTIGATOR Body Mass Index 23.41 05/14/2023 1:23 PM COMPLAINT INVESTIGATOR Plan of Treatment Health Maintenance Due Date [...] this topic Medical Devices Implanted Type Area Dumper Mold Cleaner Device Identifier Shelf Expiration Date Model / Serial / Lot 1-Piece Iol With [employer]ecnis Simplicity Delivery System Implanted:Qty: 1 on 05/24/2023 by Waylon Kim MD at [facility] Left: Eye 10/18/2025 / [id number] / [id number] Insurance MEDICAID MEDICAID Member Subscriber Plan / Payer (Ef fective 2017-Present) Name:Mercy Pereira Relation to Subscriber:Self Name:MERCY PEREIRA Payer ID:Not on file Group ID:Not on file Type:Not on file Address: [address] Care Teams Seafood Clerk Relationship Specialty Start Date End Date Nikita Campa MD [address] [place] [address] PCP - General FAMILY PRACTICE 04/05/17 Chapo Muniz MD CARDIOVASCULAR DISEASE 04/05/17
--- OUTSIDE RECORDS SUMMARY | 2024-07-13 15:27 | XMS_ITS | Encounter Summary ---
Author Organization [facility] Address [address] [place] [address] Care Team Providers Care Grade Teacher Name Role Phone Chapo Muniz MD Unavailable Unavailab le Nikita Campa MD Primary Care Provider [phone] Encounter Details Date Type Department Care Team (Late st Contact Info) Description 09/03/2018 Abstract SFL CONVERSION [address] [place] [address] , Generic Conversion, Social History Tobacco Use [...] Rule Out 05/20/2021 05/20/2021 05/20/2021 12:02 PM MANAGER COMMISSION documented as of this encounter Care Teams Grade Teacher Relationship Specialty Start Date End Date Nikita Campa MD [address] [place] [address] PCP - General FAMILY PRACTICE 04/05/17 Chapo Muniz MD CARDIOVASCULAR DISEASE 04/05/17 documented as of this encounter
--- NOTE | 2024-07-13 15:53 | ADMGEN ---
This patient, Mercy Martinez, was admitted to IMU Room 211-01 at 1509. Patient/family oriented to hospital policies and general routines including ID bracelet, bed and alarms, visiting hours, pain management, procedures, bathroom and other care routines, personal items, smoking policy, room service/diet, and visiting hours. Information on how to activate the Rapid Response Team has been discussed. Patient/Family are encouraged to report perceived risks to care and to ask questions if they do not understand what they are told or what they should do.
--- NOTE | 2024-07-13 16:25 | PM.IMHP ---
H&P: HPI History of Present Illness Date/Time: 07/13/24 16:25 Chief Complaint: Shortness of breath. Narrative: This is a 64-year-old female smoker with chronic obstructive pulmonary disease, hypertension, paroxysmal atrial fibrillation on anticoagulation, and hyperthyroidism who presented to the emergency department at the [facility] earlier today with complaints of shortness of breath. She has not felt well with several days with symptoms to include fatigue, aches, subjective fever, poor appetite, loose stools, increased shortness of breath from baseline, and a cough productive of brown phlegm. She has been using her nebulizers at home with lesser and lesser benefit. She has not tried any [id number] remedies. She denies sick contacts, headache, sore throat, chest pain, pleuritic pain, syncope, near syncope, vomiting, and edema. In the ED: Her blood pressures were as low as 71/50 but did respond to 2 L normal saline bolus. She has been afebrile. Labs at the outside facility were significant for a WBC count of 21.1 with 7% bands, INR 1.4, sodium 135, potassium 3.2, BUN 26, creatinine 1.49, glucose 151, lactic acid 3.4, magnesium 1.5, total bilirubin 2.1, proBNP 7427. Chest x-ray showed suspected subtle right middle lobe pneumonia. Given her sepsis picture, transfer was initiated to [place] for further treatment. Review of Systems Review of Systems: 12 systems were reviewed and are negative except for as per HPI. [facility] Past Medical History Medical History (Updated 07/13/24 @ 22:51 by Claire Webb PA-C) Chronic obstructive pulmonary disease Gastroesophageal reflux disease Chronic anticoagulation Paroxysmal atrial fibrillation Hyperthyroidism Colon, diverticulosis Anemia Tobacco dependence Essential (primary) hypertension Surgical History Surgical History (Updated 07/13/24 @ 22:48 by Claire Webb PA-C) History of repair of right rotator cuff History of cholecystectomy History of hysterectomy History of carpal tunnel release Family History Family History Father Alcoholic Cancer Mother Asthma Diabetes mellitus Hypertension Depression Thyroid disorder Sibling Asthma Thyroid disorder Other Asthma Thyroid disorder Grandparent Cancer Thyroid disorder Grandparent Cancer Daughter Alports syndrome Social History Social History (Updated 07/13/24 @ 22:49 by Claire Webb PA-C) Social History: Surrogate medical decision maker: Elizabeth Duke, daughter. Code status: Full code. Smoking packs per day: 2 Smoking cigarettes per day: 40.0 Years smoked: 45 Smoking pack-years: 90.00 Smoking status: Current every day smoker Second hand tobacco smoke exposure: Yes Alcohol intake: never Substance use: never Substance use type: former substance user Do You Feel Safe in your Home?: Yes Lack of Transportation: No Lack of Food: Never True Current Housing: I Have Housing Concerned About Future Housing: No Difficulty Paying Gas/Electric Bills: No Difficulty Paying for Meds: No Currently Unemployed: No Education: Decline to Answer Difficulty w/ Childcare or Family Care: No Living arrangements: alone Additional living arrangements comments: Lives in [place]. Occupation/Education: other Additional occupation/education comments: Disabled Spiritual care concerns: No Meds Home Medications and Allergies Home Medications ?Medication ?Instructions ?Recorded ?Confirmed ?Type losartan 100 mg tablet See Rx Instructions .Route 05/26/23 07/13/24 Rx .COMPLEX #100 tabs Perforomist 20 mcg/2 mL solution 2 ml inhalation BID #120 mL 10/15/23 07/13/24 Rx for nebulization (formoterol fumarate) albuterol sulfate 2.5 mg/3 mL 2.5 mg (3 mL) inhalation BID PRN 10/15/23 07/13/24 Rx (0.083 %) solution for nebulization shortness of breath or wheezing #180 mL albuterol sulfate 90 mcg/actuation 1 - 2 inh inhalation Q4-6H PRN 10/15/23 07/13/24 Rx aerosol inhaler shortness of breath or wheezing #8.5 grams ipratropium bromide 0.02 % 2.5 ml inhalation Q6H PRN 10/15/23 07/13/24 Rx solution for inhalation shortness of breath or wheezing #300 mL metoprolol tartrate 75 mg tablet See Rx Instructions .Route 03/07/24 07/13/24 Rx .COMPLEX #180 tabs methimazole 5 mg tablet 5 mg PO DAILY #240 tabs 05/31/24 07/13/24 Rx apixaban 5 mg tablet (Eliquis) See Rx Instructions .Route 06/26/24 07/13/24 Rx .COMPLEX #60 tabs Allergies Allergy/AdvReac Type Severity Reaction Status Date / Time No Known Allergies Allergy Verified 07/13/24 12:10 Vital Signs Vital Signs - 24 hr 07/13/24 15:24 07/13/24 15:48 07/13/24 15:55 Temperature 98.2 F 98.1 F Pulse Rate 73 73 Respiratory Rate 20 24 H Blood Pressure 97/58 L 93/54 L Pulse Oximetry 96 96 95 Oxygen Delivery Nasal Cannula Oxygen Flow Rate 2 Exam Narrative: General: Moderately ill-appearing female in the semi-Borja position in bed. Weight: 74.7 kg. BMI: 30.1. HEENT: PERRL, EOMI. Sclera anicteric. Dry mucous membranes. Neck: Supple. Respiratory: Respirations are nonlabored and she is speaking in full sentences. Lung sounds are diminished with occasional expiratory wheezing and scattered rhonchi which improved with cough. Cardiovascular: Regular rate and rhythm with S1-S2. Soft systolic murmur at the lower sternal border. Gastrointestinal: Abdomen is soft, nontender, and nondistended with positive bowel sounds. Skin: Warm and dry. Normal capillary refill. Extremities are warm and well perfused. Extremities: No cyanosis, clubbing, or edema. Radial and pedal pulses intact. Neurological: Alert. Cranial nerves 2-12 are grossly intact. No gross focal deficits to casual conversation. Psychiatric: Pleasant and cooperative with appropriate mood and affect. Assessment and Plan Assessment and plan (1) Sepsis: Code(s): A41.9 - Sepsis, unspecified organism Status: Acute (2) Pneumonia involving right lung: Code(s): J18.9 - Pneumonia, unspecified organism Status: Acute (3) Chronic obstructive pulmonary disease: Code(s): J44.9 - Chronic obstructive pulmonary disease, unspecified Status: Acute (4) Tobacco dependence: Code(s): F17.200 - Nicotine dependence, unspecified, uncomplicated Status: Chronic (5) Essential (primary) hypertension: Code(s): I10 - Essential (primary) hypertension Status: Chronic (6) Paroxysmal atrial fibrillation: Code(s): I48.0 - Paroxysmal atrial fibrillation Status: Acute (7) Chronic anticoagulation: Code(s): Z79.01 - skilled nursing (current) use of anticoagulants Status: Acute (8) Hyperthyroidism: Code(s): E05.90 - Thyrotoxicosis, unspecified without thyrotoxic crisis or storm Status: Acute Plan The patient presented to the outside hospital with complaints of shortness of breath, cough, and other symptoms for several days as detailed in HPI. She meets sepsis criteria on arrival with hypotension which was responsive to IV fluids, elevated lactic acid level, tachycardia, leukocytosis with bandemia, and acute kidney injury. Lactic acid level improved with IV fluids. Right-sided pneumonia noted on chest x-ray and she has been started on ceftriaxone and azithromycin. Send sputum for culture and check Legionella and pneumococcal antigens as well as mycoplasma IgM. Continue scheduled bronchodilators. Blood cultures were obtained at the outside facility prior to initiation of antibiotics. Smoking cessation is imperative and was discussed. She declines the need for nicotine patch at this time. Hold antihypertensives for now given soft blood pressures earlier. She is in a sinus rhythm. Check TSH and T4. Her home medications will be reviewed and resumed as appropriate. Findings and treatment plan were discussed with the patient. Questions were solicited and answered to satisfaction. The patient's medical management will be taken over by the hospitalist team in a.m. Quality VTE Prophylaxis VTE prophylaxis: pharmacologic ordered (on apixaban) The patient has been admitted under observation status. Hospitalist MIPS Advance Care Plan I have confirmed that the patient's Advanced Care Plan is present, code status is documented, or surrogate decision maker is listed in patient medical record.: Yes Medication Reconciliation I have utilized all available resources to obtain, update and review the patients current medications (includes all prescriptions, OTC, herbals, cannabis, and nutritional supplements).: Yes
--- OUTSIDE RECORDS SUMMARY | 2024-07-13 16:26 | XMS_ITS | Encounter Summary ---
Author Organization [facility] Address [address] [place] [address] Care Team Providers Care Supervisor Production Managing Name Role Phone Chapo Muniz MD Unavailable Unavailab le Nikita Campa MD Primary Care Provider [phone] Encounter Details Date Type Department Care Team (Late st Contact Info) Description 09/03/2018 Abstract SFL CONVERSION [address] [place] [address] , Generic Conversion, Social History Tobacco Use [...] Rule Out 05/20/2021 05/20/2021 05/20/2021 12:02 PM FIBER GLASS WORKER documented as of this encounter Care Teams Supervisor Production Managing Relationship Specialty Start Date End Date Nikita Campa MD [address] [place] [address] PCP - General FAMILY PRACTICE 04/05/17 Chapo Muniz MD CARDIOVASCULAR DISEASE 04/05/17 documented as of this encounter
--- OUTSIDE RECORDS SUMMARY | 2024-07-13 16:26 | XMS_ITS | Clinical Summary ---
Author Organization [facility] Address [address] [place] [address] Care Team Providers Care Electronic Industrial Controls Mechanic Name Role Phone Unavailable Primary Care Provider Unavailabl e Source Comments [facility],non-owned Affiliates and Associated Physician Practices is amultiple site organization consisting of ambulatory clinics and hospital sitesin [place], [place], [place] and [place]. This disclosure is being madepursuant to the Care Everywhere program and may not contain all information available regarding this patient. Last updated 17.[facility] [employer] Active Problems Problem Noted Date Diagnosed Date [...]
--- OUTSIDE RECORDS SUMMARY | 2024-07-13 16:26 | XMS_ITS | Clinical Summary ---
Author Organization [facility] Address [address] [place] [address] Care Team Providers Care Heavy Equipment Supervisor Name Role Phone Chapo Muniz MD Unavailable Unavailab Nikita Nicole MD Primary Care Provider [phone] Allergies No known active allergies Medications albuterol [...] Comments Blood Pressure 145/93 05/24/2023 10:54 AM COACH CLEANER Pulse 91 05/24/2023 10:54 AM COACH CLEANER Temperature 36.2 C (97.2 F) 05/24/2023 9:06 AM COACH CLEANER Respiratory Rate 18 05/24/2023 9:06 AM COACH CLEANER Oxygen Saturation 92% 05/24/2023 10:54 AM COACH CLEANER Inhaled Oxygen Concentration - - Weight 58.1 kg (128 lb) 05/14/2023 1:23 PM COACH CLEANER Height 157.5 cm (5' 2 ) 05/14/2023 1:23 PM COACH CLEANER Body Mass Index 23.41 05/14/2023 1:23 PM COACH CLEANER Plan of Treatment Health Maintenance Due Date [...] this topic Medical Devices Implanted Type [employer] Counsel[employer] Device Identifier Shelf Expiration Date Model / Serial / Lot 1-Piece Iol With [employer]ecnis Simplicity Delivery System Implanted:Qty: 1 on 05/24/2023 by Waylon Kim MD at [facility] Left: Eye 10/18/2025 / [id number] / [id number] Insurance MEDICAID MEDICAID Member Subscriber Plan / Payer (Ef fective 2017-Present) Name:Mercy Pereira Relation to Subscriber:Self Name:MERCY PEREIRA Payer ID:Not on file Group ID:Not on file Type:Not on file Address: [address] [place] [address] Care Teams Heavy Equipment Supervisor Relationship Specialty Start Date End Date Nikita Campa MD [address] [place] [address] PCP - General FAMILY PRACTICE 04/05/17 Chapo Muniz MD CARDIOVASCULAR DISEASE 04/05/17
--- OUTSIDE RECORDS SUMMARY | 2024-07-13 16:26 | XMS_ITS | Encounter Summary ---
Author Organization [facility] Health Address [address] [place] [address] Care Team Providers Care Public Welfare Worker Name Role Phone Unavailable Primary Care Provider Unavailabl e Encounter Details Date Type Department Care Team (Late st Contact Info) Description 11/01/2023 Hospital Encounter [facility] BED [facility]ANN[facility] [address] [place] [address] Madisyn Cook MD [address] [place] [address] Cardiology Social History Tobacco Use Types Packs/Day [...]
[2024-07-13 16:54] LABS: Hemoglobin 10.6 g/dL (12.0-15.0); Mean Corpuscular HGB Conc 32.1 g/dl (32-36); Mean Corpuscular Hemoglobin 30.1 pg (26-34); Mean Corpuscular Volume 93.8 fl (80-100); Mean Platelet Volume 9.8 fl (7.4-10.4); Platelet Count Result 127 k/mm3 (150-375); Red Blood Count 3.52 M/mm3 (4.2-5.4); Red Cell Distribution Width 12.4 % (11.5-14.5); White Blood Count 15.3 K/mm3 (4.5-10.0)
[2024-07-13] MEDS: SODIUM CHLORIDE 0.9% IV 500 ML IV CONT (17:07)
[2024-07-13 17:29] LABS: Band Neutrophils Percent 12 % (0-6); Lymphocytes Absolute Manual 0.45 K/mm3 (1.1-4.5); Lymphocytes Percent Manual 3 % (18-44); Metamyelocytes Percent 1 %; Monocytes Percent Manual 2 % (3-9); Myelocytes Percent 1 %; Neutrophils Absolute Manual 14.22 K/mm3 (1.7-7.2); Neutrophils Percent Manual 81 % (46-73); Total Cells Counted 100
[2024-07-13 17:30] LABS: Platelet Estimate Adequate (Adequate); Schistocytes None Seen
[2024-07-13 17:55] LABS: Influenza A QL RT-PCR Negative (Negative); Influenza B QL RT-PCR Negative (Negative); SARS-CoV-2 RNA PCR Negative (Negative)
[2024-07-13] MEDS: AZITHROMYCIN 500 MG/NS 250 ML 500 MG/250 ML BAG 250 MG IVPB (18:10)
[2024-07-13 18:31] LABS: MRSA (PCR) NOT DETECTED (NOT DETECTE)
[2024-07-13] MEDS: IPRATROPIUM 0.5 MG/ALBUTEROL SULFATE 2.5 MG AMPUL.NEB 3 ML INHALATION (19:49)
[2024-07-13] MEDS: guaiFENesin 12 HR 600 MG TABCR 1200 MG PO (20:50)
[2024-07-13 23:20] LABS: Anion Gap 8 mmol/L (4-12); Blood Urea Nitrogen 23 mg/dL (7-17); Calcium 7.6 mg/dL (8.4-10.2); Carbon Dioxide 21 mmol/L (22-30); Chloride 107 mmol/L (98-107); Estimated CRCL calculation 61 ml/min; Estimated Glomerular Filt Rate > 60; Glucose 151 mg/dL (65-110); Magnesium 1.9 mg/dL (1.6-2.3); Potassium 3.4 mmol/L (3.4-5.0); Sodium 136 mmol/L (137-145)
[2024-07-13 23:21] LABS: Lactic Acid Reflex 2.6 mmol/L (0.7-2.0)
[2024-07-14] VITALS (29 sets, daily range): BP systolic 113–124; BP diastolic 61–85; PULSE 70–121; RESP 18–24; TEMP 36.4–36.8; O2SAT 95–99
[2024-07-14 00:12] LABS: Thyroid Stimulating Hormone Reflex 0.363 uIU/mL (0.465-4.68)
[2024-07-14] MEDS: SODIUM CHLORIDE 0.9% IV 1,000 ML 75 ML IV CONT ×2 (00:41→14:20)
[2024-07-14] MEDS: IPRATROPIUM 0.5 MG/ALBUTEROL SULFATE 2.5 MG AMPUL.NEB 3 ML INHALATION ×3 (01:58→13:26)
[2024-07-14 05:09] LABS: Free T4 Free Thyroxine Reflex 1.39 ng/dL (0.78-2.19)
[2024-07-14 05:10] LABS: Total Triiodothyronine (T3) 0.54 NG/ML (0.97-1.69)
[2024-07-14 05:30] LABS: Hematocrit 33.3 % (37.0-47.0); Hemoglobin 10.4 g/dL (12.0-15.0); Mean Corpuscular HGB Conc 31.2 g/dl (32-36); Mean Platelet Volume 10.4 fl (7.4-10.4); Platelet Count Result 135 k/mm3 (150-375); Red Blood Count 3.47 M/mm3 (4.2-5.4); Red Cell Distribution Width 12.4 % (11.5-14.5); White Blood Count 14.1 K/mm3 (4.5-10.0)
[2024-07-14 05:53] LABS: Alanine Aminotransferase 15 U/L (6-35); Albumin Level 3.3 g/dL (3.5-5.1); Alkaline Phosphatase 58 U/L (38-126); Anion Gap 12 mmol/L (4-12); Aspartate Amino Transferase 16 U/L (14-36); Bilirubin,Total 0.5 mg/dL (0.2-1.3); Blood Urea Nitrogen 22 mg/dL (7-17); Calcium 7.7 mg/dL (8.4-10.2); Carbon Dioxide 19 mmol/L (22-30); Chloride 108 mmol/L (98-107); Estimated CRCL calculation 77 ml/min; Estimated Glomerular Filt Rate > 60; Glucose 154 mg/dL (65-110); Sodium 139 mmol/L (137-145)
[2024-07-14] MEDS: guaiFENesin 12 HR 600 MG TABCR 1200 MG PO ×2 (08:17→20:14)
[2024-07-14] MEDS: APIXABAN 5 MG TABLET BY MOUTH ×2 (08:17→20:14)
[2024-07-14] MEDS: POTASSIUM CHLORIDE 20 MEQ PACKET (FOR LIQUID) 40 MEQ PO (08:18)
[2024-07-14] MEDS: methiMAzole 5 MG TAB PO (08:18)
--- NOTE | 2024-07-14 09:59 | PC.NURSE ---
On 07/14/24, the student, [Divya Jimenez], provided care and completed [facility] documentation on this patient. I have reviewed the student's documentation and agree with the findings.
[2024-07-14] MEDS: ACETAMINOPHEN 325 MG TABLET 650 MG PO (11:08)
[2024-07-14] MEDS: VANCOMYCIN 1,750 MG/NS 500 ML 1,750 MG/500 ML BAG 250 MG IVPB (12:17)
[2024-07-14] MEDS: IBUPROFEN 600 MG TABLET PO (12:53)
--- NOTE | 2024-07-14 13:14 | P.PNIM_ITS ---
Progress Note: A&P Assessment and Plan (1) Sepsis: Code(s): A41.9 - Sepsis, unspecified organism Status: Acute (2) Pneumonia involving right lung: Code(s): J18.9 - Pneumonia, unspecified organism Status: Acute (3) Chronic obstructive pulmonary disease: Code(s): J44.9 - Chronic obstructive pulmonary disease, unspecified Status: Acute (4) Tobacco dependence: Code(s): F17.200 - Nicotine dependence, unspecified, uncomplicated Status: Chronic (5) Essential (primary) hypertension: Code(s): I10 - Essential (primary) hypertension Status: Chronic (6) Paroxysmal atrial fibrillation: Code(s): I48.0 - Paroxysmal atrial fibrillation Status: Acute (7) Chronic anticoagulation: Code(s): Z79.01 - termite exterminator helper (current) use of anticoagulants Status: Acute (8) Hyperthyroidism: Code(s): E05.90 - Thyrotoxicosis, unspecified without thyrotoxic crisis or storm Status: Acute Plan This is a 64-year-old female smoker with chronic obstructive pulmonary disease, hypertension, paroxysmal atrial fibrillation on anticoagulation, and hyperthyroidism who [place] [facility] [place] of shortness of breath. She has not felt well with several days with symptoms to include fatigue, aches, subjective fever, poor appetite, loose stools, increased shortness of breath from baseline, and a cough productive of brown phlegm. She has been using her nebulizers at home with lesser and lesser benefit. She has not tried any ncjn-fvj-[id number] remedies. She denies sick contacts, headache, sore throat, chest pain, pleuritic pain, syncope, near syncope, vomiting, and edema. In the ED: Her blood pressures were as low as 71/50 but did respond to 2 L normal saline bolus. She has been afebrile. Labs at the outside facility were significant for a WBC count of 21.1 with 7% bands, INR 1.4, sodium 135, potassium 3.2, BUN 26, creatinine 1.49, glucose 151, lactic acid 3.4, magnesium 1.5, total bilirubin 2.1, proBNP 7427. Chest x-ray showed suspected subtle right middle lobe pneumonia. Given her sepsis picture, transfer was initiated to [place] for further treatment. sepsis hypotension improed with ivf lactic acidosis right middle lobe pneumonia bacteremia with gpc chains. start vancomycin genoveva with cr 1.49. continue ivf copd tobacco abuse paroxysmal atrial fibrillation. resume low dose metoprolol hypertension chronic anticoagulation with eliquis hyperthyroidism tsh slightly low. continue methimazole DVT proph: on eliquis code status: full code Subjective Date/time seen: 07/14/24 13:14 Interval history: Still feels sick. Coughing shortness of breath present. No chest pain Review of Systems Review of Systems: All systems reviewed & are unremarkable except as noted in HPI and below Exam Narrative: General: Moderately ill-appearing female in the semi-Borja position in bed. HEENT: PERRL, EOMI. Sclera anicteric. Dry mucous membranes. Neck: Supple. Respiratory: Respirations are nonlabored and she is speaking in full sentences. Lung sounds are diminished with occasional expiratory wheezing and scattered rhonchi which improved with cough. Cardiovascular: Regular rate and rhythm with S1-S2. Soft systolic murmur at the lower sternal border. Gastrointestinal: Abdomen is soft, nontender, and nondistended with positive bowel sounds. Skin: Warm and dry. Normal capillary refill. Extremities are warm and well perfused. Extremities: No cyanosis, clubbing, or edema. Radial and pedal pulses intact. Neurological: Alert. Cranial nerves 2-12 are grossly intact. No gross focal deficits to casual conversation. Psychiatric: Pleasant and cooperative with appropriate mood and affect. Objective Data Vital Signs Vital Signs: Vital Signs - 24 hr 07/13/24 15:24 07/13/24 15:48 07/13/24 15:55 Temperature 98.2 F 98.1 F Pulse Rate 73 73 Respiratory Rate 20 24 H Blood Pressure 97/58 L 93/54 L Pulse Oximetry 96 96 95 Oxygen Delivery Nasal Cannula Oxygen Flow Rate 2 07/13/24 16:00 07/13/24 18:00 07/13/24 19:49 Temperature Pulse Rate 70 75 69 Respiratory Rate 18 Blood Pressure Pulse Oximetry Oxygen Delivery Oxygen Flow Rate 07/13/24 19:56 07/13/24 20:00 07/13/24 20:00 Temperature 97.4 F L Pulse Rate 69 67 68 Respiratory Rate 24 H 22 H Blood Pressure 82/49 L Pulse Oximetry 94 100 98 Oxygen Delivery Nasal Cannula Nasal Cannula Oxygen Flow Rate 2 2 07/13/24 20:00 07/13/24 20:02 07/13/24 21:03 Temperature 97.4 F L Pulse Rate 68 69 68 Respiratory Rate 18 22 H Blood Pressure 110/62 Pulse Oximetry 98 Oxygen Delivery Oxygen Flow Rate 07/13/24 22:00 07/13/24 23:17 07/13/24 23:46 Temperature 97.4 F L Pulse Rate 64 58 L 62 Respiratory Rate 22 H 22 H Blood Pressure 91/50 L Pulse Oximetry 97 97 Oxygen Delivery Nasal Cannula Oxygen Flow Rate 2 07/13/24 23:46 07/14/24 01:58 07/14/24 02:00 Temperature Pulse Rate 62 72 84 Respiratory Rate 18 Blood Pressure Pulse Oximetry Oxygen Delivery Oxygen Flow Rate 07/14/24 02:10 07/14/24 04:00 07/14/24 04:00 Temperature 97.5 F L Pulse Rate 70 88 76 Respiratory Rate 18 22 H 22 H Blood Pressure 121/65 Pulse Oximetry 97 97 Oxygen Delivery Nasal Cannula Oxygen Flow Rate 2 07/14/24 04:00 07/14/24 05:23 07/14/24 08:00 Temperature Pulse Rate 76 72 Respiratory Rate Blood Pressure Pulse Oximetry 96 Oxygen Delivery Nasal Cannula Oxygen Flow Rate 2 07/14/24 08:00 07/14/24 08:02 07/14/24 08:39 Temperature 97.8 F Pulse Rate 110 H 86 77 Respiratory Rate 18 Blood Pressure 118/85 Pulse Oximetry 97 98 Oxygen Delivery Nasal Cannula Oxygen Flow Rate 2 07/14/24 08:39 07/14/24 08:51 07/14/24 09:31 Temperature Pulse Rate 77 112 H Respiratory Rate 18 24 H Blood Pressure Pulse Oximetry 97 Oxygen Delivery Nasal Cannula Oxygen Flow Rate 2 07/14/24 10:00 07/14/24 11:38 07/14/24 11:40 Temperature 98.2 F Pulse Rate 100 94 Respiratory Rate 22 H Blood Pressure 113/61 Pulse Oximetry 98 97 Oxygen Delivery Nasal Cannula Oxygen Flow Rate 2 07/14/24 11:47 07/14/24 12:00 Temperature 98.1 F Pulse Rate 114 H 114 H Respiratory Rate 20 Blood Pressure 124/78 Pulse Oximetry 96 Oxygen Delivery Nasal Cannula Oxygen Flow Rate 2 Intake/Output Intake/Output: Intake & Output 07/11/24 07/12/24 07/13/24 07/14/24 23:59 23:59 23:59 23:59 Intake Total 550 1210 Output Total 0 401 Balance 550 809 Meds/Results Medications: Active Medications Generic Name Dose Route Start Last Admin Trade Name Freq PRN Reason Stop Dose Admin Acetaminophen 650 mg 07/13/24 16:19 07/14/24 11:08 Acetaminophen 325 Mg Tablet PO 650 mg Q6H PRN Administration Mild Pain (1-3) or Fever Albuterol/Ipratropium 3 ml 07/13/24 20:00 07/14/24 08:36 Ipratropium 0.5 Mg/Albuterol Sulfate 2.5 Mg Ampul.Neb 3 Ml INHALATION 3 ml Q6HRT SOHAIL Administration Apixaban 5 mg 07/14/24 09:00 07/14/24 08:17 Apixaban 5 Mg Tablet BY MOUTH 5 mg Q12HR SOHAIL Administration Guaifenesin 1,200 mg 07/13/24 21:00 07/14/24 08:17 Guaifenesin 12 Hr 600 Mg Tabcr PO 1,200 mg Q12HR SOHAIL Administration Azithromycin 500 mg in 250 mls @ 250 mls/hr 07/13/24 18:00 07/13/24 19:10 Zithromax IVPB Infused Q24H SOHAIL Infusion Sodium Chloride 1,000 mls @ 75 mls/hr 07/14/24 00:24 07/14/24 00:41 Normal Saline Iv IV CONT 07/14/24 13:43 75 mls/hr .[id number] ONE Administration Vancomycin HCl 1,750 mg in 500 mls @ 250 mls/hr 07/14/24 11:16 07/14/24 12:17 Vancomycin 1,750 Mg/Ns 500 Ml IVPB 07/14/24 13:15 250 mls/hr ONCE ONE Administration Ceftriaxone Sodium 2 gm in 100 mls @ 200 mls/hr 07/14/24 13:00 Rocephin 2 Gm/Ns 100 Ml IVPB Q24H SOHAIL Vancomycin HCl 1,250 mg in 250 mls @ 166.667 mls/hr 07/15/24 06:00 Vancomycin 1,250 Mg/Ns 250 Ml IVPB Q12H SOHAIL Methimazole 5 mg 07/14/24 09:00 07/14/24 08:18 Methimazole 5 Mg Tab PO 5 mg DAILY SOHAIL Administration Salmeterol Xinafoate 1 puff 07/14/24 08:00 Salmeterol Xinafoate 50 Mcg Diskus INHALATION Q12HRT [facility] Vancomycin HCl 1 each 07/14/24 11:05 1st Dose Sent IVPB PER PROTOCOL [facility] Radiology Results: ITS Impressions Chest X-Ray 07/14/24 13:00 Impression: Suggestion of mild haziness right perihilar region. Correlate for subtle/early pneumonia. Labs Labs: Laboratory Results - last 24 hr 07/13/24 07/13/24 07/13/24 16:45 17:13 23:04 WBC 15.3 H RBC 3.52 L Hgb 10.6 L Hct 33.0 L MCV 93.8 MCH 30.1 MCHC 32.1 RDW 12.4 Plt Count 127 L MPV 9.8 Immature Gran % (Auto) Not Reportable Neut % (Auto) Not Reportable Lymph % (Auto) Not Reportable Carter % (Auto) Not Reportable Eos % (Auto) Not Reportable Baso % (Auto) Not Reportable Lymph # (Auto) Not Reportable [place] # (Auto) Not Reportable Eos # (Auto) Not Reportable Baso # (Auto) Not Reportable Abs Immat Gran (auto) Not Reportable Absolute Neuts (auto) Not Reportable Absolute Nucleated RBC Not Reportable Total Counted 100 Neutrophils % (Manual) 81 H Band Neutrophils % 12 H Lymphocytes % (Manual) 3 L Monocytes % (Manual) 2 L Metamyelocytes % 1 Myelocytes % 1 Nucleated RBC % Not Reportable Abs Neuts (Manual) 14.22 H Abs Lymphs (Manual) 0.45 L Abs Monocytes (Manual) 0.30 Platelet Estimate Adequate % Immature Plt Fraction Schistocytes None seen Sodium 136 L Potassium 3.4 Chloride 107 Carbon Dioxide 21 L Anion Gap 8 BUN 23 H D Creatinine 0.77 Estim Creat Clear Calc 61 Estimated GFR > 60 Glucose 151 H Lactic Acid 2.6 H Calcium 7.6 L Magnesium 1.9 Total Bilirubin AST ALT Alkaline Phosphatase Total Protein Albumin TSH (Reflex) 0.363 L Free T4 1.39 Total T3 0.54 L Random Cortisol 19.30 Nasal MRSA (PCR) Not detected Influenza A (RT-PCR) Negative Influenza B (RT-PCR) Negative SARS-CoV-2 RNA (RT-PCR) Negative 07/14/24 04:21 WBC 14.1 H RBC 3.47 L Hgb 10.4 L Hct 33.3 L MCV 96.0 MCH 30.0 MCHC 31.2 L RDW 12.4 Plt Count 135 L MPV 10.4 Immature Gran % (Auto) Neut % (Auto) Lymph % (Auto) [place] % (Auto) Eos % (Auto) Baso % (Auto) Lymph # (Auto) [place] # (Auto) Eos # (Auto) Baso # (Auto) Abs Immat Gran (auto) Absolute Neuts (auto) Absolute Nucleated RBC Total Counted Neutrophils % (Manual) Band Neutrophils % Lymphocytes % (Manual) Monocytes % (Manual) Metamyelocytes % Myelocytes % Nucleated RBC % Abs Neuts (Manual) Abs Lymphs (Manual) Abs Monocytes (Manual) Platelet Estimate % Immature Plt Fraction 4.0 Schistocytes Sodium 139 Potassium 3.0 L Chloride 108 H Carbon Dioxide 19 L Anion Gap 12 BUN 22 H Creatinine 0.59 L Estim Creat Clear Calc 77 Estimated GFR > 60 Glucose 154 H Lactic Acid Calcium 7.7 L Magnesium Total Bilirubin 0.5 AST 16 ALT 15 Alkaline Phosphatase 58 Total Protein 6.0 L Albumin 3.3 L TSH (Reflex) Free T4 Total T3 Random Cortisol Nasal MRSA (PCR) Influenza A (RT-PCR) Influenza B (RT-PCR) SARS-CoV-2 RNA (RT-PCR)
[2024-07-14] MEDS: cefTRIAXone 2 GM/NS 100 ML 2 GM/100 ML BAG IVPB (14:18)
[2024-07-14] MEDS: ONDANSETRON INJ 4 MG/2 ML VIAL IV PUSH (14:19)
[2024-07-14 16:19] LABS: Lactic Acid Reflex 1.9 mmol/L (0.7-2.0)
[2024-07-14 16:49] LABS: Procalcitonin 12.8 ng/mL
[2024-07-14] MEDS: AZITHROMYCIN 500 MG/NS 250 ML 500 MG/250 ML BAG 250 MG IVPB (17:48)
[2024-07-14] MEDS: METOPROLOL TARTRATE 12.5 MG TABLET BY MOUTH (20:14)
[2024-07-15] VITALS (24 sets, daily range): BP systolic 102–164; BP diastolic 49–88; PULSE 72–102; RESP 16–24; TEMP 36.6–37.1; O2SAT 95–100
[2024-07-15] MEDS: IPRATROPIUM 0.5 MG/ALBUTEROL SULFATE 2.5 MG AMPUL.NEB 3 ML INHALATION ×4 (02:05→20:13)
[2024-07-15] MEDS: SODIUM CHLORIDE 0.9% IV 1,000 ML 75 ML IV CONT (04:09)
[2024-07-15 04:27] LABS: Basophils Percent Auto 0.2 % (0.2-1.2); Eosinophils Percent Auto 0.4 % (0-4.4); Hematocrit 29.2 % (37.0-47.0); Hemoglobin 9.1 g/dL (12.0-15.0); Immature Granulocyte Absolute 0.19 K/mm3 (0.00-0.031); Immature Granulocyte Percent A 1.8 % (0-0.5); Lymphocytes Absolute Auto 1.49 K/mm3 (0.9-3.2); Lymphocytes Percent Auto 14.1 % (18.3-44.2); Mean Corpuscular HGB Conc 31.2 g/dl (32-36); Mean Corpuscular Hemoglobin 30.1 pg (26-34); Mean Corpuscular Volume 96.7 fl (80-100); Mean Platelet Volume 10.2 fl (7.4-10.4); Monocytes Absolute Auto 0.5 K/mm3 (0.1-0.6); Monocytes Percent Auto 5.1 % (2.6-8.5); Neutrophils Absolute Auto 8.3 K/mm3 (1.3-6.7); Neutrophils Percent Auto 78.4 % (45.5-73.1); Platelet Count Result 132 k/mm3 (150-375); Red Blood Count 3.02 M/mm3 (4.2-5.4); Red Cell Distribution Width 12.8 % (11.5-14.5); White Blood Count 10.6 K/mm3 (4.5-10.0)
[2024-07-15 04:38] LABS: Alanine Aminotransferase 11 U/L (6-35); Albumin Level 2.8 g/dL (3.5-5.1); Alkaline Phosphatase 53 U/L (38-126); Anion Gap 5 mmol/L (4-12); Aspartate Amino Transferase 15 U/L (14-36); Bilirubin,Total < 0.1 mg/dL (0.2-1.3); Blood Urea Nitrogen 16 mg/dL (7-17); Calcium 7.7 mg/dL (8.4-10.2); Carbon Dioxide 22 mmol/L (22-30); Chloride 112 mmol/L (98-107); Estimated CRCL calculation 80 ml/min; Estimated Glomerular Filt Rate > 60; Glucose 92 mg/dL (65-110); Magnesium 1.9 mg/dL (1.6-2.3); Potassium 3.6 mmol/L (3.4-5.0); Sodium 139 mmol/L (137-145)
[2024-07-15] MEDS: VANCOMYCIN 1,250 MG/NS 250 ML 1,250 MG/250 ML BAG 166.67 MG IVPB ×2 (06:23→18:28)
[2024-07-15] MEDS: methiMAzole 5 MG TAB PO (08:08)
[2024-07-15] MEDS: METOPROLOL TARTRATE 12.5 MG TABLET BY MOUTH ×2 (08:08→20:31)
[2024-07-15] MEDS: APIXABAN 5 MG TABLET BY MOUTH ×2 (08:08→20:31)
[2024-07-15] MEDS: guaiFENesin 12 HR 600 MG TABCR 1200 MG PO ×2 (08:09→20:31)
[2024-07-15] MEDS: cefTRIAXone 2 GM/NS 100 ML 2 GM/100 ML BAG IVPB (13:26)
--- NOTE | 2024-07-15 13:49 | PM.IMPN ---
Progress Note: A&P Assessment and Plan (1) Sepsis: Code(s): A41.9 - Sepsis, unspecified organism Status: Acute (2) Pneumonia involving right lung: Code(s): J18.9 - Pneumonia, unspecified organism Status: Acute (3) Chronic obstructive pulmonary disease: Code(s): J44.9 - Chronic obstructive pulmonary disease, unspecified Status: Acute (4) Tobacco dependence: Code(s): F17.200 - Nicotine dependence, unspecified, uncomplicated Status: Chronic (5) Essential (primary) hypertension: Code(s): I10 - Essential (primary) hypertension Status: Chronic (6) Paroxysmal atrial fibrillation: Code(s): I48.0 - Paroxysmal atrial fibrillation Status: Acute (7) Chronic anticoagulation: Code(s): Z79.01 - extermination supervisor (current) use of anticoagulants Status: Acute (8) Hyperthyroidism: Code(s): E05.90 - Thyrotoxicosis, unspecified without thyrotoxic crisis or storm Status: Acute Plan This is a 64-year-old female smoker with chronic obstructive pulmonary disease, hypertension, paroxysmal atrial fibrillation on anticoagulation, and hyperthyroidism who presented to the emergency department at the [facility] with complaints of shortness of breath. She has not felt well with several days with symptoms to include fatigue, aches, subjective fever, poor appetite, loose stools, increased shortness of breath from baseline, and a cough productive of brown phlegm. She has been using her nebulizers at home with lesser and lesser benefit. She has not tried any nxgj-qdq-yhewyyv remedies. She denies sick contacts, headache, sore throat, chest pain, pleuritic pain, syncope, near syncope, vomiting, and edema. In the ED: Her blood pressures were as low as 71/50 but did respond to 2 L normal saline bolus. She has been afebrile. Labs at the outside facility were significant for a WBC count of 21.1 with 7% bands, INR 1.4, sodium 135, potassium 3.2, BUN 26, creatinine 1.49, glucose 151, lactic acid 3.4, magnesium 1.5, total bilirubin 2.1, proBNP 7427. Chest x-ray showed suspected subtle right middle lobe pneumonia. Given her sepsis picture, transfer was initiated to [place] for further treatment. sepsis hypotension improed with ivf lactic acidosis resolved right middle lobe pneumonia bacteremia with gpc chains. Identified as Streptococcus pneumoniae. Repeat blood culture in a.m. on IV vancomycin and ceftriaxone. Await sensitivity genoveva with cr 1.49. continue ivf which will be stopped today copd tobacco abuse paroxysmal atrial fibrillation. resume low dose metoprolol hypertension chronic anticoagulation with eliquis hyperthyroidism tsh slightly low. continue methimazole DVT proph: on eliquis code status: full code Subjective Date/time seen: 07/15/24 13:49 Interval history: Feels a little better today. Labs reviewed. Discussed with nursing staff. Remains afebrile. Review of Systems Review of Systems: All systems reviewed & are unremarkable except as noted in HPI and below Exam Narrative: General: Well appearing female in the semi-Borja position in bed. Not in acute distress HEENT: PERRL, EOMI. Sclera anicteric. Dry mucous membranes. Neck: Supple. Respiratory: Respirations are nonlabored and she is speaking in full sentences. Lung sounds are diminished with occasional expiratory wheezing and scattered rhonchi which improved with cough. Cardiovascular: Regular rate and rhythm with S1-S2. Soft systolic murmur at the lower sternal border. Gastrointestinal: Abdomen is soft, nontender, and nondistended with positive bowel sounds. Skin: Warm and dry. Normal capillary refill. Extremities are warm and well perfused. Extremities: No cyanosis, clubbing, or edema. Radial and pedal pulses intact. Neurological: Alert. Cranial nerves 2-12 are grossly intact. No gross focal deficits to casual conversation. Psychiatric: Pleasant and cooperative with appropriate mood and affect. Objective Data Vital Signs Vital Signs: Vital Signs - 24 hr 07/14/24 14:00 07/14/24 16:00 07/14/24 16:00 Temperature Pulse Rate 121 H 121 H Respiratory Rate Blood Pressure Pulse Oximetry 96 Oxygen Delivery Nasal Cannula Oxygen Flow Rate 2 Fraction of Inspired Oxygen 07/14/24 16:01 07/14/24 18:00 07/14/24 19:21 Temperature 98.1 F 98.0 F Pulse Rate 117 H 111 H 108 H Respiratory Rate 22 H 20 Blood Pressure 122/61 122/67 Pulse Oximetry 99 99 Oxygen Delivery Oxygen Flow Rate Fraction of Inspired Oxygen 07/14/24 20:00 07/14/24 20:00 07/14/24 20:14 Temperature Pulse Rate 108 H 108 H 108 H Respiratory Rate 20 Blood Pressure Pulse Oximetry 99 Oxygen Delivery Nasal Cannula Oxygen Flow Rate 2 Fraction of Inspired Oxygen 07/14/24 21:20 07/14/24 21:21 07/14/24 22:00 Temperature Pulse Rate 87 87 86 Respiratory Rate 20 20 Blood Pressure Pulse Oximetry 98 Oxygen Delivery Nasal Cannula Oxygen Flow Rate 2 Fraction of Inspired Oxygen 07/15/24 00:00 07/15/24 00:00 07/15/24 00:00 Temperature 98.3 F Pulse Rate 88 82 82 Respiratory Rate 16 16 Blood Pressure 159/73 H Pulse Oximetry 100 100 Oxygen Delivery Nasal Cannula Oxygen Flow Rate 2 Fraction of Inspired Oxygen 07/15/24 02:00 07/15/24 02:06 07/15/24 03:53 Temperature Pulse Rate 84 80 90 Respiratory Rate 20 20 Blood Pressure Pulse Oximetry 100 Oxygen Delivery Nasal Cannula Oxygen Flow Rate 2 Fraction of Inspired Oxygen 07/15/24 03:53 07/15/24 04:00 07/15/24 05:44 Temperature 98.2 F Pulse Rate 90 86 84 Respiratory Rate 18 Blood Pressure 102/49 L Pulse Oximetry 99 Oxygen Delivery Oxygen Flow Rate Fraction of Inspired Oxygen 07/15/24 07:53 07/15/24 08:00 07/15/24 08:00 Temperature 98.2 F Pulse Rate 84 96 95 Respiratory Rate 24 H Blood Pressure 141/83 H Pulse Oximetry 96 96 Oxygen Delivery Nasal Cannula Oxygen Flow Rate 2 Fraction of Inspired Oxygen 07/15/24 08:08 07/15/24 08:19 07/15/24 08:19 Temperature Pulse Rate 96 89 Respiratory Rate 24 H Blood Pressure Pulse Oximetry 96 Oxygen Delivery Nasal Cannula Oxygen Flow Rate 2 Fraction of Inspired Oxygen 07/15/24 08:28 07/15/24 10:00 07/15/24 11:35 Temperature 98.3 F Pulse Rate 91 75 82 Respiratory Rate 24 H 16 Blood Pressure 164/87 H Pulse Oximetry 98 Oxygen Delivery Oxygen Flow Rate Fraction of Inspired Oxygen 07/15/24 12:00 07/15/24 12:00 Temperature Pulse Rate 96 80 Respiratory Rate Blood Pressure Pulse Oximetry 96 Oxygen Delivery Nasal Cannula Oxygen Flow Rate 2 Fraction of Inspired Oxygen Intake/Output Intake/Output: Intake & Output 07/12/24 07/13/24 07/14/24 07/15/24 23:59 23:59 23:59 23:59 Intake Total 550 1550 1540 Output Total 0 902 600 Balance 550 648 940 Meds/Results Medications: Active Medications Generic Name Dose Route Start Last Admin Trade Name Freq PRN Reason Stop Dose Admin Acetaminophen 650 mg 07/13/24 16:19 07/14/24 11:08 Acetaminophen 325 Mg Tablet PO 650 mg Q6H PRN Administration Mild Pain (1-3) or Fever Albuterol/Ipratropium 3 ml 07/13/24 20:00 07/15/24 08:19 Ipratropium 0.5 Mg/Albuterol Sulfate 2.5 Mg Ampul.Neb 3 Ml INHALATION 3 ml Q6HRT SOHAIL Administration Apixaban 5 mg 07/14/24 09:00 07/15/24 08:08 Apixaban 5 Mg Tablet BY MOUTH 5 mg Q12HR SOHAIL Administration Guaifenesin 1,200 mg 07/13/24 21:00 07/15/24 08:09 Guaifenesin 12 Hr 600 Mg Tabcr PO 1,200 mg Q12HR SOHAIL Administration Azithromycin 500 mg in 250 mls @ 250 mls/hr 07/13/24 18:00 07/14/24 17:48 Zithromax IVPB 250 mls/hr Q24H SOHAIL Administration Ceftriaxone Sodium 2 gm in 100 mls @ 200 mls/hr 07/14/24 13:00 07/15/24 13:26 Rocephin 2 Gm/Ns 100 Ml IVPB 200 mls/hr Q24H SOHAIL Administration Vancomycin HCl 1,250 mg in 250 mls @ 166.667 mls/hr 07/15/24 06:00 07/15/24 06:23 Vancomycin 1,250 Mg/Ns 250 Ml IVPB 166.67 mls/hr Q12H SOHAIL Administration Methimazole 5 mg 07/14/24 09:00 07/15/24 08:08 Methimazole 5 Mg Tab PO 5 mg DAILY SOHAIL Administration Metoprolol Tartrate 12.5 mg 07/14/24 21:00 07/15/24 08:08 Metoprolol Tartrate 12.5 Mg Tablet BY MOUTH 12.5 mg Q12HR SOHAIL Administration Ondansetron HCl 4 mg 07/14/24 14:04 07/14/24 14:19 Ondansetron Inj 4 Mg/2 Ml Vial IV PUSH 4 mg Q6H PRN Administration Nausea And Vomiting Salmeterol Xinafoate 1 puff 07/14/24 08:00 Salmeterol Xinafoate 50 Mcg Diskus INHALATION Q12HRT [facility] Radiology Results: ITS Impressions Chest X-Ray 07/14/24 13:00 Impression: Suggestion of mild haziness right perihilar region. Correlate for subtle/early pneumonia. Labs Labs: Laboratory Results - last 24 hr 07/14/24 07/15/24 15:58 04:12 WBC 10.6 H RBC 3.02 L Hgb 9.1 L Hct 29.2 L MCV 96.7 MCH 30.1 MCHC 31.2 L RDW 12.8 Plt Count 132 L MPV 10.2 Immature Gran % (Auto) 1.8 H Neut % (Auto) 78.4 H Lymph % (Auto) 14.1 L [place] % (Auto) 5.1 Eos % (Auto) 0.4 Baso % (Auto) 0.2 Lymph # (Auto) 1.49 [place] # (Auto) 0.5 Eos # (Auto) 0.0 Baso # (Auto) 0.0 Abs Immat Gran (auto) 0.19 H Absolute Neuts (auto) 8.3 H Absolute Nucleated RBC 0.000 Nucleated RBC % 0.0 Sodium 139 Potassium 3.6 Chloride 112 H Carbon Dioxide 22 Anion Gap 5 BUN 16 Creatinine 0.57 L Estim Creat Clear Calc 80 Estimated GFR > 60 Glucose 92 Lactic Acid 1.9 Calcium 7.7 L Magnesium 1.9 Total Bilirubin < 0.1 L AST 15 ALT 11 Alkaline Phosphatase 53 C-Reactive Protein 20.0 H Total Protein 6.0 L Albumin 2.8 L Procalcitonin 12.8
[2024-07-15] MEDS: AZITHROMYCIN 500 MG/NS 250 ML 500 MG/250 ML BAG 250 MG IVPB (17:35)
[2024-07-16] VITALS (12 sets, daily range): BP systolic 127–165; BP diastolic 60–88; PULSE 68–96; RESP 16–24; TEMP 36.5–36.6; O2SAT 95–99
[2024-07-16 05:17] LABS: Basophils Absolute Auto 0.1 K/mm3 (0.0-0.1); Basophils Percent Auto 0.7 % (0.2-1.2); Eosinophils Absolute Auto 0.2 K/mm3 (0-0.3); Eosinophils Percent Auto 2.1 % (0-4.4); Hematocrit 32.1 % (37.0-47.0); Hemoglobin 10.2 g/dL (12.0-15.0); Immature Granulocyte Absolute 0.12 K/mm3 (0.00-0.031); Immature Granulocyte Percent A 1.6 % (0-0.5); Lymphocytes Absolute Auto 1.58 K/mm3 (0.9-3.2); Lymphocytes Percent Auto 20.8 % (18.3-44.2); Mean Corpuscular HGB Conc 31.8 g/dl (32-36); Mean Corpuscular Hemoglobin 30.2 pg (26-34); Mean Platelet Volume 9.8 fl (7.4-10.4); Monocytes Absolute Auto 0.5 K/mm3 (0.1-0.6); Monocytes Percent Auto 7.1 % (2.6-8.5); Neutrophils Absolute Auto 5.1 K/mm3 (1.3-6.7); Neutrophils Percent Auto 67.7 % (45.5-73.1); Platelet Count Result 152 k/mm3 (150-375); Red Blood Count 3.38 M/mm3 (4.2-5.4); Red Cell Distribution Width 12.5 % (11.5-14.5); White Blood Count 7.6 K/mm3 (4.5-10.0)
[2024-07-16 05:38] LABS: Alanine Aminotransferase 13 U/L (6-35); Albumin Level 3.1 g/dL (3.5-5.1); Alkaline Phosphatase 59 U/L (38-126); Anion Gap 6 mmol/L (4-12); Aspartate Amino Transferase 20 U/L (14-36); Bilirubin,Total 0.3 mg/dL (0.2-1.3); Blood Urea Nitrogen 6 mg/dL (7-17); Carbon Dioxide 27 mmol/L (22-30); Chloride 105 mmol/L (98-107); Estimated CRCL calculation 81 ml/min; Estimated Glomerular Filt Rate > 60; Glucose 94 mg/dL (65-110); Magnesium 1.7 mg/dL (1.6-2.3); Potassium 3.2 mmol/L (3.4-5.0); Sodium 138 mmol/L (137-145)
[2024-07-16 05:56] LABS: Vancomycin Trough 12.5 ug/mL (10.0-20.0)
[2024-07-16] MEDS: VANCOMYCIN 1,500 MG/NS 500 ML 1,500 MG/500 ML BAG 250 MG IVPB ×2 (08:24→20:42)
[2024-07-16] MEDS: METOPROLOL TARTRATE 12.5 MG TABLET BY MOUTH ×2 (08:24→20:42)
[2024-07-16] MEDS: APIXABAN 5 MG TABLET BY MOUTH ×2 (08:24→20:43)
[2024-07-16] MEDS: guaiFENesin 12 HR 600 MG TABCR 1200 MG PO ×2 (08:24→20:43)
[2024-07-16] MEDS: methiMAzole 5 MG TAB PO (08:24)
[2024-07-16] MEDS: IPRATROPIUM 0.5 MG/ALBUTEROL SULFATE 2.5 MG AMPUL.NEB 3 ML INHALATION ×3 (08:28→20:10)
[2024-07-16] MEDS: cefTRIAXone 2 GM/NS 100 ML 2 GM/100 ML BAG IVPB (12:10)
--- NOTE | 2024-07-16 12:38 | PM.IMPN ---
Progress Note: A&P Assessment and Plan (1) Sepsis: Code(s): A41.9 - Sepsis, unspecified organism Status: Acute (2) Pneumonia involving right lung: Code(s): J18.9 - Pneumonia, unspecified organism Status: Acute (3) Chronic obstructive pulmonary disease: Code(s): J44.9 - Chronic obstructive pulmonary disease, unspecified Status: Acute (4) Tobacco dependence: Code(s): F17.200 - Nicotine dependence, unspecified, uncomplicated Status: Chronic (5) Essential (primary) hypertension: Code(s): I10 - Essential (primary) hypertension Status: Chronic (6) Paroxysmal atrial fibrillation: Code(s): I48.0 - Paroxysmal atrial fibrillation Status: Acute (7) Chronic anticoagulation: Code(s): Z79.01 - correction (current) use of anticoagulants Status: Acute (8) Hyperthyroidism: Code(s): E05.90 - Thyrotoxicosis, unspecified without thyrotoxic crisis or storm Status: Acute Plan This is a 64-year-old female smoker with chronic obstructive pulmonary disease, hypertension, paroxysmal atrial fibrillation on anticoagulation, and hyperthyroidism who presented to the emergency department at the [facility] [place] with complaints of shortness of breath. She has not felt well with several days with symptoms to include fatigue, aches, subjective fever, poor appetite, loose stools, increased shortness of breath from baseline, and a cough productive of brown phlegm. She has been using her nebulizers at home with lesser and lesser benefit. She has not tried any [id number]-[id number] remedies. She denies sick contacts, headache, sore throat, chest pain, pleuritic pain, syncope, near syncope, vomiting, and edema. In the ED: Her blood pressures were as low as 71/50 but did respond to 2 L normal saline bolus. She has been afebrile. Labs at the outside facility were significant for a WBC count of 21.1 with 7% bands, INR 1.4, sodium 135, potassium 3.2, BUN 26, creatinine 1.49, glucose 151, lactic acid 3.4, magnesium 1.5, total bilirubin 2.1, proBNP 7427. Chest x-ray showed suspected subtle right middle lobe pneumonia. Given her sepsis picture, transfer was initiated to [place] for further treatment. sepsis hypotension improed with ivf lactic acidosis resolved right middle lobe pneumonia bacteremia with gpc chains. Identified as Streptococcus pneumoniae. Repeat blood culture today on IV vancomycin and ceftriaxone. Await sensitivity genoveva with cr 1.49. continue ivf which has been stopped copd tobacco abuse paroxysmal atrial fibrillation. resume low dose metoprolol hypertension chronic anticoagulation with eliquis hyperthyroidism tsh slightly low. continue methimazole DVT proph: on eliquis code status: full code Subjective Date/time seen: 07/16/24 12:38 Interval history: No overnight events. No new complaints. Feels better. Ready to go home. Review of Systems Review of Systems: All systems reviewed & are unremarkable except as noted in HPI and below Exam Narrative: General: Well appearing female in the semi-Borja position in bed. Not in acute distress HEENT: PERRL, EOMI. Sclera anicteric. Dry mucous membranes. Neck: Supple. Respiratory: Respirations are nonlabored and she is speaking in full sentences. Lung sounds are diminished with occasional expiratory wheezing and scattered rhonchi which improved with cough. Cardiovascular: Regular rate and rhythm with S1-S2. Soft systolic murmur at the lower sternal border. Gastrointestinal: Abdomen is soft, nontender, and nondistended with positive bowel sounds. Skin: Warm and dry. Normal capillary refill. Extremities are warm and well perfused. Extremities: No cyanosis, clubbing, or edema. Radial and pedal pulses intact. Neurological: Alert. Cranial nerves 2-12 are grossly intact. No gross focal deficits to casual conversation. Psychiatric: Pleasant and cooperative with appropriate mood and affect. Objective Data Vital Signs Vital Signs: Vital Signs - 24 hr 07/15/24 14:00 07/15/24 14:21 07/15/24 14:28 Temperature Pulse Rate 102 H 86 80 Respiratory Rate 24 H 24 H Blood Pressure Pulse Oximetry Oxygen Delivery Oxygen Flow Rate Fraction of Inspired Oxygen 07/15/24 16:00 07/15/24 17:37 07/15/24 20:21 Temperature 98.4 F 98.8 F Pulse Rate 89 79 94 Respiratory Rate 24 H 20 22 H Blood Pressure 164/88 H 146/83 H Pulse Oximetry 99 98 Oxygen Delivery Oxygen Flow Rate Fraction of Inspired Oxygen 07/15/24 20:22 07/15/24 20:30 07/15/24 20:31 Temperature Pulse Rate 91 74 72 Respiratory Rate 22 H 22 H Blood Pressure Pulse Oximetry 95 Oxygen Delivery Nasal Cannula Oxygen Flow Rate 2 Fraction of Inspired Oxygen 28 07/15/24 20:31 07/15/24 22:00 07/16/24 06:00 Temperature 97.8 F 98 F Pulse Rate 90 68 Respiratory Rate 18 18 Blood Pressure 109/68 127/60 Pulse Oximetry 98 98 97 Oxygen Delivery Nasal Cannula Oxygen Flow Rate 2 Fraction of Inspired Oxygen 07/16/24 08:00 07/16/24 08:28 07/16/24 08:28 Temperature Pulse Rate 88 Respiratory Rate 24 H Blood Pressure Pulse Oximetry 96 96 Oxygen Delivery Nasal Cannula Nasal Cannula Oxygen Flow Rate 3 3 Fraction of Inspired Oxygen 32 07/16/24 08:37 07/16/24 11:08 Temperature Pulse Rate 91 Respiratory Rate 24 H Blood Pressure Pulse Oximetry 95 Oxygen Delivery Room Air Oxygen Flow Rate Fraction of Inspired Oxygen Intake/Output Intake/Output: Intake & Output 07/13/24 07/14/24 07/15/24 07/16/24 23:59 23:59 23:59 23:59 Intake Total 550 1800 2380 920 Output Total 0 902 600 Balance 152 266 8690 920 Meds/Results Medications: Active Medications Generic Name Dose Route Start Last Admin Trade Name Freq PRN Reason Stop Dose Admin Acetaminophen 650 mg 07/13/24 16:19 07/14/24 11:08 Acetaminophen 325 Mg Tablet PO 650 mg Q6H PRN Administration Mild Pain (1-3) or Fever Albuterol/Ipratropium 3 ml 07/13/24 20:00 07/16/24 08:28 Ipratropium 0.5 Mg/Albuterol Sulfate 2.5 Mg Ampul.Neb 3 Ml INHALATION 3 ml Q6HRT SOHAIL Administration Apixaban 5 mg 07/14/24 09:00 07/16/24 08:24 Apixaban 5 Mg Tablet BY MOUTH 5 mg Q12HR SOHAIL Administration Guaifenesin 1,200 mg 07/13/24 21:00 07/16/24 08:24 Guaifenesin 12 Hr 600 Mg Tabcr PO 1,200 mg Q12HR SOHAIL Administration Azithromycin 500 mg in 250 mls @ 250 mls/hr 07/13/24 18:00 07/15/24 17:35 Zithromax IVPB 250 mls/hr Q24H SOHAIL Administration Ceftriaxone Sodium 2 gm in 100 mls @ 200 mls/hr 07/14/24 13:00 07/16/24 12:10 Rocephin 2 Gm/Ns 100 Ml IVPB 200 mls/hr Q24H SOHAIL Administration Vancomycin HCl 1,500 mg in 500 mls @ 250 mls/hr 07/16/24 08:00 07/16/24 10:24 Vancomycin 1,500 Mg/Ns 500 Ml IVPB Infused Q12H SOHAIL Infusion Methimazole 5 mg 07/14/24 09:00 07/16/24 08:24 Methimazole 5 Mg Tab PO 5 mg DAILY SOHAIL Administration Metoprolol Tartrate 12.5 mg 07/14/24 21:00 07/16/24 08:24 Metoprolol Tartrate 12.5 Mg Tablet BY MOUTH 12.5 mg Q12HR SOHAIL Administration Ondansetron HCl 4 mg 07/14/24 14:04 07/14/24 14:19 Ondansetron Inj 4 Mg/2 Ml Vial IV PUSH 4 mg Q6H PRN Administration Nausea And Vomiting Salmeterol Xinafoate 1 puff 07/14/24 08:00 Salmeterol Xinafoate 50 Mcg Diskus INHALATION Q12HRT [facility] Radiology Results: ITS Impressions Chest X-Ray 07/14/24 13:00 Impression: Suggestion of mild haziness right perihilar region. Correlate for subtle/early pneumonia. Labs Labs: Laboratory Results - last 24 hr 07/16/24 05:10 WBC 7.6 RBC 3.38 L Hgb 10.2 L Hct 32.1 L MCV 95.0 MCH 30.2 MCHC 31.8 L RDW 12.5 Plt Count 152 MPV 9.8 Immature Gran % (Auto) 1.6 H Neut % (Auto) 67.7 Lymph % (Auto) 20.8 [place] % (Auto) 7.1 Eos % (Auto) 2.1 Baso % (Auto) 0.7 Lymph # (Auto) 1.58 [place] # (Auto) 0.5 Eos # (Auto) 0.2 Baso # (Auto) 0.1 Abs Immat Gran (auto) 0.12 H Absolute Neuts (auto) 5.1 Absolute Nucleated RBC 0.000 Nucleated RBC % 0.0 Sodium 138 Potassium 3.2 L Chloride 105 Carbon Dioxide 27 Anion Gap 6 BUN 6 L D Creatinine 0.56 L Estim Creat Clear Calc 81 Estimated GFR > 60 Glucose 94 Calcium 8.0 L Magnesium 1.7 Total Bilirubin 0.3 AST 20 ALT 13 Alkaline Phosphatase 59 Total Protein 6.0 L Albumin 3.1 L Vancomycin Trough 12.5
[2024-07-16] MEDS: AZITHROMYCIN 500 MG/NS 250 ML 500 MG/250 ML BAG 250 MG IVPB (17:07)
[2024-07-16 19:03] LABS: Pneumococcal Antigen Urine DETECTED
[2024-07-17] VITALS (9 sets, daily range): BP systolic 132–146; BP diastolic 78–80; PULSE 74–94; RESP 16–20; TEMP 36.6–36.9; O2SAT 91–98
[2024-07-17] MEDS: IPRATROPIUM 0.5 MG/ALBUTEROL SULFATE 2.5 MG AMPUL.NEB 3 ML INHALATION ×3 (01:57→14:24)
[2024-07-17 06:15] LABS: Estimated CRCL calculation 92 ml/min; Estimated Glomerular Filt Rate > 60
[2024-07-17] MEDS: VANCOMYCIN 1,500 MG/NS 500 ML 1,500 MG/500 ML BAG 250 MG IVPB (07:57)
[2024-07-17] MEDS: ACETAMINOPHEN 325 MG TABLET 650 MG PO (08:01)
[2024-07-17] MEDS: METOPROLOL TARTRATE 12.5 MG TABLET BY MOUTH (08:02)
[2024-07-17] MEDS: methiMAzole 5 MG TAB PO (08:02)
[2024-07-17] MEDS: guaiFENesin 12 HR 600 MG TABCR 1200 MG PO (08:02)
[2024-07-17] MEDS: APIXABAN 5 MG TABLET BY MOUTH (08:02)
[2024-07-17] MEDS: ONDANSETRON INJ 4 MG/2 ML VIAL IV PUSH (08:05)
--- NOTE | 2024-07-17 11:23 | P.PNIM_ITS ---
Progress Note: A&P Assessment and Plan (1) Sepsis: Code(s): A41.9 - Sepsis, unspecified organism Status: Acute (2) Pneumonia involving right lung: Code(s): J18.9 - Pneumonia, unspecified organism Status: Acute (3) Chronic obstructive pulmonary disease: Code(s): J44.9 - Chronic obstructive pulmonary disease, unspecified Status: Acute (4) Tobacco dependence: Code(s): F17.200 - Nicotine dependence, unspecified, uncomplicated Status: Chronic (5) Essential (primary) hypertension: Code(s): I10 - Essential (primary) hypertension Status: Chronic (6) Paroxysmal atrial fibrillation: Code(s): I48.0 - Paroxysmal atrial fibrillation Status: Acute (7) Chronic anticoagulation: Code(s): Z79.01 - senior living (current) use of anticoagulants Status: Acute (8) Hyperthyroidism: Code(s): E05.90 - Thyrotoxicosis, unspecified without thyrotoxic crisis or storm Status: Acute Plan This is a 64-year-old female smoker with chronic obstructive pulmonary disease, hypertension, paroxysmal atrial fibrillation on anticoagulation, and hyperthyroidism who presented [place] [facility] [place] of shortness of breath. She has not felt well with several days with symptoms to include fatigue, aches, subjective fever, poor appetite, loose stools, increased shortness of breath from baseline, and a cough productive of brown phlegm. She has been using her nebulizers at home with lesser and lesser benefit. She has not tried any [id number] remedies. She denies sick contacts, headache, sore throat, chest pain, pleuritic pain, syncope, near syncope, vomiting, and edema. In the ED: Her blood pressures were as low as 71/50 but did respond to 2 L normal saline bolus. She has been afebrile. Labs at the outside facility were significant for a WBC count of 21.1 with 7% bands, INR 1.4, sodium 135, potassium 3.2, BUN 26, creatinine 1.49, glucose 151, lactic acid 3.4, magnesium 1.5, total bilirubin 2.1, proBNP 7427. Chest x-ray showed suspected subtle right middle lobe pneumonia. Given her sepsis picture, transfer was initiated to [place] for further treatment. sepsis hypotension improed with ivf lactic acidosis resolved right middle lobe pneumonia bacteremia with gpc chains. Identified as Streptococcus pneumoniae. Repeat blood culture today on IV vancomycin and ceftriaxone. Await sensitivity genoveva with cr 1.49. continue ivf which has been stopped copd tobacco abuse paroxysmal atrial fibrillation. resume low dose metoprolol hypertension chronic anticoagulation with eliquis hyperthyroidism tsh slightly low. continue methimazole DVT proph: on eliquis code status: full code Subjective Date/time seen: 07/17/24 11:23 Interval history: Feels better no complaints wants to go home awaiting culture report Review of Systems Review of Systems: All systems reviewed & are unremarkable except as noted in HPI and below Exam Narrative: General: Well appearing female in the semi-Borja position in bed. Not in acute distress HEENT: PERRL, EOMI. Sclera anicteric. Dry mucous membranes. Neck: Supple. Respiratory: Respirations are nonlabored and she is speaking in full sentences. Lung sounds are diminished with occasional expiratory wheezing and scattered rhonchi which improved with cough. Cardiovascular: Regular rate and rhythm with S1-S2. Soft systolic murmur at the lower sternal border. Gastrointestinal: Abdomen is soft, nontender, and nondistended with positive bowel sounds. Skin: Warm and dry. Normal capillary refill. Extremities are warm and well perfused. Extremities: No cyanosis, clubbing, or edema. Radial and pedal pulses intact. Neurological: Alert. Cranial nerves 2-12 are grossly intact. No gross focal deficits to casual conversation. Psychiatric: Pleasant and cooperative with appropriate mood and affect. Objective Data Vital Signs Vital Signs: Vital Signs - 24 hr 07/16/24 14:00 07/16/24 14:38 07/16/24 14:38 Temperature 97.7 F Pulse Rate 72 87 Respiratory Rate 20 20 Blood Pressure 165/88 H Pulse Oximetry 99 95 Oxygen Delivery Room Air Fraction of Inspired Oxygen 07/16/24 14:45 07/16/24 20:10 07/16/24 20:21 Temperature Pulse Rate 74 96 96 Respiratory Rate 20 16 16 Blood Pressure Pulse Oximetry Oxygen Delivery Fraction of Inspired Oxygen 07/16/24 20:29 07/16/24 22:00 07/17/24 01:57 Temperature 97.7 F Pulse Rate 81 94 Respiratory Rate 24 H 16 Blood Pressure 148/65 H Pulse Oximetry 99 98 Oxygen Delivery Room Air Fraction of Inspired Oxygen 07/17/24 02:10 07/17/24 06:00 07/17/24 08:00 Temperature 97.8 F Pulse Rate 94 88 Respiratory Rate 16 20 Blood Pressure 146/80 H Pulse Oximetry 91 Oxygen Delivery Room Air Fraction of Inspired Oxygen 07/17/24 08:02 07/17/24 08:11 07/17/24 08:11 Temperature Pulse Rate 89 91 Respiratory Rate 20 Blood Pressure Pulse Oximetry 92 Oxygen Delivery Room Air Fraction of Inspired Oxygen 07/17/24 08:20 Temperature Pulse Rate 81 Respiratory Rate 20 Blood Pressure Pulse Oximetry Oxygen Delivery Fraction of Inspired Oxygen Intake/Output Intake/Output: Intake & Output 07/14/24 07/15/24 07/16/24 07/17/24 23:59 23:59 23:59 23:59 Intake Total 1800 2630 2800 240 Output Total 902 600 Balance 898 2030 2800 240 Meds/Results Medications: Active Medications Generic Name Dose Route Start Last Admin Trade Name Freq PRN Reason Stop Dose Admin Acetaminophen 650 mg 07/13/24 16:19 07/17/24 08:01 Acetaminophen 325 Mg Tablet PO 650 mg Q6H PRN Administration Mild Pain (1-3) or Fever Albuterol/Ipratropium 3 ml 07/13/24 20:00 07/17/24 08:10 Ipratropium 0.5 Mg/Albuterol Sulfate 2.5 Mg Ampul.Neb 3 Ml INHALATION 3 ml Q6HRT SOHAIL Administration Apixaban 5 mg 07/14/24 09:00 07/17/24 08:02 Apixaban 5 Mg Tablet BY MOUTH 5 mg Q12HR SOHAIL Administration Guaifenesin 1,200 mg 07/13/24 21:00 07/17/24 08:02 Guaifenesin 12 Hr 600 Mg Tabcr PO 1,200 mg Q12HR SOHAIL Administration Azithromycin 500 mg in 250 mls @ 250 mls/hr 07/13/24 18:00 07/16/24 18:07 Zithromax IVPB Infused Q24H SOHAIL Infusion Ceftriaxone Sodium 2 gm in 100 mls @ 200 mls/hr 07/14/24 13:00 07/16/24 12:40 Rocephin 2 Gm/Ns 100 Ml IVPB Infused Q24H SOHAIL Infusion Vancomycin HCl 1,500 mg in 500 mls @ 250 mls/hr 07/16/24 08:00 07/17/24 07:57 Vancomycin 1,500 Mg/Ns 500 Ml IVPB 250 mls/hr Q12H SOHAIL Administration Methimazole 5 mg 07/14/24 09:00 07/17/24 08:02 Methimazole 5 Mg Tab PO 5 mg DAILY SOHAIL Administration Metoprolol Tartrate 12.5 mg 07/14/24 21:00 07/17/24 08:02 Metoprolol Tartrate 12.5 Mg Tablet BY MOUTH 12.5 mg Q12HR SOHAIL Administration Ondansetron HCl 4 mg 07/14/24 14:04 07/17/24 08:05 Ondansetron Inj 4 Mg/2 Ml Vial IV PUSH 4 mg Q6H PRN Administration Nausea And Vomiting Salmeterol Xinafoate 1 puff 07/14/24 08:00 Salmeterol Xinafoate 50 Mcg Diskus INHALATION Q12HRT [facility] Radiology Results: ITS Impressions Chest X-Ray 07/14/24 13:00 Impression: Suggestion of mild haziness right perihilar region. Correlate for subtle/early pneumonia. Labs Labs: Laboratory Results - last 24 hr 07/13/24 07/17/24 18:55 05:54 Creatinine 0.48 L Estim Creat Clear Calc 92 Estimated GFR > 60 Urine Pneumococcal Ag Detected A
[2024-07-17] MEDS: cefTRIAXone 2 GM/NS 100 ML 2 GM/100 ML BAG IVPB (12:42)
[2024-07-17 13:23] LABS: Magnesium 1.7 mg/dL (1.6-2.3); Potassium 3.2 mmol/L (3.4-5.0)
[2024-07-17 14:05] LABS: MRSA (PCR) NOT DETECTED (NOT DETECTE)
[2024-07-17] MEDS: POTASSIUM CHLORIDE 20 MEQ ER TABLET 40 MEQ PO (14:17)
[2024-07-17] MEDS: MAGNESIUM SULF 2 GM/WATER 50ML 2 GM/50 ML BAG IVPB (14:18)
--- NOTE | 2024-07-17 14:35 | PM.DS ---
DS: Admitting Diagnosis Discharge Date 07/17/2024 Admitting Diagnosis Shortness of breath DS: Discharge Diagnosis Discharge Diagnosis (1) Sepsis: Code(s): A41.9 - Sepsis, unspecified organism Status: Acute (2) Pneumonia involving right lung: Code(s): J18.9 - Pneumonia, unspecified organism Status: Acute (3) Chronic obstructive pulmonary disease: Code(s): J44.9 - Chronic obstructive pulmonary disease, unspecified Status: Acute (4) Tobacco dependence: Code(s): F17.200 - Nicotine dependence, unspecified, uncomplicated Status: Chronic (5) Essential (primary) hypertension: Code(s): I10 - Essential (primary) hypertension Status: Chronic (6) Paroxysmal atrial fibrillation: Code(s): I48.0 - Paroxysmal atrial fibrillation Status: Acute (7) Chronic anticoagulation: Code(s): Z79.01 - alf (current) use of anticoagulants Status: Acute (8) Hyperthyroidism: Code(s): E05.90 - Thyrotoxicosis, unspecified without thyrotoxic crisis or storm Status: Acute DS: Summary Hospital Course Hospital Course: This is a 64-year-old female smoker with chronic obstructive pulmonary disease, hypertension, paroxysmal atrial fibrillation on anticoagulation, and hyperthyroidism who presented to the emergency department at the [facility] [place] with complaints of shortness of breath. She has not felt well with several days with symptoms to include fatigue, aches, subjective fever, poor appetite, loose stools, increased shortness of breath from baseline, and a cough productive of brown phlegm. She has been using her nebulizers at home with lesser and lesser benefit. She has not tried any kgbp-mum-fwtsksa remedies. She denies sick contacts, headache, sore throat, chest pain, pleuritic pain, syncope, near syncope, vomiting, and edema. In the ED: Her blood pressures were as low as 71/50 but did respond to 2 L normal saline bolus. She has been afebrile. Labs at the outside facility were significant for a WBC count of 21.1 with 7% bands, INR 1.4, sodium 135, potassium 3.2, BUN 26, creatinine 1.49, glucose 151, lactic acid 3.4, magnesium 1.5, total bilirubin 2.1, proBNP 7427. Chest x-ray showed suspected subtle right middle lobe pneumonia. Given her sepsis picture, transfer was initiated to [place] for further treatment. sepsis hypotension improed with ivf lactic acidosis resolved right middle lobe pneumonia bacteremia with gpc chains. Identified as Streptococcus pneumoniae. Repeat blood culture today on IV vancomycin and ceftriaxone. Sensitivity back with jacques sensitivity. Will switch to Augmentin for 6 more days to complete 10 days course genoveva with cr 1.49. continue ivf which has been stopped copd tobacco abuse paroxysmal atrial fibrillation. resume low dose metoprolol hypertension chronic anticoagulation with eliquis hyperthyroidism tsh slightly low. continue methimazole DVT proph: on eliquis code status: full code Time Spent with Patient Time attestation: Total time spent providing and/or coordinating discharge services: 35 minutes Exam Narrative: General: Well appearing female in the semi-Borja position in bed. Not in acute distress HEENT: PERRL, EOMI. Sclera anicteric. Dry mucous membranes. Neck: Supple. Respiratory: Respirations are nonlabored and she is speaking in full sentences. Lung sounds are diminished with occasional expiratory wheezing and scattered rhonchi which improved with cough. Cardiovascular: Regular rate and rhythm with S1-S2. Soft systolic murmur at the lower sternal border. Gastrointestinal: Abdomen is soft, nontender, and nondistended with positive bowel sounds. Skin: Warm and dry. Normal capillary refill. Extremities are warm and well perfused. Extremities: No cyanosis, clubbing, or edema. Radial and pedal pulses intact. Neurological: Alert. Cranial nerves 2-12 are grossly intact. No gross focal deficits to casual conversation. Psychiatric: Pleasant and cooperative with appropriate mood and affect. DS: Data Data Completed and Pending Labs on day of discharge: Labs from last 24 hours 07/17/24 07/17/24 07/17/24 12:41 05:54 05:52 Potassium 3.2 L Creatinine 0.48 L Estim Creat Clear Calc 92 Estimated GFR > 60 Magnesium 1.7 Nasal MRSA (PCR) Not detected Urine Pneumococcal Ag 07/13/24 18:55 Potassium Creatinine Estim Creat Clear Calc Estimated GFR Magnesium Nasal MRSA (PCR) Urine Pneumococcal Ag Detected A Imaging Radiologist's impression: ITS Impressions Chest X-Ray 07/14/24 13:00 Impression: Suggestion of mild haziness right perihilar region. Correlate for subtle/early pneumonia. Discharge Plan Discharge Attending physician on discharge: Jose Cruz Orantes Discharging Clinician: Jose Cruz Orantes Anticipated Discharge Date/Time: 07/17/24 14:37 Patient Disposition: Home Activity: as tolerated Diet: regular Patient Instructions: Antibiotic Form Patient Language: Panamanian Stand Alone Forms: General Discharge Information Follow-up/Referrals: Francie Pa APRN [Primary Care Provider] - 1 Week Discharge Medications: New guaifenesin [Mucus Relief ER] 600 mg Tablet Extended Release 12hr 1,200 mg PO Q12HR Qty: 10 0RF amoxicillin-pot clavulanate 875-125 mg tablet 1 tablet PO Q8H Qty: 18 0RF Continued ipratropium bromide 0.02 % solution 2.5 ml inhalation Q6H PRN (Reason: shortness of breath or wheezing) Qty: 300 5RF albuterol sulfate 2.5 mg /3 mL (0.083 %) solution for nebulization 2.5 mg inhalation BID PRN (Reason: shortness of breath or wheezing) Qty: 180 5RF formoterol fumarate [Perforomist] 20 mcg/2 mL solution for nebulization 2 ml inhalation BID Qty: 120 5RF albuterol sulfate 90 mcg/actuation HFA aerosol inhaler 1 - 2 inh inhalation Q4-6H PRN (Reason: shortness of breath or wheezing) Qty: 8.5 2RF methimazole 5 mg tablet 5 mg PO DAILY Qty: 240 2RF losartan 100 mg tablet See Rx Instructions .ROUTE .COMPLEX Qty: 100 2RF Dose Instruction: TAKE 1 TABLET BY MOUTH ONCE DAILY Rx Instructions: TAKE 1 TABLET BY MOUTH ONCE DAILY metoprolol tartrate 75 mg tablet See Rx Instructions .ROUTE .COMPLEX Qty: 180 1RF Dose Instruction: Take 1 tablet by mouth twice daily Rx Instructions: Take 1 tablet by mouth twice daily Eliquis 5 mg tablet See Rx Instructions .ROUTE .COMPLEX Qty: 60 0RF Dose Instruction: Take 1 tablet by mouth twice daily Rx Instructions: Take 1 tablet by mouth twice daily Date of admission: 07/14/24 10:49 Primary Care Provider: Francie Pa Admitting Provider: Timbo Benz Attending physician on admission: Timbo Benz Condition: Improved
[2024-07-17 18:19] LABS: Mycoplasma IgM Antibody Titer 146 U/mL
[2024-07-22 21:54] LABS: Legionella pneumophila Ag Ur NOT DETECTED
== END 2024-07-17 15:30 | disposition home or self-care (01) | DRG 871 ==
LOC: ANHIMU 07-14 08:25 → ANH3MEDSUR 07-17 14:37 → ANHIMU 07-18 16:29
PROVIDERS: Physician Assistant; Admitting Provider Internal Medicine; PCP Nurse Practitioner Family; Visit Provider Internal Medicine
DX: A41.9 Sepsis, unspecified organism (principal); J18.9 Pneumonia, unspecified organism; J44.0 Chronic obstructive pulmonary disease with (acute) lower respiratory infection; N17.9 Acute kidney failure, unspecified; I48.0 Paroxysmal atrial fibrillation; I10 Essential (primary) hypertension; E05.90 Thyrotoxicosis, unspecified without thyrotoxic crisis or storm; F17.210 Nicotine dependence, cigarettes, uncomplicated; K21.9 Gastro-esophageal reflux disease without esophagitis; K57.90 Diverticulosis of intestine, part unspecified, without perforation or abscess without bleeding; Z79.01 Long term (current) use of anticoagulants; Z90.49 Acquired absence of other specified parts of digestive tract; Z90.710 Acquired absence of both cervix and uterus
CPT/HCPCS: 36415; 71045; 80048; 80053; 80202; 82533; 82565; 83605; 83735; 84132; 84145; 84439; 84443; 84480; 85025; 85027; 85055; 86140; 86738; 87070; 87205; 87449; 87636; 87641; 87899; 94640; 96365; A9270; G0378; J0456; J0696; J2405; J3370; J3475; J7030; J7040

== ENCOUNTER 2024-08-24 09:19 | Outpatient (CLI) | payer MEDICARE, MEDICAID, SELFPAY ==
--- OUTSIDE RECORDS SUMMARY | 2024-08-24 09:22 | XMS_ITS | Clinical Summary ---
Author Organization [facility] Address [address] [place] [address] Care Team Providers Care Boom Supervisor Name Role Phone Unavailable Primary Care Provider Unavailabl e Source Comments [facility],non-owned Affiliates and Associated Physician Practices is amultiple site organization consisting of ambulatory clinics and hospital sitesin [place], [place], [place] and [place]. This disclosure is being madepursuant to the Care Everywhere program and may not contain all information available regarding this patient. Last updated 17.[facility] [employer] Active Problems Problem Noted Date Diagnosed Date [...]
--- OUTSIDE RECORDS SUMMARY | 2024-08-24 09:22 | XMS_ITS | Encounter Summary ---
Author Organization [facility] Address [address] [place] [address] Care Team Providers Care Senior Environmental Consultant Name Role Phone Unavailable Primary Care Provider Unavailabl e Encounter Details Date Type Department Care Team (Late st Contact Info) Description 11/01/2023 Hospital Encounter [facility] [address] [place] [address] Madisyn Cook MD [address] [place] [address] Cardiology Social History Tobacco Use Types Packs/Day [...]
[2024-08-24 09:58] LABS: Alanine Aminotransferase 16 U/L (6-35); Albumin Level 4.1 g/dL (3.5-5.1); Alkaline Phosphatase 73 U/L (38-126); Anion Gap 5 mmol/L (4-12); Aspartate Amino Transferase 23 U/L (14-36); Bilirubin,Total 0.5 mg/dL (0.2-1.3); Blood Urea Nitrogen 14 mg/dL (7-17); Calcium 8.7 mg/dL (8.4-10.2); Carbon Dioxide 27 mmol/L (22-30); Chloride 109 mmol/L (98-107); Estimated Glomerular Filt Rate > 60; Glucose 106 mg/dL (65-110); Osmolality Calculated 292 mOsm/kg (285-295); Potassium 4.5 mmol/L (3.4-5.0); Sodium 141 mmol/L (137-145); Total Protein 7.2 g/dL (6.3-8.2)
[2024-08-24 10:34] LABS: Free T4 Free Thyroxine 1.15 ng/dL (0.78-2.19)
[2024-08-26 05:49] LABS: Total Triiodothyronine (T3) 108 ng/dL (76-181)
== END 2024-08-24 09:20 | disposition home or self-care (01) ==
PROVIDERS: PCP Nurse Practitioner Family; Visit Provider Internal Medicine
DX: E05.90 Thyrotoxicosis, unspecified without thyrotoxic crisis or storm (principal)
CPT/HCPCS: 36415; 80053; 84439; 84443; 84480

== ENCOUNTER 2024-09-19 12:15 | Outpatient (CLI) | payer MEDICARE, MEDICAID, SELFPAY ==
--- NOTE | ~2024-09-19 | CT_ITS ---
CT Scan of the Chest without Contrast: Clinical Indication: Lung cancer screening, nicotine dependence Technique: Contiguous sections were acquired throughout the chest without intravenous contrast. Dose reduction technique was used on this scan by utilizing automated exposure control and iterative recon struction technique. The dose-length product (DLP) was 92.20 mGy-cm. COMPARISON: 09/16/2023 Findings: There is no evidence of any significant mediastinal, hilar or axillary lymphadenopathy. Coronary calc ifications are present. There is no evidence of pleural or pericardial effusion. The lungs are clear. No pulmonary nodules or infiltrates are noted. Images through the upper abdomen reveal no abnormalities. Impression: Lung RADS 1: Negative. 12 month follow-up screening CT advised. Reviewed, dictated and finalized at location . Impression: Lung RADS 1: Negative. 12 month follow-up screening CT advised.
== END 2024-09-19 12:16 | disposition home or self-care (01) ==
LOC: CHSIMG 12:16
PROVIDERS: PCP Nurse Practitioner Family; Visit Provider Nurse Practitioner Family
DX: Z12.2 Encounter for screening for malignant neoplasm of respiratory organs (principal); Z87.891 Personal history of nicotine dependence
CPT/HCPCS: 71271

== ENCOUNTER 2025-02-20 12:12 | Outpatient (CLI) | payer MEDICARE, MEDICAID, SELFPAY ==
--- NOTE | 2025-02-20 12:20 | ECHO_ITS ---
Patient Info Name: Mercy Martinez Age: 64 years : 1960 Gender: Female Ht: 62 in Wt: 179 lbs BSA: 1.92 m2 HR: 65 bpm BP: 132 / 83 mmHg Technical Quality: Good Exam Date: 02/20/2025 12:28 PM Patient Status: O Admit Date: 02/20/2025 Exam Type: CA echo doppler color flow Complete two-dimensional, color flow and Doppler transthoracic echocardiogram is performed. Rd Project Manager: Celia Killian Attending Provider: Brandon Weinstein DO Summary 1. Complete two-dimensional, color flow and Doppler transthoracic echocardiogram is performed. 2. Left ventricular chamber dimension is normal. 3. Left ventricular systolic function is normal, estimated at 65-70. 4. The left ventricular diastolic function is grade I diastolic dysfunction. 5. E/e' 7 is not elevated. 6. There is mild aortic valve sclerosis. 7. There is trace aortic valve regurgitation. 8. The mitral valve has a mildly calcified annulus. 9. There is trace tricuspid valve regurgitation. 10. No pulmonary hypertension, estimated pulmonary arterial systolic pressure is 38 mmHg. Left Ventricle E/e' 7 is not elevated. Left ventricular chamber dimension is normal. Left ventricular systolic function is normal, estimated at 65-70. The left ventricular diastolic function is grade I diastolic dysfunction. Right Ventricle Right ventricular chamber dimension is normal. Right ventricular systolic function is normal. Left Atria Left atrial chamber dimension is normal. Right Atria Right atrial chamber dimension is normal. Aortic Valve The aortic valve is trileaflet. There is mild aortic valve sclerosis. There is no aortic valve stenosis. There is trace aortic valve regurgitation. Pulmonic Valve There is no pulmonic regurgitation. Mitral Valve The mitral valve has a mildly calcified annulus. There is no mitral valve stenosis. There is no mitral valve regurgitation. Tricuspid Valve There is trace tricuspid valve regurgitation. No pulmonary hypertension, estimated pulmonary arterial systolic pressure is 38 mmHg. Pericardium/Pleural There is no pericardial effusion. Inferior Vena Cava Normal inferior vena cava with >50% collapse upon inspiration consistent with normal right atrial pressure, 5 mmHg. Aorta The aortic root size at the sinus of Valsalva is normal. Left Ventricular Outflow Tract Name Value Normal LVOT 2D LVOT Diameter 2.0 cm LVOT Doppler LVOT Peak Velocity 96 cm/s LVOT Peak Gradient 4 mmHg LVOT Mean Gradient 2 mmHg LVOT VTI 20 cm LVOT Stroke Volume 62 ml LVOT CO 4.0 l/min LVOT CI 2.1 l/min/m2 Pulmonic Valve Name Value Normal RVOT Doppler RVOT Peak Velocity 70 cm/s RVOT Peak Gradient 2 mmHg PV Doppler PV Peak Velocity 96 cm/s PV Peak Gradient 4 mmHg Mitral Valve Name Value Normal MV Diastolic Function MV E Peak Velocity 47 cm/s MV A Peak Velocity 56 cm/s MV E/A 0.8 MV Decel Time (PW) 243 ms MV Annular TDI MV E/e' (Septal) 8.1 MV E/e' (Lateral) 6.7 MV E/e' (Average) 7.4 Tricuspid Valve Name Value Normal TV Regurgitation Doppler TR Peak Velocity 287 cm/s TR Peak Gradient 27 mmHg Estimated PAP/RSVP RA Pressure 5 mmHg <=5 PA Systolic Pressure 38 mmHg <36 RV Systolic Pressure 38 mmHg <36 Aortic Valve Name Value Normal AV Doppler AV Peak Velocity 117 cm/s AV Peak Gradient 6 mmHg AV Area (Cont Eq Mekhi) 2.5 cm2 AV DI (Mekhi) 0.81 AV Regurgitation 2D LVOT Area 3.1 cm2 Ventricles Name Value Normal LV Dimensions 2D/MM IVS Diastolic Thickness (2D) 0.8 cm 0.6-1.0 LVID Diastole (2D) 4.6 cm 3.8-5.2 LVIW Diastolic Thickness (2D) 0.7 cm 0.6-0.9 LVID Systole (2D) 2.9 cm 2.2-3.5 LVOT Diameter 2.0 cm LV Mass (2D Cubed) 113.30 g 67.00-162.00 LV Mass Index (2D Cubed) 59 g/m2 43-95 Relative Wall Thickness (2D) 0.32 <=0.42 LV Fractional Shortening/Ejection Fraction 2D/MM LV Fractional Shortening (2D) 37 % 27-45 LV EF (2D Teichholz) 66 % LV Diastolic Volume (4C MOD) 71 ml LV EF (4C MOD) 65 % LV Diastolic Volume (2C MOD) 68 ml LV EF (2C MOD) 60 % LV Diastolic Volume (BP MOD) 72 ml 46-106 LV Diastolic Volume Index (BP MOD) 37 ml/m2 29-61 LV Systolic Volume (BP MOD) 26 ml 14-42 LV Systolic Volume Index (BP MOD) 14 ml/m2 8-24 LV EF (BP MOD) 64 % 54-74 LV Diastolic Length (4C) 7.2 cm LV Systolic Length (4C) 5.9 cm LV Stroke Volume (4C MOD) 46 ml Atria Name Value Normal LA Dimensions LA Volume (4C A-L) 44 ml LA Volume (BP A-L) 54 ml RA Dimensions RA Systolic [place] Length (4C) 5.8 cm 2.2-2.8 RA Area (4C) 15.9 cm2 <=18.0 Report Signatures
--- OUTSIDE RECORDS SUMMARY | 2025-02-20 13:43 | XMS_ITS | Encounter Summary ---
Author Organization [facility] Address [address] [place] [address] Care Team Providers Care Software Business Analyst Name Role Phone Chapo Muniz MD Unavailable Unavailab le Nikita Campa MD Primary Care Provider [phone] Encounter Details Date Type Department Care Team (Late st Contact Info) Description 09/03/2018 Abstract SFL CONVERSION [address] [place] [address] , Generic Conversion, Social History Tobacco Use [...] Rule Out 05/20/2021 05/20/2021 05/20/2021 12:02 PM CARE NAVIGATOR documented as of this encounter Care Teams Software Business Analyst Relationship Specialty Start Date End Date Nikita Campa MD [address] [place] [address] PCP - General FAMILY PRACTICE 04/05/17 Chapo Muniz MD CARDIOVASCULAR DISEASE 04/05/17 documented as of this encounter
--- OUTSIDE RECORDS SUMMARY | 2025-02-20 13:43 | XMS_ITS | Clinical Summary ---
Author Organization [facility] Address [address] [place] [address] Care Team Providers Care Rayon Winder Name Role Phone Unavailable Primary Care Provider Unavailabl e Source Comments [facility],non-owned Affiliates and Associated Physician Practices is amultiple site organization consisting of ambulatory clinics and hospital sitesin [place], [place], [place] and [place]. This disclosure is being madepursuant to the Care Everywhere program and may not contain all information available regarding this patient. Last updated 17.[facility] [employer] Active Problems Problem Noted Date Diagnosed Date [...] SCREENING 1960 LIPID TESTING 1960 MAMMOGRAM 1960 HIV SCREENING 1975 HEPATITIS C SCREENING 05/18/1978 DTAP/TDAP/TD VACCINES (1 - Tdap) 1979 Cervical Cancer Screening 1981 PAP SMEAR 1981 PAP with HPV 1990 PNEUMOCOCCAL VACCINE 50+ (1 of 1 - PCV) 2010 ZOSTER VACCINE (1 of 2) 2010 DEPRESSION SCREENING 03/29/2024 COVID-19 VACCINE (2024-2 6 season) 2024 INFLUENZA VACCINE (#1) 2024 Respiratory Syncytial Virus (RSV) Vaccine Pt: [...] patient's age to complete this topic Insurance MEDICAID - OUT OF STATE
--- OUTSIDE RECORDS SUMMARY | 2025-02-20 13:43 | XMS_ITS | Clinical Summary ---
Author Organization [facility] Address [address] [place] [address] Care Team Providers Care Hospital Orderly Name Role Phone Chapo Muniz MD Unavailable Unavailab Nikita Nicole MD Primary Care Provider [phone] Allergies No known active allergies Medications albuterol [...] Comments Blood Pressure 145/93 05/24/2023 10:54 AM AUTOMATIC GLUING MACHINE OPERATOR Pulse 91 05/24/2023 10:54 AM AUTOMATIC GLUING MACHINE OPERATOR Temperature 36.2 C (97.2 F) 05/24/2023 9:06 AM AUTOMATIC GLUING MACHINE OPERATOR Respiratory Rate 18 05/24/2023 9:06 AM AUTOMATIC GLUING MACHINE OPERATOR Oxygen Saturation 92% 05/24/2023 10:54 AM AUTOMATIC GLUING MACHINE OPERATOR Inhaled Oxygen Concentration - - Weight 58.1 kg (128 lb) 05/14/2023 1:23 PM AUTOMATIC GLUING MACHINE OPERATOR Height 157.5 cm (5' 2) 05/14/2023 1:23 PM AUTOMATIC GLUING MACHINE OPERATOR Body Mass Index 23.41 05/14/2023 1:23 PM AUTOMATIC GLUING MACHINE OPERATOR Plan of Treatment Health Maintenance Due Date Last Done Comments Cervical Cancer Screening Pa p Smear (Age 30 to 64) Every 3 Years 1960 Colorectal Cancer Screening Colonoscopy (10 Years) 1960 Annual Physical 1963 Hepatitis C 1978 DTaP, Tdap and Td Vaccines ( 1 - Tdap) 1979 Pneumococcal Vaccine: 50+ Years (1 of 2 - PCV) 1979 Cervical Cancer Screening Pa p with HPV Testing (Age 30 to 64) Every 5 Years 1990 Cervical Cancer Screening wi th HPV 1990 Mammogram Screening 2000 Zoster Vaccines (1 of 2) 2010 COVID-19 Vaccine (2024-2 6 season) 2024 Influenza Adult (#1) 2024 04/16/2021, 04/14/2017 RSV Immunization or 60+ Years (1 - 1-dose 75+ series) 2035 Hepatitis A Vaccines Aged Out No long er eligible based on patient's age to complete this topic Meningococcal B Vaccine Aged Out No l onger eligible based on patient's age to complete this topic Meningococcal Vaccine Aged Out No rubén arpit eligible based on patient's age to complete this topic RSV Immunizations Under 20 Months Aged Out No longer eligible b ased on patient's age to complete this topic Medical Devices Implanted Type Area Verifying Machine Operator Device Identifier Shelf Expiration Date Model / Serial / Lot 1-Piece Iol With [employer] Simplicity Delivery System Implanted:Qty: 1 on 05/24/2023 by Waylon Kim MD at [facility] Left: Eye 10/18/2025 / [id number] / [id number] Insurance MEDICAID MEDICAID [facility] [place] [address] Care Teams Hospital Orderly Relationship Specialty Start Date End Date Nikita Campa MD [address] [place] [address] PCP - General FAMILY PRACTICE 04/05/17 Chapo Muniz MD CARDIOVASCULAR DISEASE 04/05/17
== END 2025-02-20 12:13 | disposition home or self-care (01) ==
PROVIDERS: PCP Nurse Practitioner Family; Visit Provider Internal Medicine Cardiovascular Disease
DX: R60.0 Localized edema (principal); I35.8 Other nonrheumatic aortic valve disorders
CPT/HCPCS: 93306